=== PATIENT | male | born 1940 | race Caucasian/White ===

== ENCOUNTER 2017-10-09 10:58 | Observation (INO) | payer MEDICARE, MEDICAID ==
[~2017-10-09] VITALS: Ht 185.4 cm; Wt 103.5 kg
--- NOTE | 2017-10-09 11:33 | ED General ---
General Stated Complaint: FALL Source of Information: EMS History of Present Illness Time Seen by Provider: 10:58 Initial Comments PT ARRIVES VIA EMS FROM [facility] PT HAD UNWITNESSED FALL WITH UNKNOWN DOWN TIME, LAST KNOWN WELL TIME UNKNOWN PT WAS FOUND UNRESPONSIVE ON THE FLOOR NEXT TO HIS BED AT 1030 THIS AM, REMAINED UNRESPONSIVE UNTIL 1045 PT WITH ALTERED MENTAL STATUS PER SNF STAFF. PT HAS DEMENTIA PT C/O PAIN TO LEFT FLANK AREA TO EMS STAFF. PT CANNOT GIVE ANY INFORMATION ON ARRIVAL NOT REALLY ANSWERING QUESTIONS, BUT WILL NOD HEAD YES/NO OCCASIONALLY. PT IS NOT FOLLOWING COMMANDS WELL PT IS LETHARGIC ON ARRIVAL. Allergies and Home Medications Allergies Coded Allergies: amoxicillin (Verified Allergy, Unknown, 10/09/17) Home Medications Acetaminophen 500 Mg Tablet, 1,000 MG PO Q4H PRN for MILD PAIN/ FEVER OVER 100, (Reported) Atorvastatin Calcium 10 Mg Tablet, 10 MG PO HS, (Reported) Citalopram Hydrobromide 20 Mg Tablet, 20 MG PO DAILY, (Reported) Clonazepam 0.5 Mg Tablet, 0.5 MG PO TID, (Reported) Cyanocobalamin (Vitamin B-12) 1,000 Mcg Tab.subl, 1,000 MCG SL DAILY, (Reported) Gabapentin 800 Mg Tablet, 800 MG PO TID, (Reported) Glimepiride 1 Mg Tab, 1 MG PO DAILY, (Reported) Melatonin 3 Mg Tablet, 3 MG PO HS, (Reported) Melatonin 3 Mg Tablet, 9 MG PO HS PRN for INSOMNIA, (Reported) Memantine HCl 5 Mg Tablet, 5 MG PO DAILY, (Reported) Omeprazole 40 Mg Capsule.dr, 40 MG PO DAILY, (Reported) Promethazine HCl 25 Mg Tablet, 25 MG PO Q6H PRN for NAUSEA/VOMITING-2ND LINE, ( Reported) Sitagliptin Phosphate 100 Mg Tablet, 100 MG PO DAILY, (Reported) Sucralfate 1 Gm Tablet, 1 GM PO QID, (Reported) Tamsulosin HCl 0.4 Mg Cap, 0.4 MG PO HS, (Reported) Physical Exam Vital Signs Vital Sign - Last 12Hours 10/09/17 14:25 O2 Delivery Room Air Capillary Refill : General Appearance: No Apparent Distress, Other (LETHARGIC) HEENT: PERRL/EOMI, Other (NO EXTERNAL EVIDENCE OF TRAUM ) Respiratory: Normal Breath Sounds, No Accessory Muscle Use Cardiovascular: Regular Rate, Rhythm Gastrointestinal: Soft Extremity: No Pedal Edema Progress/Results/Core Measures Suspected Sepsis SIRS Temperature: Pulse: Respiratory Rate: Laboratory Tests 10/09/17 11:46: White Blood Count 7.7 10/10/17 04:40: White Blood Count 7.5 Blood Pressure / Mean: Laboratory Tests 10/09/17 11:46: Creatinine 0.82, INR Comment 1.0, Platelet Count 205, Total Bilirubin 0.4 10/10/17 04:40: Creatinine 0.84, Platelet Count 210, Total Bilirubin 0.4 Results/Orders Lab Results Laboratory Tests Test 10/09/17 11:46 10/09/17 12:27 10/09/17 20:33 10/10/17 04:40 Range/Units White Blood Count 7.7 7.5 4.3-11.0 10^3/uL Red Blood Count 4.38 4.23 L 4.35-5.85 10^6/uL Hemoglobin 14.0 13.4 13.3-17.7 G/DL Hematocrit 41 40 40-54 % Mean Corpuscular Volume 94 94 80-99 FL Mean Corpuscular Hemoglobin 32 32 25-34 PG Mean Corpuscular Hemoglobin Concent 34 34 32-36 G/DL Red Cell Distribution Width 14.3 14.3 10.0-14.5 % Platelet Count 205 210 130-400 10^3/uL Mean Platelet Volume 9.4 9.3 7.4-10.4 FL Neutrophils (%) (Auto) 62 61 42-75 % Lymphocytes (%) (Auto) 22 24 12-44 % Monocytes (%) (Auto) 10 10 0-12 % Eosinophils (%) (Auto) 5 5 0-10 % Basophils (%) (Auto) 1 1 0-10 % Neutrophils # (Auto) 4.8 4.6 1.8-7.8 X 10^3 Lymphocytes # (Auto) 1.7 1.8 1.0-4.0 X 10^3 Monocytes # (Auto) 0.8 0.8 0.0-1.0 X 10^3 Eosinophils # (Auto) 0.4 H 0.3 0.0-0.3 10^3/uL Basophils # (Auto) 0.1 0.1 0.0-0.1 10^3/uL Prothrombin Time 13.3 12.2-14.7 SEC INR Comment 1.0 0.8-1.4 Activated Partial Thromboplast Time 27 24-35 SEC Sodium Level 142 142 135-145 MMOL/L Potassium Level 4.3 3.8 3.6-5.0 MMOL/L Chloride Level 105 105 98-107 MMOL/L Carbon Dioxide Level 28 25 21-32 MMOL/L Anion Gap 9 12 5-14 MMOL/L Blood Urea Nitrogen 9 12 7-18 MG/DL Creatinine 0.82 0.84 0.60-1.30 MG/DL Estimat Glomerular Filtration Rate > 60 > 60 BUN/Creatinine Ratio 11 14 Glucose Level 79 102 70-105 MG/DL Calcium Level 9.5 9.2 8.5-10.1 MG/DL Magnesium Level 2.1 1.8-2.4 MG/DL Total Bilirubin 0.4 0.4 0.1-1.0 MG/DL Aspartate Amino Transf (AST/SGOT) 21 16 5-34 U/L Alanine Aminotransferase (ALT/SGPT) 23 21 0-55 U/L Alkaline Phosphatase 103 94 40-136 U/L Troponin I < 0.30 <0.30 NG/ML Total Protein 7.2 6.4 6.4-8.2 GM/DL Albumin 4.1 3.7 3.2-4.5 GM/DL Urine Color YELLOW Urine Clarity CLEAR Urine pH 8 5-9 Urine Specific [place] 1.015 L 1.016-1.022 Urine Protein NEGATIVE NEGATIVE Urine Glucose (UA) NEGATIVE NEGATIVE Urine Ketones NEGATIVE NEGATIVE Urine Nitrite NEGATIVE NEGATIVE Urine Bilirubin NEGATIVE NEGATIVE Urine Urobilinogen NORMAL NORMAL MG/DL Urine Leukocyte Esterase NEGATIVE NEGATIVE Urine RBC (Auto) NEGATIVE NEGATIVE Urine RBC NONE /HPF Urine WBC RARE /HPF Urine Squamous Epithelial Cells 0-2 /HPF Urine Renal Epithelial Cells NONE /HPF Urine Crystals NONE /LPF Urine Bacteria NEGATIVE /HPF Urine Casts NONE /LPF Urine Mucus NEGATIVE /LPF Urine Culture Indicated NO Glucometer 150 H 70-110 MG/DL My Orders Orders - JETT SORTO DO Saline Lock/Iv-Start (10/09/17 11:02) Monitor-Rhythm Ecg Trace Only (10/09/17 11:02) Ct Head/Cervical Spine Wo (10/09/17 11:02) Chest 1 View, Ap/Pa Only (10/09/17 11:02) Pelvis (1/17/18 11:02) Cbc With Automated Diff (10/09/17 11:02) Comprehensive Metabolic Panel (10/09/17 11:02) Magnesium (10/09/17 11:02) Protime With Inr (10/09/17 11:02) Partial Thromboplastin Time (10/09/17 11:02) Troponin I (10/09/17 11:02) Ua Culture If Indicated (10/09/17 11:02) Ekg Tracing (10/09/17 11:02) Ct Thoracic/Lumbar Spine Wo (10/09/17 11:10) Ct Chest/Abdomen/Pelvis Wo (10/09/17 11:10) Enoxaparin Injection (Lovenox Injection) (10/09/17 12:45) Vital Signs/I&O Vital Sign - Last 12Hours 10/10/17 10/10/17 10/10/17 10/10/17 12:00 12:06 13:00 15:38 Temp 99.2 99.0 Pulse 75 71 75 Resp 22 22 B/P (MAP) 125/81 (96) 138/84 (102) Pulse Ox 96 97 O2 Delivery Room Air Room Air Room Air 10/10/17 10/10/17 16:00 17:55 Pulse 75 Resp 22 B/P (MAP) 138/84 Pulse Ox 97 O2 Delivery Room Air Room Air Capillary Refill : Diagnostic Imaging Comments CT HEAD/CERVICAL SPINE--NO ACUTE PROCESS, CHRONIC CHANGES IN BRAIN AND CERVICAL SPINE, BENIGN APPEARING NODULE LEFT LOBE OF THYROID--PER RADIOLOGIST REPORT @ 1158 CXR--NO ACUTE PROCESS, PER RADIOLOGIST REPORT @ 1158 PELVIS XRAY--NO ACUTE PROCESS, PER RADIOLOGIST REPORT @ 1222 CT CHEST/ABDOMEN/PELVIS--NO ACUTE PROCESS, HIATAL HERNIA, OTHER CHRONIC APPEARING FINDINGS--PER RADIOLOGIST REPORT @ 1222 Reviewed: Reviewed by Me Departure Departure-Patient Inst. Referrals: DEANA ALFONSO DO (PCP/Family) Primary Care Physician JETT SORTO DO Oct 09, 2017 11:33
--- NOTE | 2017-10-09 11:40 | Diagnostic Imaging Report ---
Indication: Trauma. Patient was found on group home floor. Comparison: None Findings: Single frontal view of the chest is obtained. Heart size is upper limits normal. There is no central venous congestion. There is a pacer device in the left chest. Leads appear intact. There is a right coronary stent noted. There is no pneumothorax or pleural fluid seen. Lungs are clear. There are old healed rib fractures on the left. IMPRESSION: No evidence of an acute cardiopulmonary abnormality. Dictated by: Dictated on workstation # [id number]
--- NOTE | 2017-10-09 11:49 | Diagnostic Imaging Report ---
PROCEDURE: CT head and CT cervical spine without contrast. TECHNIQUE: Multiple contiguous axial images were obtained through the brain and cervical spine without the use of intravenous contrast. Sagittal and coronal reformations through the cervical spine were then performed. INDICATION: Unresponsive. COMPARISON: There are no prior studies available for comparison. CT OF THE HEAD: There is no mass, shift of the midline, or hemorrhage to suggest an acute intracranial abnormality. The ventricles are not abnormally dilated. There are areas of low density in the periventricular matter bilaterally. These findings are nonspecific but may be secondary to encephalomalacia from microvascular ischemia. Cortical atrophy is also seen. The degree of atrophy is consistent with the patient's age. The bone windows show no sign of a fracture or of a destructive lesion. The orbits are symmetrical and within normal limits. There is mucosal thickening of the left frontal and ethmoid sinuses. The sinuses are otherwise generally clear. IMPRESSION: 1. There is no evidence for an acute intracranial abnormality. 2. There is left frontal and left ethmoid sinusitis. CT CERVICAL SPINE: The reconstructed sagittal images show the vertebral body heights and alignment to be generally within normal limits. The intervertebral spaces are fairly well maintained. There is no evidence for a central high-grade stenosis, but there is narrowing of the neural foramen on the right at C5-6 due to bony overgrowth. There is no sign of retropharyngeal edema. The lung apices, where visualized, are clear. There is an 8 mm low-density nodule in the left lobe of the thyroid. This finding is most likely benign, but ultrasound would be recommended for further study. IMPRESSION: 1. There is no evidence for an acute bony abnormality. 2. The low-density nodule in the left lobe of the thyroid is of uncertain etiology although most likely benign. Recommendations as above. Dictated by: Dictated on workstation # [id number]
--- NOTE | 2017-10-09 12:04 | Diagnostic Imaging Report ---
PROCEDURE: CT chest, abdomen, and pelvis without contrast. TECHNIQUE: Multiple contiguous axial images were obtained through the chest, abdomen, and pelvis without the use of intravenous contrast. INDICATION: Unresponsive. COMPARISON: There are no previous CT examinations available for comparison. FINDINGS: The images through the thorax show that the heart is enlarged and that there are coronary artery calcifications evident. There is also a left-sided pacemaker in place. The aorta is not abnormally dilated. There is no obvious mediastinal or hilar adenopathy. There are few small nodes in the aortopulmonary window. These are nonspecific. The thyroid gland where visualized is unremarkable. There is dependent atelectasis in both lung bases. The lungs are otherwise generally clear. There is a 5.4 x 8.1 cm hiatal hernia. The stomach is otherwise unremarkable. The liver contains a small 2.5 cm lobulated area of low density in the right lobe. This is most likely a cyst. The gallbladder is surgically absent. The spleen, pancreas, adrenals, kidneys, aorta and inferior vena cava show no sign of an acute abnormality. The anterior abdominal wall is thinned, but there is no evidence for a ventral hernia. The urinary bladder and prostate gland are grossly unremarkable. There is no pelvic mass or free fluid collection evident. The appendix is not well visualized, but there are no indirect signs of acute appendicitis. The bone windows show no sign of a fracture or of a destructive lesion. IMPRESSION: 1. There is no acute abnormality of the chest, abdomen, or pelvis. 2. There is cardiomegaly and coronary artery disease. 3. There is a large hiatal hernia. Dictated by: Dictated on workstation # [id number]
[2017-10-09 12:10] LABS: BASOPHILS # (AUTO) 0.1 10^3/uL (0.0-0.1); BASOPHILS % (AUTO) 1 % (0-10); EOSINOPHILS # (AUTO) 0.4 10^3/uL (0.0-0.3); EOSINOPHILS % (AUTO) 5 % (0-10); HEMATOCRIT 41 % (40-54); LYMPHOCYTES # (AUTO) 1.7 X 10^3 (1.0-4.0); LYMPHOCYTES % (AUTO) 22 % (12-44); MEAN CORPUSCULAR HEMOGLOBIN 32 PG (25-34); MEAN CORPUSCULAR HGB CONC 34 G/DL (32-36); MEAN CORPUSCULAR VOLUME 94 FL (80-99); MEAN PLATELET VOLUME 9.4 FL (7.4-10.4); MONOCYTES # (AUTO) 0.8 X 10^3 (0.0-1.0); MONOCYTES % (AUTO) 10 % (0-12); NEUTROPHILS # (AUTO) 4.8 X 10^3 (1.8-7.8); NEUTROPHILS % (AUTO) 62 % (42-75); PLATELET COUNT 205 10^3/uL (130-400); RED BLOOD COUNT 4.38 10^6/uL (4.35-5.85); RED CELL DISTRIBUTION WIDTH 14.3 % (10.0-14.5); WHITE BLOOD COUNT 7.7 10^3/uL (4.3-11.0)
--- NOTE | 2017-10-09 12:17 | Diagnostic Imaging Report ---
INDICATION: Patient found down AP view of the pelvis Single view of pelvis shows no fracture or dislocation. IMPRESSION: Negative pelvis. Dictated by: Dictated on workstation # [id number]
[2017-10-09 12:20] LABS: PROTHROMBIN TIME PATIENT 13.3 SEC (12.2-14.7)
[2017-10-09 12:29] LABS: ALANINE AMINOTRANSFERASE 23 U/L (0-55); ALBUMIN 4.1 GM/DL (3.2-4.5); ALKALINE PHOSPHATASE 103 U/L (40-136); BILIRUBIN,TOTAL 0.4 MG/DL (0.1-1.0); BUN/CREATININE RATIO 11; CALCIUM 9.5 MG/DL (8.5-10.1); CARBON DIOXIDE 28 MMOL/L (21-32); CHLORIDE 105 MMOL/L (98-107); CREATININE SERUM 0.82 MG/DL (0.60-1.30); GFR ESTIMATED > 60; GLUCOSE 79 MG/DL (70-105); MAGNESIUM 2.1 MG/DL (1.8-2.4); POTASSIUM 4.3 MMOL/L (3.6-5.0); SODIUM 142 MMOL/L (135-145); TOTAL PROTEIN 7.2 GM/DL (6.4-8.2)
[2017-10-09 12:38] LABS: BILIRUBIN,URINE NEGATIVE (NEGATIVE); CLARITY,URINE CLEAR; COLOR,URINE YELLOW; GLUCOSE, URINE (UA) NEGATIVE (NEGATIVE); KETONES,URINE NEGATIVE (NEGATIVE); LEUKOCYTE ESTERASE ,URINE NEGATIVE (NEGATIVE); NITRITE,URINE NEGATIVE (NEGATIVE); PH,URINE 8 (5-9); PROTEIN,URINE NEGATIVE (NEGATIVE); UROBILINOGEN,URINE NORMAL (NORMAL)
[2017-10-09] MEDS ORDERED: GLMP1T PO (12:39)
[2017-10-09] MEDS ORDERED: MEMA5TAB PO (12:39)
[2017-10-09] MEDS ORDERED: TAMS0.4C98 PO (12:39)
[2017-10-09] MEDS ORDERED: CITA20TA12 PO (12:39)
[2017-10-09] MEDS ORDERED: ATOR10TA PO (12:39)
[2017-10-09] MEDS ORDERED: SITA100T12 PO (12:39)
[2017-10-09] MEDS ORDERED: CLON0.5T PO (12:39)
[2017-10-09] MEDS ORDERED: SUCR1TAB36 PO (12:39)
--- NOTE | 2017-10-09 12:40 | Diagnostic Imaging Report ---
INDICATION: Patient found down CT thoracic lumbar spine Vertebral body height appears normal. Alignment is normal. There is advanced degenerative disc change at L4-5. There are mild degenerative disc changes elsewhere. Posterior elements are intact. IMPRESSION: There are degenerative disc changes at L4-5. There are no acute abnormalities seen. Dictated by: Dictated on workstation # [id number]
[2017-10-09 12:53] LABS: BACTERIA,URINE NEGATIVE /HPF; SQUAMOUS EPITHELIAL CELL,UR 0-2 /HPF; WBC,URINE RARE /HPF
[2017-10-09] MEDS: ENOXAPARIN 40 MG/0.4 ML (LOVENOX) SYR SC ONE ×2 (13:52→14:04)
[2017-10-09 14:25] VITALS: BP 123/73
[2017-10-09] MEDS ORDERED: CYAN100015 SL (14:46)
[2017-10-09] MEDS ORDERED: GABA800T2 PO (14:46)
[2017-10-09] MEDS ORDERED: MELA3TAB PO (14:46)
[2017-10-09] MEDS ORDERED: PROM25TA14 PO (14:46)
[2017-10-09] MEDS ORDERED: OMEP40CA36 PO (14:46)
[2017-10-09] MEDS ORDERED: ACET-2267 PO (14:46)
[2017-10-09] MEDS ORDERED: CATHETER FLUSH 10 ML SYR IV PRN (15:00)
[2017-10-09 16:20] VITALS: BP 125/72
--- NOTE | 2017-10-09 19:06 | History & Physicial ---
History of Present Illness History of Present Illness Reason for visit/HPI patient is a resident of a [place] [facility]. Patient had a syncope attack by his bed at 1030 a.m. Patient had acute mental status change. Patient was unresponsive. Patient emergency room was unable to give any type of history [place] able to communicate. Patient has dementia. . Patient is responsive now. Patient states he had a blackout episode. Surgeries back in aortic aneurysm and a hernia and knee replacement and pacemaker due to slow heart rate in the 30s. Mother and father heart disease, brother cancer Date of Admission Oct 09, 2017 at 12:35 Time Seen by Provider: 19:00 I consulted on this patient on 10/09/17 19:01 Attending Physician Ap Alfonso DO Admitting Physician Ap Alfonso DO Consult Allergies and Home Medications Allergies Coded Allergies: amoxicillin (Verified Allergy, Unknown, 10/09/17) Home Medications Acetaminophen 500 Mg Tablet, 1,000 MG PO Q4H PRN for MILD PAIN/ FEVER OVER 100, (Reported) Atorvastatin Calcium 10 Mg Tablet, 10 MG PO HS, (Reported) Citalopram Hydrobromide 20 Mg Tablet, 20 MG PO DAILY, (Reported) Clonazepam 0.5 Mg Tablet, 0.5 MG PO TID, (Reported) Cyanocobalamin (Vitamin B-12) 1,000 Mcg Tab.subl, 1,000 MCG SL DAILY, (Reported) Gabapentin 800 Mg Tablet, 800 MG PO TID, (Reported) Glimepiride 1 Mg Tab, 1 MG PO DAILY, (Reported) Melatonin 3 Mg Tablet, 3 MG PO HS, (Reported) Melatonin 3 Mg Tablet, 9 MG PO HS PRN for INSOMNIA, (Reported) Memantine HCl 5 Mg Tablet, 5 MG PO DAILY, (Reported) Omeprazole 40 Mg Capsule.dr, 40 MG PO DAILY, (Reported) Promethazine HCl 25 Mg Tablet, 25 MG PO Q6H PRN for NAUSEA/VOMITING-2ND LINE, ( Reported) Sitagliptin Phosphate 100 Mg Tablet, 100 MG PO DAILY, (Reported) Sucralfate 1 Gm Tablet, 1 GM PO QID, (Reported) Tamsulosin HCl 0.4 Mg Cap, 0.4 MG PO HS, (Reported) Past Sufonit-Ybiics-Yyymda Hx Patient Social History Marrital Status: Employed/Student: unemployed Alcohol Use: Denies Use Recreational Drug Use: No Smoking Status: Current Everyday Smoker Type Used: Cigarettes Recent Foreign Travel: No Contact w/other who traveled: No Recent Infectious Disease Expo: No Surgeries Yes (hiatal hernia repair, AAA repair) Abdominal, Gallbladder, Pacemaker Respiratory Yes Cardiovascular Yes (chronic ischemic heart disease) Atrial Fibrillation, High Cholesterol Neurological Yes Dementia, Stroke, TIA Genitourinary No Gastrointestinal No Musculoskeletal Yes (generalized weakness) Endocrine History of Endocrine Disorders: Yes Endocrine Disorders: Diabetes, Non-Insulin dep HEENT History of HEENT Disorders: Yes Hearing Impairment: Hard of Hearing Cancer No Psychosocial History of Psychiatric Problem: Yes Behavioral Health Disorders: Anxiety, Depression Blood Transfusions History of Blood Disorders: No Adverse Reaction to a Blood Tr: No Constitutional: weakness EENTM: no symptoms reported Respiratory: no symptoms reported Cardiovascular: other (pacemaker) Gastrointestinal: no symptoms reported Genitourinary: no symptoms reported Physical Exam Vital Signs Vital Sign - Last 12Hours 10/09/17 14:25 O2 Delivery Room Air Capillary Refill : Less Than 3 Seconds General Appearance: No Apparent Distress, WD/WN Eyes: Bilateral Eye Normal Inspection HEENT: Normal ENT Inspection Neck: Full Range of Motion, Normal Inspection Respiratory: Chest Non Tender, No Accessory Muscle Use, No Respiratory Distress Cardiovascular: Regular Rate, Rhythm, No Murmur Gastrointestinal: Non Tender, Soft Assessment/Plan Assessment and Plan syncope. Altered mental status. Pacemaker. Dementia. Diabetes Problems: AP ALFONSO DO Oct 09, 2017 19:06
[2017-10-09] MEDS ORDERED: MELATONIN 3 MG TABLET PO PRN (19:45)
[2017-10-09] MEDS: SUCRALFATE 1 GM (CARAFATE) TAB PO SCH (20:35)
[2017-10-09] MEDS: TRIAMCINOLONE 0.1% CR (KENALOG) 15 GM TUBE TOP SCH (20:35)
[2017-10-09] MEDS: inSUlin (REGULAR) HUMAN 1 UNIT/0.01 ML (CHARGE PER UNIT) SC SCH (20:36)
[2017-10-09] MEDS: clonazePAM 0.5 MG (KlonoPIN) TAB PO SCH (20:36)
[2017-10-09] MEDS: GABAPENTIN 400 MG (NEURONTIN) CAP PO SCH (20:36)
[2017-10-09 20:37] VITALS: BP 127/68
[2017-10-09] MEDS ORDERED: MELATONIN 3 MG TABLET PO SCH (21:00)
[2017-10-09] MEDS ORDERED: ATORVASTATIN 10 MG (LIPITOR) TABLET PO SCH (21:00)
[2017-10-09] MEDS ORDERED: TAMSULOSIN 0.4 MG (FLOMAX) CAP PO SCH (21:00)
[2017-10-09] MEDS ORDERED: NON-FORMULARY MEDICATION 1 EA EA (Gabapentin 800 MG) PO SCH (21:00)
[2017-10-09] MEDS: CATHETER FLUSH 10 ML SYR IV SCH (21:59)
[2017-10-09] MEDS ORDERED: ENOXAPARIN 40 MG/0.4 ML (LOVENOX) SYR SC SCH (22:00)
[2017-10-09 22:30] VITALS: BP 118/63
[2017-10-10] VITALS: BP 115/70
[2017-10-10 04:00] VITALS: BP 133/77
[2017-10-10] MEDS: CATHETER FLUSH 10 ML SYR IV SCH ×2 (05:12→15:35)
[2017-10-10 05:17] LABS: BASOPHILS # (AUTO) 0.1 10^3/uL (0.0-0.1); BASOPHILS % (AUTO) 1 % (0-10); EOSINOPHILS # (AUTO) 0.3 10^3/uL (0.0-0.3); EOSINOPHILS % (AUTO) 5 % (0-10); HEMATOCRIT 40 % (40-54); HEMOGLOBIN 13.4 G/DL (13.3-17.7); LYMPHOCYTES # (AUTO) 1.8 X 10^3 (1.0-4.0); LYMPHOCYTES % (AUTO) 24 % (12-44); MEAN CORPUSCULAR HEMOGLOBIN 32 PG (25-34); MEAN CORPUSCULAR HGB CONC 34 G/DL (32-36); MEAN CORPUSCULAR VOLUME 94 FL (80-99); MEAN PLATELET VOLUME 9.3 FL (7.4-10.4); MONOCYTES # (AUTO) 0.8 X 10^3 (0.0-1.0); MONOCYTES % (AUTO) 10 % (0-12); NEUTROPHILS # (AUTO) 4.6 X 10^3 (1.8-7.8); NEUTROPHILS % (AUTO) 61 % (42-75); PLATELET COUNT 210 10^3/uL (130-400); RED BLOOD COUNT 4.23 10^6/uL (4.35-5.85); RED CELL DISTRIBUTION WIDTH 14.3 % (10.0-14.5); WHITE BLOOD COUNT 7.5 10^3/uL (4.3-11.0)
[2017-10-10 06:02] LABS: ALANINE AMINOTRANSFERASE 21 U/L (0-55); ALBUMIN 3.7 GM/DL (3.2-4.5); ALKALINE PHOSPHATASE 94 U/L (40-136); BILIRUBIN,TOTAL 0.4 MG/DL (0.1-1.0); BUN/CREATININE RATIO 14; CALCIUM 9.2 MG/DL (8.5-10.1); CARBON DIOXIDE 25 MMOL/L (21-32); CHLORIDE 105 MMOL/L (98-107); CREATININE SERUM 0.84 MG/DL (0.60-1.30); GFR ESTIMATED > 60; GLUCOSE 102 MG/DL (70-105); POTASSIUM 3.8 MMOL/L (3.6-5.0); SODIUM 142 MMOL/L (135-145); TOTAL PROTEIN 6.4 GM/DL (6.4-8.2)
[2017-10-10] MEDS: inSUlin (REGULAR) HUMAN 1 UNIT/0.01 ML (CHARGE PER UNIT) SC SCH ×2 (06:05→11:31)
[2017-10-10] MEDS ORDERED: LINAGLIPTIN (TRADJENTA) 5 MG TABLET PO SCH (07:00)
[2017-10-10] MEDS ORDERED: INFLUENZA TRIvalent 2017-2018 0.5 ML/45 MCG SYR IM ONE (07:00)
[2017-10-10] MEDS ORDERED: PANTOPRAZOLE 40 MG (PROTONIX) TAB PO SCH (07:00)
--- NOTE | 2017-10-10 07:39 | Progress Note (SOAP) ---
Subjective Time Seen by Provider: 07:35 Subjective/Events-last exam patient is awake today. Patient voices no complaints. Patient has thyroid nodule. CAT scan this morning. Objective Exam Vital Signs Date Time Temp Pulse Resp B/P (MAP) Pulse Ox O2 Delivery O2 Flow Rate FiO2 10/10/17 04:00 97.6 65 18 133/77 (95) 96 Room Air 10/10/17 04:00 Room Air 10/10/17 01:00 70 10/10/17 00:00 98.9 70 16 115/70 (85) 94 Room Air 10/10/17 00:00 Room Air 10/09/17 22:30 98.9 69 18 118/63 (81) 93 Room Air 10/09/17 21:00 96 Room Air 10/09/17 20:37 99.1 73 18 127/68 (87) 94 Room Air 10/09/17 20:37 Room Air 10/09/17 19:00 73 10/09/17 16:20 97.9 69 20 125/72 (89) 95 Room Air 10/09/17 16:20 Room Air 10/09/17 15:48 77 10/09/17 14:30 Room Air 10/09/17 14:25 96.9 69 20 123/73 (90) 96 Room Air 10/09/17 14:13 97.1 69 18 98 10/09/17 12:27 97.1 90 18 133/81 (98) 97 10/09/17 12:27 97.1 90 18 133/81 (98) 97 I & O 10/10/17 07:00 Intake Total 250 ml Output Total 300 ml Balance -50 ml Capillary Refill : Less Than 3 Seconds General Appearance: No Apparent Distress, WD/WN HEENT: Normal ENT Inspection Neck: Full Range of Motion, Normal Inspection Respiratory: Chest Non Tender, No Accessory Muscle Use, No Respiratory Distress Cardiovascular: Regular Rate, Rhythm, No Murmur Gastrointestinal: non tender, soft Results Lab Laboratory Tests 10/09/17 11:46 10/10/17 04:40 Laboratory Tests 10/09/17 11:46: White Blood Count 7.7, Red Blood Count 4.38, Hemoglobin 14.0, Hematocrit 41, Mean Corpuscular Volume 94, Mean Corpuscular Hemoglobin 32, Mean Corpuscular Hemoglobin Concent 34, Red Cell Distribution Width 14.3, Platelet Count 205, Mean Platelet Volume 9.4, Neutrophils (%) (Auto) 62, Lymphocytes (%) (Auto) 22, Monocytes (%) (Auto) 10, Eosinophils (%) (Auto) 5, Basophils (%) (Auto) 1, Neutrophils # (Auto) 4.8, Lymphocytes # (Auto) 1.7, Monocytes # (Auto) 0.8, Eosinophils # (Auto) 0.4H, Basophils # (Auto) 0.1, Prothrombin Time 13.3, INR Comment 1.0, Activated Partial Thromboplast Time 27, Sodium Level 142, Potassium Level 4.3, Chloride Level 105, Carbon Dioxide Level 28, Anion Gap 9, Blood Urea Nitrogen 9, Creatinine 0.82, Estimat Glomerular Filtration Rate > 60 , BUN/Creatinine Ratio 11, Glucose Level 79, Calcium Level 9.5, Magnesium Level 2.1, Total Bilirubin 0.4, Aspartate Amino Transf (AST/SGOT) 21, Alanine Aminotransferase (ALT/SGPT) 23, Alkaline Phosphatase 103, Troponin I < 0.30, Total Protein 7.2, Albumin 4.1 10/09/17 12:27: Urine Color YELLOW, Urine Clarity CLEAR, Urine pH 8, Urine Specific [place] 1.015L, Urine Protein NEGATIVE, Urine Glucose (UA) NEGATIVE, Urine Ketones NEGATIVE, Urine Nitrite NEGATIVE, Urine Bilirubin NEGATIVE, Urine Urobilinogen NORMAL, Urine Leukocyte Esterase NEGATIVE, Urine RBC (Auto) NEGATIVE, Urine RBC NONE, Urine WBC RARE, Urine Squamous Epithelial Cells 0-2, Urine Renal Epithelial Cells NONE, Urine Crystals NONE, Urine Bacteria NEGATIVE, Urine Casts NONE, Urine Mucus NEGATIVE, Urine Culture Indicated NO 10/09/17 20:33: Glucometer 150H 10/10/17 04:40: White Blood Count 7.5, Red Blood Count 4.23L, Hemoglobin 13.4, Hematocrit 40, Mean Corpuscular Volume 94, Mean Corpuscular Hemoglobin 32, Mean Corpuscular Hemoglobin Concent 34, Red Cell Distribution Width 14.3, Platelet Count 210, Mean Platelet Volume 9.3, Neutrophils (%) (Auto) 61, Lymphocytes (%) (Auto) 24, Monocytes (%) (Auto) 10, Eosinophils (%) (Auto) 5, Basophils (%) (Auto) 1, Neutrophils # (Auto) 4.6, Lymphocytes # (Auto) 1.8, Monocytes # (Auto) 0.8, Eosinophils # (Auto) 0.3, Basophils # (Auto) 0.1, Sodium Level 142, Potassium Level 3.8, Chloride Level 105, Carbon Dioxide Level 25, Anion Gap 12, Blood Urea Nitrogen 12, Creatinine 0.84, Estimat Glomerular Filtration Rate > 60, BUN/ Creatinine Ratio 14, Glucose Level 102, Calcium Level 9.2, Total Bilirubin 0.4, Aspartate Amino Transf (AST/SGOT) 16, Alanine Aminotransferase (ALT/SGPT) 21, Alkaline Phosphatase 94, Total Protein 6.4, Albumin 3.7 Assessment/Plan Assessment/Plan Assess & Plan/Chief Complaint incomplete. Dementia. Diabetes. Thyroid nodule. Altered mental status better Clinical Quality Measures DVT/VTE Risk/Contraindication: Risk Factor Score Per Nursin RFS Level Per Nursing on Admit: 4+=Very High DEANA ALFONSO DO Oct 10, 2017 07:39
[2017-10-10 08:39] VITALS: BP 135/73
[2017-10-10] MEDS: GABAPENTIN 400 MG (NEURONTIN) CAP PO SCH ×2 (08:41→15:35)
[2017-10-10] MEDS: SUCRALFATE 1 GM (CARAFATE) TAB PO SCH ×2 (08:41→15:34)
[2017-10-10] MEDS: clonazePAM 0.5 MG (KlonoPIN) TAB PO SCH ×2 (08:41→15:34)
[2017-10-10] MEDS: TRIAMCINOLONE 0.1% CR (KENALOG) 15 GM TUBE TOP SCH (08:43)
[2017-10-10] MEDS ORDERED: MEMANTINE 5 MG (NAMENDA) TABLET PO SCH (09:00)
[2017-10-10] MEDS ORDERED: NON-FORMULARY MEDICATION 1 EA EA (Sitagliptin Phosphate (Januvia) 100 MG) PO SCH (09:00)
[2017-10-10] MEDS ORDERED: NON-FORMULARY MEDICATION 1 EA EA (Omeprazole 40 MG) PO SCH (09:00)
--- NOTE | 2017-10-10 09:48 | Consultation-Cardiology ---
HPI-Cardiology Cardiology Consultation: Date of Consultation 10/10/17 Time Seen by Provider: 09:20 Date of Admission 10-09-17 Attending Physician Ap Avila DO Admitting Physician Ap Avila DO Consulting Physician Ruthy Beverly MD HPI: Chief Complaint: Syncope Mr. Cueva is a 77 year old male admitted to ICU 2 from the ED from the [facility] facility in which he resides. He reports he was in his wheelchair yesterday afternoon. He states he began to feel weak and lightheaded. He reports everything when black and he passed out. He is unclear as to how long he was out for. Per facility records and chart review they report approx 10 minutes. It was an unwitnessed syncopal episode. He reports a similar episode approx a year ago. He reports he had an episode of chest pain yesterday morning which felt like a heavy pressure on his chest. He reports he felt his heart rate started to go slow. He states this lasted for approx 2 minutes and then resolved. No other associated symptoms. No c/o dyspnea. He denies any lower extremity edema. No c/o palpitations. No c/o n/v/d. No c/o fever or chills. Review of Systems-Cardiology Review of Systems Constitutional: No chills, No fever Eyes: No vision change Ears/Nose/Throat: No epistaxis, No recent hearing loss Respiratory: As described under HPI Cardiovascular: As described under HPI Gastrointestinal: No constipation, No diarrhea, No nausea, No vomiting Genitourinary: No dysuria, No hematuria Musculoskeletal: no symptoms reported Skin: No rash, No ulcerations Psychiatric/Neurological: syncope Hematologic: No bleeding abnormalities VHN-Qqhocr-Wsiids Hx Patient Social History Marrital Status: Employed/Student: unemployed Alcohol Use: Denies Use Recreational Drug Use: No Smoking Status: Current Everyday Smoker Type Used: Cigarettes Recent Foreign Travel: No Recent Infectious Disease Expo: No Physical Abuse Screen: No Sexual Abuse: No Immunizations Up To Date Date of Influenza Vaccine: Sep 09, 2017 Past Medical History PMH As described under Assessment. Family Medical History Family History: Unknown family medical history Allergies and Home Medications Allergies Coded Allergies: amoxicillin (Verified Allergy, Unknown, 10/09/17) Home Medications Acetaminophen 500 Mg Tablet, 1,000 MG PO Q4H PRN for MILD PAIN/ FEVER OVER 100, (Reported) Atorvastatin Calcium 10 Mg Tablet, 10 MG PO HS, (Reported) Citalopram Hydrobromide 20 Mg Tablet, 20 MG PO DAILY, (Reported) Clonazepam 0.5 Mg Tablet, 0.5 MG PO TID, (Reported) Cyanocobalamin (Vitamin B-12) 1,000 Mcg Tab.subl, 1,000 MCG SL DAILY, (Reported) Gabapentin 800 Mg Tablet, 800 MG PO TID, (Reported) Glimepiride 1 Mg Tab, 1 MG PO DAILY, (Reported) Melatonin 3 Mg Tablet, 3 MG PO HS, (Reported) Melatonin 3 Mg Tablet, 9 MG PO HS PRN for INSOMNIA, (Reported) Memantine HCl 5 Mg Tablet, 5 MG PO DAILY, (Reported) Omeprazole 40 Mg Capsule.dr, 40 MG PO DAILY, (Reported) Promethazine HCl 25 Mg Tablet, 25 MG PO Q6H PRN for NAUSEA/VOMITING-2ND LINE, ( Reported) Sitagliptin Phosphate 100 Mg Tablet, 100 MG PO DAILY, (Reported) Sucralfate 1 Gm Tablet, 1 GM PO QID, (Reported) Tamsulosin HCl 0.4 Mg Cap, 0.4 MG PO HS, (Reported) Physical Exam-Cardiology Physical Exam Vital Signs/I&O Vital Sign - Last 12Hours 10/10/17 10/10/17 10/10/17 10/10/17 04:00 04:00 07:00 08:00 Temp 97.6 Pulse 65 70 Resp 18 B/P (MAP) 133/77 (95) Pulse Ox 96 O2 Delivery Room Air Room Air Room Air 10/10/17 10/10/17 10/10/17 08:39 09:00 12:06 Temp 99.2 99.2 Pulse 74 75 Resp 25 22 B/P (MAP) 135/73 (93) 125/81 (96) Pulse Ox 96 96 O2 Delivery Room Air Room Air Room Air Capillary Refill : Less Than 3 Seconds Constitutional: AAO x 3, well-developed, well-nourished HEENT: PERRL, hearing is well preserved, No xanthelasmas are seen Neck: carotid pulses are 2 + bilaterally Respiratory: No accessory muscle use, No respiratory distress, lungs clear to auscultation, rhonchi (scattered) Cardiovascular: regular rate-rhythm Gastrointestinal: No tender, soft, audible bowel sounds Rectal: deferred Extremities: no lower extremity edema bilateral Neurologic/Psychiatric: oriented x 3, grossly intact Skin: No rash, No ulcerations Data Review Labs Laboratory Tests 10/09/17 20:33: Glucometer 150H 10/10/17 04:40: White Blood Count 7.5, Red Blood Count 4.23L, Hemoglobin 13.4, Hematocrit 40, Mean Corpuscular Volume 94, Mean Corpuscular Hemoglobin 32, Mean Corpuscular Hemoglobin Concent 34, Red Cell Distribution Width 14.3, Platelet Count 210, Mean Platelet Volume 9.3, Neutrophils (%) (Auto) 61, Lymphocytes (%) (Auto) 24, Monocytes (%) (Auto) 10, Eosinophils (%) (Auto) 5, Basophils (%) (Auto) 1, Neutrophils # (Auto) 4.6, Lymphocytes # (Auto) 1.8, Monocytes # (Auto) 0.8, Eosinophils # (Auto) 0.3, Basophils # (Auto) 0.1, Sodium Level 142, Potassium Level 3.8, Chloride Level 105, Carbon Dioxide Level 25, Anion Gap 12, Blood Urea Nitrogen 12, Creatinine 0.84, Estimat Glomerular Filtration Rate > 60, BUN/ Creatinine Ratio 14, Glucose Level 102, Calcium Level 9.2, Total Bilirubin 0.4, Aspartate Amino Transf (AST/SGOT) 16, Alanine Aminotransferase (ALT/SGPT) 21, Alkaline Phosphatase 94, Total Protein 6.4, Albumin 3.7 Radiology NAME: IZABELLA CUEVA [facility] REC#: [id number] PT STATUS: REG ER : 02/20/1950 PHYSICIAN: JETT SORTO DO ADMIT DATE: 10/09/17/ER Draft Date of Exam:10/09/17 CT CHEST/ABDOMEN/PELVIS WO PROCEDURE: CT chest, abdomen, and pelvis without contrast. TECHNIQUE: Multiple contiguous axial images were obtained through the chest, abdomen, and pelvis without the use of intravenous contrast. INDICATION: Unresponsive. COMPARISON: There are no previous CT examinations available for comparison. FINDINGS: The images through the thorax show that the heart is enlarged and that there are coronary artery calcifications evident. There is also a left-sided pacemaker in place. The aorta is not abnormally dilated. There is no obvious mediastinal or hilar adenopathy. There are few small nodes in the aortopulmonary window. These are nonspecific. The thyroid gland where visualized is unremarkable. There is dependent atelectasis in both lung bases. The lungs are otherwise generally clear. There is a 5.4 x 8.1 cm hiatal hernia. The stomach is otherwise unremarkable. The liver contains a small 2.5 cm lobulated area of low density in the right lobe. This is most likely a cyst. The gallbladder is surgically absent. The spleen, pancreas, adrenals, kidneys, aorta and inferior vena cava show no sign of an acute abnormality. The anterior abdominal wall is thinned, but there is no evidence for a ventral hernia. The urinary bladder and prostate gland are grossly unremarkable. There is no pelvic mass or free fluid collection evident. The appendix is not well visualized, but there are no indirect signs of acute appendicitis. The bone windows show no sign of a fracture or of a destructive lesion. IMPRESSION: 1. There is no acute abnormality of the chest, abdomen, or pelvis. 2. There is cardiomegaly and coronary artery disease. 3. There is a large hiatal hernia. Dictated on workstation # [id number] Dict: 10/09/17 1150 Trans: 10/09/17 1204 [id number] Interpreted by: TOM CORDON MD Electronically signed by: NAME: IZABELLA CUEVA MED REC#: [id number] PT STATUS: ADM Fernando : 1940 PHYSICIAN: JETT SORTO DO ADMIT DATE: 10/09/17/ICU Signed Date of Exam: 10/09/17 CT THORACIC/LUMBAR SPINE WO INDICATION: Patient found down CT thoracic lumbar spine Vertebral body height appears normal. Alignment is normal. There is advanced degenerative disc change at L4-5. There are mild degenerative disc changes elsewhere. Posterior elements are intact. IMPRESSION: There are degenerative disc changes at L4-5. There are no acute abnormalities seen. Dictated by: Dictated on workstation # [id number] Dict: 10/09/17 1223 Trans: 10/09/17 1336 Interpreted by: STEFFEN PHELAN MD Electronically signed by: STEFFEN PHELAN MD 10/09/17 1330 NAME: IZABELLA CUEVA MED REC#: [id number] PT STATUS: ADM Fernando : 1940 PHYSICIAN: JETT SORTO DO ADMIT DATE: 10/09/17/ICU Signed Date of Exam: 10/09/17 CHEST 1 VIEW, AP/PA ONLY Indication: Trauma. Patient was found on fdc floor. Comparison: None Findings: Single frontal view of the chest is obtained. Heart size is upper limits normal. There is no central venous congestion. There is a pacer device in the left chest. Leads appear intact. There is a right coronary stent noted. There is no pneumothorax or pleural fluid seen. Lungs are clear. There are old healed rib fractures on the left. IMPRESSION: No evidence of an acute cardiopulmonary abnormality. 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 Jo February 2011. Pt reports device has not been checked in 3 years Reports h/o CAD with stent placement in the early at [facility] in [place], [place] - reports he was following with Dr. Gamble at [facility], but has not seen him in several years Reports h/o AAA repair with graft placement by Dr. Bojorquez at [facility] in [place], [place] in the s or s Paroxysmal a-fib which he reports was diagnosed 3 years ago. He states he refuses OAC of any kind other than ASA HTN HLP DM Type 2 GERD Hiatal hernia H/O traumatic brain injury from [place] Discussion and Recomendations Unwitnessed syncopal episode of undetermined etiology PPM with recent pulse generator change out in 2010; we will interrogate device ( pt reports has not been done in 3 years) Echocardiogram to evaluate structure and LVEF H/O CAD with stent placement in the . Episode of chest discomfort yesterday. No evidence of ACS. Discussed coronary work up to which he refuses. He desires conservative tx H/O PAF. He is not on OAC. We have discussed this with him in detail including risk of stroke. He verbalizes understanding and refuses OAC. He is agreeable to low dose ASA tx Monitor lab Continue home medications Further rec will be based on his hospital course We would like to thank medical services for this consult This consult is being scribed by Dagoberto Heard APRN on behalf of Dr. Beverly after discussion regarding plan of care Clinical Quality Measures DVT/VTE Risk/Contraindication: Risk Factor Score Per Nursin RFS Level Per Nursing on Admit: 4+=Very High Physician Assessment Physician Assessment No cp or palp or syncope at time of my exam Lungs: clear Cor: reg Ext: no c/c/e A&R * As documented in our note above that I updated (italics) and as noted below * I had a detailed conversation with him. He refuses any coronary w/u. Does agree to echo and pacemaker interrogation * Monitor labs VISH HEARD Oct 10, 2017 09:48 RUTHY BEVERLY MD FACP FAC CCDS Oct 10, 2017 13:12
[2017-10-10] MEDS ORDERED: ASPIRIN 325 MG (5 GR) TABLET PO NR (10:45)
--- NOTE | 2017-10-10 10:49 | Diagnostic Imaging Report ---
INDICATION: Thyroid nodule noted on CT. TECHNIQUE: Grayscale sonographic images of the thyroid gland. CORRELATION STUDY: None FINDINGS: RIGHT LOBE: Borderline enlarged at 5.1 x 1.9 x 1.6 cm. There is normal echotexture about the right lobe. LEFT LOBE: Borderline enlarged at 4.8 x 1.8 x 2.0 cm. At the superior pole are two small adjacent hypoechoic nodules incompletely characterized, may reflect small cysts measuring up to 3 mm. Otherwise, no concerning dominant mass. Isthmus appears unremarkable. IMPRESSION: 1. Borderline enlarged thyroid gland. 2. Two adjacent small hypoechoic nodules, nonspecific, may reflect small cysts, 3 mm in size. (Normal gland size: 4-5 x 2 x 2 cm) Dictated by: Dictated on workstation # [id number]
[2017-10-10 12:06] VITALS: BP 125/81
--- NOTE | 2017-10-10 12:44 | Diagnostic Imaging Report ---
PROCEDURE: CT head without contrast. TECHNIQUE: Multiple contiguous axial images were obtained through the brain without the use of intravenous contrast. INDICATION: Fall. COMPARISON: CT head without contrast 10/09/2017. FINDINGS: Advanced generalized cerebral and cerebellar parenchymal volume loss. Moderate to advanced leukoaraiosis. No intracranial hemorrhage, mass effect hydrocephalus or extra-axial fluid collections. Intracranial vascular calcifications. No CT evidence of a territorial infarct. Persistent opacification of the left frontal and anterior left ethmoid sinuses. The mastoids are clear, osseous structures are intact. IMPRESSION: Stable exam. No acute intracranial CT findings. Dictated by: Dictated on workstation # [id number]
[2017-10-10 15:38] VITALS: BP 138/84
[2017-10-10 17:55] VITALS: BP 138/84
[2017-10-11] MEDS ORDERED: ASPIRIN 325 MG (5 GR) TABLET PO SCH (09:00)
--- NOTE | 2017-10-14 07:26 | Clinic Account Progress/Dx ---
Clinic Account Progress/Dx DIAGNOSIS: Time Seen by Provider: 07:25 syncope episode unwitnessed. Chest pain. Altered mental status. Dementia. History of bradycardia with pacemaker. Coronary artery disease. Hypertension. Diabetes. Hiatal hernia DEANA ALFONSO DO Oct 14, 2017 07:26
== END 2017-10-10 15:18 ==
LOC: ER 10:59 → ICU 12:35 → EDBD 12:35 → UNDOADMOB 12:35 → ICU 14:32 → UNDODISOB 10-10 17:55
PROVIDERS: ADMIT Family Medicine; ATTEND Family Medicine
DX: R55 Syncope and collapse (principal); R07.9 Chest pain, unspecified; I25.10 Atherosclerotic heart disease of native coronary artery without angina pectoris; Z95.5 Presence of coronary angioplasty implant and graft; I48.0 Paroxysmal atrial fibrillation; I10 Essential (primary) hypertension; E78.5 Hyperlipidemia, unspecified; E11.9 Type 2 diabetes mellitus without complications; K44.9 Diaphragmatic hernia without obstruction or gangrene; F03.90 Unspecified dementia, unspecified severity, without behavioral disturbance, psychotic disturbance, mood disturbance, and anxiety; E04.1 Nontoxic single thyroid nodule; Z79.82 Long term (current) use of aspirin; Z79.899 Other long term (current) drug therapy; Z88.1 Allergy status to other antibiotic agents; Z87.820 Personal history of traumatic brain injury; Z96.659 Presence of unspecified artificial knee joint; Z95.0 Presence of cardiac pacemaker
CPT/HCPCS: 36415; 70450; 71045; 71250; 72125; 72128; 72131; 72170; 74176; 76536; 80053; 81000; 82962; 83735; 84484; 85025; 85610; 85730; 93005; 93041; 93306

== ENCOUNTER → 2017-10-28 | Outpatient (CLI) | payer MEDICARE, MEDICAID ==
[~2017-10-28] MED LIST: ACET-2267 PO; ATOR10TA PO; CITA20TA12 PO; CLON0.5T PO; CYAN100015 SL; GABA800T2 PO; GLMP1T PO; MELA3TAB PO; MEMA5TAB PO; OMEP40CA36 PO; PROM25TA14 PO; SITA100T12 PO; SUCR1TAB36 PO; TAMS0.4C98 PO
--- NOTE | 2017-10-28 18:34 | Diagnostic Imaging Report ---
INDICATION: Chest pain x1 week. EXAMINATION: PA and lateral chest. FINDINGS: There is a dual-chamber pacemaker. Heart size and pulmonary vascularity are normal. Lungs are clear. There are no effusions or pneumothoraces. IMPRESSION: No acute abnormalities in the chest. Dictated by: Dictated on workstation # [id number]
== END ==
LOC: RAD 14:41
PROVIDERS: ATTEND Family Medicine
DX: J18.9 Pneumonia, unspecified organism (principal)
CPT/HCPCS: 71046

== ENCOUNTER → 2018-03-11 | Outpatient (CLI) | payer MEDICARE, MEDICAID ==
[~2018-03-11] MED LIST changes: +IOHEXOL 350 MG/ML 100 ML (OMNIPAQUE 350) VIAL IV ONE; +NS 250 ML (IVPB) BAG IV ONE; +ONDA4TAB8 SL
--- NOTE | 2018-03-11 15:05 | Diagnostic Imaging Report ---
PROCEDURE: CT abdomen and pelvis with contrast. TECHNIQUE: Multiple contiguous axial images were obtained through the abdomen and pelvis after administration of intravenous contrast. INDICATION: Mid upper abdominal pain x2-3 weeks, bloating, losing weight. CORRELATION STUDY: 10/09/2017. FINDINGS: LOWER THORAX: Heart size is borderline. There is presence of pacemaker leads. Moderate-sized hiatal hernia is present. Calcified granuloma at the right lower lobe medially. LIVER: 2 cm low-density mass in the right lobe of the liver appears generally stable. Liver is otherwise unremarkable. GALLBLADDER: Absent with clips in the fossa. No significant bile duct dilatation. SPLEEN: Unremarkable. PANCREAS: Few calcifications could be reflective of perhaps calcific pancreatitis. Otherwise unremarkable. ADRENAL GLANDS: Unremarkable. KIDNEYS: Normal configuration. No calcification or obstruction. ABDOMINAL AORTA: Scattered areas of peripheral plaque and calcification. This includes major branches. No definitive stenosis. Slightly ectatic at 3.1 cm. There is an area of outpouched aneurysm at the aortic bifurcation and left common iliac artery origin. This area measures 2.7 cm transverse with a maximum transverse dimension of 2.7 cm. Some peripheral thrombus within the aneurysm. Mild calcification through the remainder of the common, internal and external iliac arteries. Inferior vena cava unremarkable. Portal venous system unremarkable. GASTROINTESTINAL TRACT: Several small midline abdominal wall hernia defects are present containing fat only. No bowel inclusion. The stomach is decompressed but somewhat thick walled. Small bowel with a few mildly prominent fluid-filled loops of bowel with slight variation in the caliber. No evidence for obstruction. Colon demonstrates [id number]-[id number] distal colonic fecal loading. No obstruction or inflammatory type change. Appendix not well defined. No abnormal ascites or free air. URINARY BLADDER: Unremarkable. REPRODUCTIVE: Prostate gland is mildly prominent, slightly lobulated and heterogeneous. OSSEOUS STRUCTURES: Prior decompressive laminectomy at the L4 level. Advanced degenerative change of the visualized lumbar spine. OTHER: None. IMPRESSION: 1. Negative for acute abnormality of the abdomen or pelvis. 2. Stomach does appear to be largely decompressed, but there may be some wall thickening which can be associated with gastritis. Small to moderate-sized hiatal hernia. No evidence for bowel obstruction. Ayof-vk-gdtmzrqg distal colonic fecal loading. 2. Aortoiliac vascular calcification. Small area of asymmetric aneurysmal dilatation of the aortic bifurcation extending to the left common iliac artery. Maximum dimension of the abdominal aorta 3 cm. Dictated by: Dictated on workstation # [id number]
== END ==
LOC: RAD 07:37
PROVIDERS: ATTEND Family Medicine
DX: K44.9 Diaphragmatic hernia without obstruction or gangrene (principal); I70.0 Atherosclerosis of aorta; I72.3 Aneurysm of iliac artery; R63.4 Abnormal weight loss
CPT/HCPCS: 74177

== ENCOUNTER 2018-04-15 12:37 | Emergency (ER) | payer MEDICARE, MEDICAID ==
[~2018-04-15] VITALS: Ht 182.9 cm; Wt 90.8 kg
[~2018-04-15 12:37] MED LIST changes: -IOHEXOL 350 MG/ML 100 ML (OMNIPAQUE 350) VIAL IV ONE; -NS 250 ML (IVPB) BAG IV ONE
--- NOTE | 2018-04-15 13:17 | ED Trauma-Multisystem ---
General Chief Complaint: Trauma-Non Activation Stated Complaint: FALL,BACK PAIN Source of Information: Patient, Caregiver Exam Limitations: No Limitations History of Present Illness Date Seen by Provider: Apr 15, 2018 Time Seen by Provider: 13:11 Initial Comments Patient is an 78-year-old male who is brought into the emergency room with complaints of a fall off of the commode today. He was brought in to the emergency room by [facility] with lumbar back pain and hitting his head. There is no ecchymosis, swelling, or abrasions noted anywhere. The long term reports that he has a lot of behavioral issues and they believe that this is attributing to his complaints. Denies head and neck pain. They report that there was no LOC with the fall and it was witnessed. Occurred: Just Prior to Arrival Severity: Mild Pain/Injury Location: Back Method of Injury: Fall Loss of Consciousness: No Loss of Consciousness Associated Symptoms (Fall): No Muscle Spasms, No Neck Pain, No Shortness of Air Allergies and Home Medications Allergies Coded Allergies: amoxicillin (Verified Allergy, Unknown, 10/09/17) Home Medications Acetaminophen 500 Mg Tablet, 1,000 MG PO Q4H PRN for MILD PAIN/ FEVER OVER 100, (Reported) Atorvastatin Calcium 10 Mg Tablet, 10 MG PO HS, (Reported) Citalopram Hydrobromide 20 Mg Tablet, 20 MG PO DAILY, (Reported) Clonazepam 0.5 Mg Tablet, 0.5 MG PO TID, (Reported) Cyanocobalamin (Vitamin B-12) 1,000 Mcg Tab.subl, 1,000 MCG SL DAILY, (Reported) Gabapentin 800 Mg Tablet, 800 MG PO TID, (Reported) Glimepiride 1 Mg Tab, 1 MG PO DAILY, (Reported) Melatonin 3 Mg Tablet, 3 MG PO HS, (Reported) Melatonin 3 Mg Tablet, 9 MG PO HS PRN for INSOMNIA, (Reported) Memantine HCl 5 Mg Tablet, 5 MG PO DAILY, (Reported) Omeprazole 40 Mg Capsule.dr, 40 MG PO DAILY, (Reported) Ondansetron 4 Mg Tab.rapdis, 4 MG SL Q4H PRN for NAUSEA/VOMITING-1ST LINE Prescribed by: SWAPNIL WILSON on 01/13/18 1423 Promethazine HCl 25 Mg Tablet, 25 MG PO Q6H PRN for NAUSEA/VOMITING-2ND LINE, ( Reported) Sitagliptin Phosphate 100 Mg Tablet, 100 MG PO DAILY, (Reported) Sucralfate 1 Gm Tablet, 1 GM PO QID, (Reported) Tamsulosin HCl 0.4 Mg Cap, 0.4 MG PO HS, (Reported) Patient Home Medication List Home Medication List Reviewed: Yes Review of Systems Constitutional: see HPI; No chills, No diaphoresis, No dizziness, No fever Respiratory: see HPI; No cough, No dyspnea on exertion, No hemoptysis, No orthopnea Cardiovascular: See HPI; Denies Chest Pain, Denies Edema Musculoskeletal: see HPI, back pain (lumbar back pain); No gout, No joint pain Skin: see HPI; No change in color, No change in hair/nails All Other Systems Reviewed Negative Unless Noted: Yes Past Lchmgtl-Oyhdrp-Qocobp Hx Past Med/Social Hx: Reviewed Nursing Past Med/Soc Hx Patient Social History Type Used: Cigarettes Recent Hopitalizations: No Immunizations Up To Date Date of Influenza Vaccine: Sep 09, 2017 Seasonal Allergies Seasonal Allergies: No Past Medical History Surgeries: Yes (UNKNOWN EXCEPT FOR EVIDENCE OF PACEMAKER) Pacemaker Respiratory: Yes COPD Currently Using CPAP: No Currently Using BIPAP: No Cardiac: Yes Coronary Artery Disease, High Cholesterol, Hypertension Neurological: Yes Dementia, Stroke, TIA Genitourinary: Yes Benign Prostatic Hyperpl Gastrointestinal: Yes Gastrointestinal Bleed, Hiatal Hernia Musculoskeletal: Yes (CHRONIC PAIN; GENERALIZED WEAKNESS; UNSTEADY GAIT) Chronic Back Pain Endocrine: Yes Diabetes, Non-Insulin dep HEENT: Yes Loss of Vision: Right Hearing Impairment: Deaf Cancer: No Psychosocial: Yes (SUICIDAL IDEATIONS) Anxiety, Depression Integumentary: Yes (bilateral ears) Recent Skin Changes Blood Disorders: No Adverse Reaction/Blood Tranf: No Family Medical History Reviewed Nursing Family Hx Unknown family medical history Physical Exam Vital Signs Vital Signs - First Documented 04/15/18 12:37 Temp 96.2 Pulse 78 Resp 15 B/P (MAP) 137/78 (97) Pulse Ox 93 O2 Delivery Room Air Height, Weight, BMI Height: 6'0" Weight: 200lbs. 2.0oz. [id number]; 30.3 BMI Method:Estimated General Appearance: No Apparent Distress, WD/WN Head: No Evidence of Injury; No Active Bleeding, No Hurtado's Sign, No Contusions, No Ecchymosis, No Raccoon Eyes Eyes: Bilateral Eye Normal Inspection, Bilateral Eye PERRL, Bilateral Eye EOMI Neck: Full Range of Motion, Normal Inspection, Non Tender, Supple Cardiovascular: Regular Rate, Rhythm, No Edema, No Gallop, No JVD, No Murmur, Normal Peripheral Pulses Respiratory: Chest Non Tender, Lungs Clear, Normal Breath Sounds, No Accessory Muscle Use, No Respiratory Distress Back: Normal Inspection, No CVA Tenderness, Vertebral Tenderness (lumbar vertebral tenderness) Neurologic/Psychiatric: Alert, Oriented x3, Normal Mood/Affect Skin: Normal Color, Warm/Dry Bucky Coma Score Best Eye Response (Bucky): (4) Open Spontaneously Best Verbal Response (Bucky): (5) Oriented Best Motor Response (Bucky): (6) Obeys Commands Bucky Total: 15 Progress/Results/Core Measures Results/Orders Lab Results Laboratory Tests Test 04/15/18 12:45 Range/Units Glucometer 91 70-110 MG/DL My Orders Orders - PHILLIP MARTINEZ Ct Head/Cervical Spine Wo (04/15/18 12:49) Ct Lumbar Spine Wo (04/15/18 12:51) Vital Signs/I&O 04/15/18 04/15/18 12:37 17:27 Temp 96.2 98.4 Pulse 78 71 Resp 15 12 B/P (MAP) 137/78 (97) 98/71 Pulse Ox 93 97 O2 Delivery Room Air Room Air Progress Progress Note : Time: 13:14 Progress Note Patient removed his own c-collar at this time. He refuses to put it back on, he refuses to lay in the supine position, he states "no more collar". He is curled up in the position lying in bed sleeping. I informed him that we're waiting for him to go to CT scan for imaging. 1500: Patient was informed of normal imaging studies. The long term was called for transportation back. Departure Impression Primary Impression: Fall Additional Impression: Chronic back pain Disposition: 01 HOME, SELF-CARE Condition: Stable/Unchanged Departure-Patient Inst. Decision time for Depature: 14:37 Referrals: DEANA ALFONSO DO (PCP/Family) Primary Care Physician Patient Instructions: Low Back Pain (DC) Add. Discharge Instructions: Take your home medications as previously prescribed. Follow-up with your primary care provider within 1 week for a recheck. Return back to the emergency room for any concerns as needed. All discharge instructions reviewed with patient and/or family. Voiced understanding. PHILLIP MARTINEZ Apr 15, 2018 13:16
--- NOTE | 2018-04-15 14:17 | Diagnostic Imaging Report ---
Indication: Fall off toilet, head and neck injury CT brain findings: Noncontrast brain CT performed and compared with 10/10/2017. There are mild diffuse atrophic changes. There is no acute intracranial hemorrhage or subdural or epidural collection. There are mild low-density changes in the periventricular white matter compatible with chronic ischemic changes. There is no acute appearing intracranial finding. Calvarial windows show no fractures. There is opacification of the left frontal sinus. This was also the case on 10/10/2017. CT cervical spine findings: Axial slices were obtained with sagittal and coronal reconstructions without contrast. There is no evidence of cervical spine fracture. There is no subluxation or malalignment. There is some disc space narrowing and osteophyte formation at C5-6 and C6-7. The facets show diffuse mild degenerative change. IMPRESSION: CT brain shows chronic changes as above. No acute intracranial abnormality or calvarial fracture. There is chronic opacification of the left frontal sinus. CT cervical spine shows degenerative changes as above with no acute fracture or subluxation. Dictated by: Dictated on workstation # [id number]
--- NOTE | 2018-04-15 14:23 | Diagnostic Imaging Report ---
PROCEDURE: CT lumbar spine without contrast. TECHNIQUE: Multiple contiguous axial images were obtained through the lumbar spine without the use of intravenous contrast. Sagittal and coronal reformations were then performed. INDICATION: Fall from toilet, back pain, previous lumbar surgery. Study correlated with abdominal pelvic CT performed 03/11/2018, including sagittal and coronal reconstructions. Grade 1 retrolisthesis L4 and L5 with L4 laminectomy and advanced localized spondylosis and facet arthrosis identical in appearance to the previous study. Remaining levels are aligned normally. Partially visualized sacrum revealed no acute or chronic fracture. The SI joints show no diastases. No paravertebral hemorrhage. No acute endplate irregularity. The visualized lower posterior ribs nonacute. There has been no change when compared to previous CT. Impression: Stable spondylosis, facet arthrosis and degenerative retrolisthesis grade 1 L4 and L5. Postsurgical changes stable without fluid collection. No lumbar fracture or acute abnormality. Not mentioned above stable atherosclerotic infrarenal aortic ectasia 2.9 cm without rupture. Dictated by: Dictated on workstation # [id number]
[2018-04-15 17:27] VITALS: BP 98/71
== END 2018-04-15 17:27 | disposition home or self-care (01) ==
LOC: EDUNIT# 12:37 → ER 12:38
DX: M54.5 Low back pain (principal); G89.29 Other chronic pain; J44.9 Chronic obstructive pulmonary disease, unspecified; I25.10 Atherosclerotic heart disease of native coronary artery without angina pectoris; E78.00 Pure hypercholesterolemia, unspecified; I10 Essential (primary) hypertension; F03.90 Unspecified dementia, unspecified severity, without behavioral disturbance, psychotic disturbance, mood disturbance, and anxiety; E11.9 Type 2 diabetes mellitus without complications; F41.9 Anxiety disorder, unspecified; F32.9 Major depressive disorder, single episode, unspecified; Z86.73 Personal history of transient ischemic attack (TIA), and cerebral infarction without residual deficits; Z88.1 Allergy status to other antibiotic agents; Z79.84 Long term (current) use of oral hypoglycemic drugs; Z95.0 Presence of cardiac pacemaker; W18.11XA Fall from or off toilet without subsequent striking against object, initial encounter
CPT/HCPCS: 70450; 72125; 72131; 82962

== ENCOUNTER 2018-05-29 10:56 | Emergency (ER) | payer MEDICARE, MEDICAID ==
[~2018-05-29] VITALS: Ht 185.4 cm; Wt 98.4 kg
[2018-05-29] MEDS ORDERED: ASPIRIN 81 MG CHEW (CHILDREN'S ASA) PO STA (11:10)
[2018-05-29 11:34] LABS: BASOPHILS # (AUTO) 0.1 10^3/uL (0.0-0.1); BASOPHILS % (AUTO) 1 % (0-10); EOSINOPHILS # (AUTO) 0.3 10^3/uL (0.0-0.3); EOSINOPHILS % (AUTO) 3 % (0-10); HEMATOCRIT 41 % (40-54); HEMOGLOBIN 13.8 G/DL (13.3-17.7); LYMPHOCYTES # (AUTO) 2.4 X 10^3 (1.0-4.0); LYMPHOCYTES % (AUTO) 26 % (12-44); MEAN CORPUSCULAR HEMOGLOBIN 32 PG (25-34); MEAN CORPUSCULAR HGB CONC 34 G/DL (32-36); MEAN CORPUSCULAR VOLUME 95 FL (80-99); MEAN PLATELET VOLUME 9.2 FL (7.4-10.4); MONOCYTES # (AUTO) 1.1 X 10^3 (0.0-1.0); MONOCYTES % (AUTO) 11 % (0-12); NEUTROPHILS # (AUTO) 5.7 X 10^3 (1.8-7.8); NEUTROPHILS % (AUTO) 60 % (42-75); PLATELET COUNT 197 10^3/uL (130-400); RED BLOOD COUNT 4.31 10^6/uL (4.35-5.85); RED CELL DISTRIBUTION WIDTH 14.1 % (10.0-14.5); WHITE BLOOD COUNT 9.5 10^3/uL (4.3-11.0)
[2018-05-29 11:45] LABS: PROTHROMBIN TIME PATIENT 12.7 SEC (12.2-14.7)
[2018-05-29 11:51] LABS: ALANINE AMINOTRANSFERASE 30 U/L (0-55); ALBUMIN 4.3 GM/DL (3.2-4.5); ALKALINE PHOSPHATASE 89 U/L (40-136); BILIRUBIN,TOTAL 0.4 MG/DL (0.1-1.0); BUN/CREATININE RATIO 12; CALCIUM 9.8 MG/DL (8.5-10.1); CARBON DIOXIDE 25 MMOL/L (21-32); CHLORIDE 104 MMOL/L (98-107); CREATININE SERUM 0.82 MG/DL (0.60-1.30); GFR ESTIMATED > 60; GLUCOSE 64 MG/DL (70-105); MAGNESIUM 2.1 MG/DL (1.8-2.4); POTASSIUM 4.1 MMOL/L (3.6-5.0); SODIUM 137 MMOL/L (135-145); TOTAL PROTEIN 7.5 GM/DL (6.4-8.2)
--- NOTE | 2018-05-29 11:53 | ED Chest Pain ---
General Chief Complaint: Chest Pain Stated Complaint: CP Nursing Triage Note: PT ARRIV[place]C [place], PT CO OF CHEST PAIN STARTED LAST PM. PT STATES HAS PACEMAKER Nursing Sepsis Screen: No Definite Risk Source: patient Exam Limitations: no limitations History of Present Illness Date Seen by Provider: May 29, 2018 Time Seen by Provider: 11:08 Initial Comments Here with report of chest pain that started last night at about 10 p.m. States that is left-sided and aching. States he had when he fell asleep. Not sure that he had an overnight but then had it again this morning when he woke up. Currently the pain is gone. He is worried about his pacemaker because it hurts right naris pacemaker. Denies nausea or vomiting. States that he is not sleeping well and it was reported from the long-term and they just changed his meds. He has been in [facility] recently for behavioral disturbances. 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 NTG SL JAVA SECURITY ENGINEER: No Associated Symptoms: No abdominal pain, No back pain, No diaphoresis; fatigue; No nausea/vomiting, No shortness of breath, No weakness Allergies and Home Medications Allergies Coded Allergies: amoxicillin (Verified Allergy, Unknown, 10/09/17) Home Medications Acetaminophen 500 Mg Tablet, 1,000 MG PO Q4H PRN for MILD PAIN/ FEVER OVER 100, (Reported) Atorvastatin Calcium 10 Mg Tablet, 10 MG PO HS, (Reported) Citalopram Hydrobromide 20 Mg Tablet, 20 MG PO DAILY, (Reported) Clonazepam 0.5 Mg Tablet, 0.5 MG PO TID, (Reported) Cyanocobalamin (Vitamin B-12) 1,000 Mcg Tab.subl, 1,000 MCG SL DAILY, (Reported) Gabapentin 800 Mg Tablet, 800 MG PO TID, (Reported) Glimepiride 1 Mg Tab, 1 MG PO DAILY, (Reported) Melatonin 3 Mg Tablet, 3 MG PO HS, (Reported) Melatonin 3 Mg Tablet, 9 MG PO HS PRN for INSOMNIA, (Reported) Memantine HCl 5 Mg Tablet, 5 MG PO DAILY, (Reported) Omeprazole 40 Mg Capsule.dr, 40 MG PO DAILY, (Reported) Ondansetron 4 Mg Tab.rapdis, 4 MG SL Q4H PRN for NAUSEA/VOMITING-1ST LINE Prescribed by: SWAPNIL WILSON on 01/13/18 1423 Promethazine HCl 25 Mg Tablet, 25 MG PO Q6H PRN for NAUSEA/VOMITING-2ND LINE, ( Reported) Sitagliptin Phosphate 100 Mg Tablet, 100 MG PO DAILY, (Reported) Sucralfate 1 Gm Tablet, 1 GM PO QID, (Reported) Tamsulosin HCl 0.4 Mg Cap, 0.4 MG PO HS, (Reported) Patient Home Medication List Home Medication List Reviewed: Yes Review of Systems Review of Systems Constitutional: see HPI; No chills, No fever EENTM: No Symptoms Reported Respiratory: Denies Shortness of Air, Denies Wheezing Cardiovascular: Chest Pain; Denies Edema; Irregular Heart Rate Gastrointestinal: Denies Abdominal Pain, Denies Nausea, Denies Vomiting Genitourinary: No Symptoms Reported All Other Systems Reviewed Negative Unless Noted: Yes Past Aotszzy-Jghcri-Hscgij Hx Past Med/Social Hx: Reviewed Nursing Past Med/Soc Hx Patient Social History Alcohol Use: Denies Use Recreational Drug Use: No Type Used: Cigarettes 2nd Hand Smoke Exposure: Yes Recent Foreign Travel: No Contact w/Someone Who Travel: No Recent Infectious Disease Expo: No Recent Hopitalizations: No Immunizations Up To Date Date of Influenza Vaccine: Sep 09, 2017 Seasonal Allergies Seasonal Allergies: No Past Medical History Surgeries: Yes (UNKNOWN EXCEPT FOR EVIDENCE OF PACEMAKER) Pacemaker Respiratory: Yes COPD Currently Using CPAP: No Currently Using BIPAP: No Cardiac: Yes Coronary Artery Disease, High Cholesterol, Hypertension Neurological: Yes Dementia, Stroke, TIA Genitourinary: Yes Benign Prostatic Hyperpl Gastrointestinal: Yes Gastrointestinal Bleed, Hiatal Hernia Musculoskeletal: Yes (CHRONIC PAIN; GENERALIZED WEAKNESS; UNSTEADY GAIT) Chronic Back Pain Endocrine: Yes Diabetes, Non-Insulin dep HEENT: Yes Loss of Vision: Right Hearing Impairment: Deaf Cancer: No Psychosocial: Yes (SUICIDAL IDEATIONS) Anxiety, Depression Integumentary: Yes (bilateral ears) Recent Skin Changes Blood Disorders: No Adverse Reaction/Blood Tranf: No Family Medical History Reviewed Nursing Family Hx Unknown family medical history Physical Exam Vital Signs Vital Signs - First Documented 05/29/18 11:05 Temp 97.5 Pulse 73 Resp 18 B/P (MAP) 138/75 (96) Pulse Ox 96 Capillary Refill : Less Than 3 Seconds Height, Weight, BMI Height: 6'1.00" Weight: 217lbs. 2.0oz. 98.933655tc; 30.3 BMI Method:Stated General Appearance: No Apparent Distress, WD/WN HEENT: PERRL/EOMI, Pharynx Normal Neck: Non Tender, Supple Respiratory: Lungs Clear, Normal Breath Sounds Cardiovascular: Regular Rate, Rhythm, No Murmur Extremity: Normal Range of Motion, Non Tender Neurologic/Psychiatric: Alert, Oriented x3 Skin: Normal Color, Warm/Dry Progress/Results/Core Measures Results/Orders Lab Results Laboratory Tests Test 05/29/18 11:20 Range/Units White Blood Count 9.5 4.3-11.0 10^3/uL Red Blood Count 4.31 L 4.35-5.85 10^6/uL Hemoglobin 13.8 13.3-17.7 G/DL Hematocrit 41 40-54 % Mean Corpuscular Volume 95 80-99 FL Mean Corpuscular Hemoglobin 32 25-34 PG Mean Corpuscular Hemoglobin Concent 34 32-36 G/DL Red Cell Distribution Width 14.1 10.0-14.5 % Platelet Count 197 130-400 10^3/uL Mean Platelet Volume 9.2 7.4-10.4 FL Neutrophils (%) (Auto) 60 42-75 % Lymphocytes (%) (Auto) 26 12-44 % Monocytes (%) (Auto) 11 0-12 % Eosinophils (%) (Auto) 3 0-10 % Basophils (%) (Auto) 1 0-10 % Neutrophils # (Auto) 5.7 1.8-7.8 X 10^3 Lymphocytes # (Auto) 2.4 1.0-4.0 X 10^3 Monocytes # (Auto) 1.1 H 0.0-1.0 X 10^3 Eosinophils # (Auto) 0.3 0.0-0.3 10^3/uL Basophils # (Auto) 0.1 0.0-0.1 10^3/uL Prothrombin Time 12.7 12.2-14.7 SEC INR Comment 1.0 0.8-1.4 Activated Partial Thromboplast Time 24 24-35 SEC Sodium Level 137 135-145 MMOL/L Potassium Level 4.1 3.6-5.0 MMOL/L Chloride Level 104 98-107 MMOL/L Carbon Dioxide Level 25 21-32 MMOL/L Anion Gap 8 5-14 MMOL/L Blood Urea Nitrogen 10 7-18 MG/DL Creatinine 0.82 0.60-1.30 MG/DL Estimat Glomerular Filtration Rate > 60 BUN/Creatinine Ratio 12 Glucose Level 64 L 70-105 MG/DL Calcium Level 9.8 8.5-10.1 MG/DL Corrected Calcium 9.6 8.5-10.1 MG/DL Magnesium Level 2.1 1.8-2.4 MG/DL Total Bilirubin 0.4 0.1-1.0 MG/DL Aspartate Amino Transf (AST/SGOT) 24 5-34 U/L Alanine Aminotransferase (ALT/SGPT) 30 0-55 U/L Alkaline Phosphatase 89 40-136 U/L Myoglobin 41.7 10.0-92.0 NG/ML Troponin I < 0.30 <0.30 NG/ML Total Protein 7.5 6.4-8.2 GM/DL Albumin 4.3 3.2-4.5 GM/DL My Orders Orders - STEFFEN DAVIDSON MD Aspirin Chewable Tablet (Baby Aspirin Ch (05/29/18 11:10) Vital Signs/I&O 05/29/18 11:05 Temp 97.5 Pulse 73 Resp 18 B/P (MAP) 138/75 (96) Pulse Ox 96 Blood Pressure Mean: 96 Progress Progress Note : Progress Note Seen and evaluated. IV, labs, EKG and chest x-ray ordered. ASA 324 mg by mouth given. Monitor patient. 1237: No acute findings. Remains pain free. Discharge back to long-term with return precautions. Patient and staff verbalize understanding instructions and agreement with plan. Initial ECG Impression Date: May 29, 2018 Initial ECG Impression Time: 11:08 Initial ECG Rate: 71 Initial ECG Rhythm: Normal Sinus Initial ECG Comparisson: Changed Comment Intermittently paced complexes. Change from previous which was dual paced and more persistent but heart rate was slower. No evidence of ST elevation NC. Leftward axis. Interpreted by me. Diagnostic Imaging Diagonstic Imaging: Xray Plain Films/CT/US/NM/MRI: chest Comments VIA [facility], [facility]. 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 Patient complains of chest pain started last night. EXAM: Portable chest x-ray upright view. COMPARISONS: Chest x-ray dated 10/28/2017. FINDINGS: Lungs/pleura: Stable increased lung markings in both lung bases (right side more than the left), likely representing atelectasis or scarring. There is no interval lung infiltrate. There is no pneumothorax. There is no pleural effusion. Mediastinum: Small hiatal hernia is seen overlying the lower mediastinum. Pulmonary vasculature: Unremarkable. Heart: Heart size within normal limits. Cardiac pacemaker again seen overlying left chest with two leads projecting over the heart. Bones/extrathoracic soft tissue: There are degenerative spurs involving the thoracic spine. Postop changes with bone anchors seen overlying the proximal right humerus. IMPRESSION: 1: There is no radiographic evidence of acute cardiopulmonary process. 2: Stable mild bibasilar atelectasis or scarring. 3: Small hiatal hernia is seen. Dictated on workstation # [id number] Dict: 05/29/18 1205 Trans: 05/29/18 1209 [facility] [id number] Interpreted by: RADHA BROWN MD Electronically signed by: Departure Impression Primary Impression: Chest pain Qualified Codes: R07.9 - Chest pain, unspecified Disposition: 01 HOME, SELF-CARE Condition: Stable Departure-Patient Inst. Decision time for Depature: 12:38 Referrals: DEANA ALFONSO DO (PCP/Family) Primary Care Physician Patient Instructions: Chest Pain (DC) Add. Discharge Instructions: All discharge instructions reviewed with patient and/or family. Voiced understanding. Follow-up with your DrHoward in a few days for recheck. Return for worse pain, fever , vomiting, weakness, breathing problems or other concerns as needed. Continue home medications as previously prescribed. STEFFEN DAVIDSON MD May 29, 2018 11:52
[2018-05-29 11:58] LABS: MYOGLOBIN SERUM 41.7 NG/ML (10.0-92.0)
--- NOTE | 2018-05-29 12:10 | Diagnostic Imaging Report ---
CLINICAL INDICATION: Patient arrived in wheelchair. Patient complains of chest pain started last night. EXAM: Portable chest x-ray upright view. COMPARISONS: Chest x-ray dated 10/28/2017. FINDINGS: Lungs/pleura: Stable increased lung markings in both lung bases (right side more than the left), likely representing atelectasis or scarring. There is no interval lung infiltrate. There is no pneumothorax. There is no pleural effusion. Mediastinum: Small hiatal hernia is seen overlying the lower mediastinum. Pulmonary vasculature: Unremarkable. Heart: Heart size within normal limits. Cardiac pacemaker again seen overlying left chest with two leads projecting over the heart. Bones/extrathoracic soft tissue: There are degenerative spurs involving the thoracic spine. Postop changes with bone anchors seen overlying the proximal right humerus. IMPRESSION: 1: There is no radiographic evidence of acute cardiopulmonary process. 2: Stable mild bibasilar atelectasis or scarring. 3: Small hiatal hernia is seen. Dictated by: Dictated on workstation # [id number]
[2018-05-29 12:51] VITALS: BP 125/72
== END 2018-05-29 12:51 | disposition home or self-care (01) ==
LOC: EDUNIT# 10:56 → ER 10:57
DX: R07.89 Other chest pain (principal); J44.9 Chronic obstructive pulmonary disease, unspecified; I25.10 Atherosclerotic heart disease of native coronary artery without angina pectoris; E78.00 Pure hypercholesterolemia, unspecified; I10 Essential (primary) hypertension; E11.9 Type 2 diabetes mellitus without complications; F41.9 Anxiety disorder, unspecified; F31.9 Bipolar disorder, unspecified; Z87.19 Personal history of other diseases of the digestive system; Z88.0 Allergy status to penicillin; Z95.0 Presence of cardiac pacemaker; Z79.84 Long term (current) use of oral hypoglycemic drugs; Z77.22 Contact with and (suspected) exposure to environmental tobacco smoke (acute) (chronic)
CPT/HCPCS: 36415; 71045; 80053; 83735; 83874; 84484; 85025; 85610; 85730; 93005; 93041

== ENCOUNTER → 2019-03-19 | Outpatient (CLI) | payer MEDICARE, MEDICAID ==
[~2019-03-19] MED LIST changes: +CATHETER FLUSH 10 ML SYR IV PRN; +GABA800T10 PO; -GABA800T2 PO; +HOLD METFORMIN - RECEIVED CONTRAST 20 ML VIAL IV SCH; +IOHEXOL 350 MG/ML 100 ML (OMNIPAQUE 350) VIAL IV ONE
[2019-03-19 12:16] LABS: BUN/CREATININE RATIO 11; CREATININE SERUM 0.87 MG/DL (0.60-1.30); GFR ESTIMATED > 60
--- NOTE | 2019-03-19 13:53 | Diagnostic Imaging Report ---
PROCEDURE: CT abdomen and pelvis with contrast. TECHNIQUE: Multiple contiguous axial images were obtained through the abdomen and pelvis after administration of intravenous contrast. Auto Exposure Controls were utilized during the CT exam to meet ALARA standards for radiation dose reduction. INDICATION: Abdominal pain. Patient has history of aortic aneurysm. COMPARISON: Correlation is made with prior CT from 03/11/2018. FINDINGS: There are small bilateral pleural effusions, slightly larger on the right compared to the left. These are new since prior CT. Patient has a large hiatal hernia present. There is some dependent atelectasis in both lower lobes. A low-density lesion in right lobe of the liver appears to be stable. No additional liver lesions are identified. The gallbladder is surgically absent. No biliary ductal dilatation is seen. The pancreas and spleen are unremarkable. No adrenal mass is identified. Kidneys are unremarkable. Focal area of dilatation of the distal abdominal aorta near the bifurcation is similar to prior exam. No central, retroperitoneal, or mesenteric lymphadenopathy is seen. Small and large bowel loops are normal in caliber. There is no obstruction. There is no ascites. Bladder and prostate are unremarkable. Bony structures are nonacute. IMPRESSION: 1. Development of small bilateral pleural effusions, right greater. 2. Large hiatal hernia. 3. Stable low-density right lobe of liver lesion. 4. Stable mild focal dilatation of the distal abdominal aorta. 5. No acute features detected. Dictated by: Dictated on workstation # [id number]
== END ==
LOC: RAD 11:36
PROVIDERS: ATTEND Family Medicine
DX: I77.811 Abdominal aortic ectasia (principal); K44.9 Diaphragmatic hernia without obstruction or gangrene; K76.9 Liver disease, unspecified; J90 Pleural effusion, not elsewhere classified; Z90.49 Acquired absence of other specified parts of digestive tract
CPT/HCPCS: 36415; 74177; 82565; 84520

== ENCOUNTER 2019-03-22 14:59 | Inpatient (IN) | payer MEDICARE, MEDICAID ==
[~2019-03-22] VITALS: Ht 185.4 cm; Wt 102.7 kg
[2019-03-22] VITALS (7 sets, daily range): BP systolic 123–180; BP diastolic 68–102
[~2019-03-22 14:59] MED LIST changes: -CATHETER FLUSH 10 ML SYR IV PRN; -HOLD METFORMIN - RECEIVED CONTRAST 20 ML VIAL IV SCH; -IOHEXOL 350 MG/ML 100 ML (OMNIPAQUE 350) VIAL IV ONE
--- NOTE | 2019-03-22 15:15 | NUR ---
pt here by self. pt alert gcs 14 -15 neg 1 for some confusion. pt c/o abd pain and n/v/d. pt initiall said no abd pain now then changed to " my stomach is really sore". pt relates he has not ate or drank x 24 hrs. pt denies nausea now and relates vomited x 2-3 today. also relates diarrhea x 1 today. pt denies chest pain but c/o dyspnea. resp shallow nonlbored to shallow slightly labored. abd soft and distended tender to palpation allquads except llq. neg pulsating massess noted. lungs slight insp and exp wheezes or rhonchi bilaterally ? with forced resp. none audible. tele applied shows sr 70. done alexandru pt 1522.
[2019-03-22] MEDS ORDERED: NS IV 1000 ML 1,000 ML IV ONE (15:31)
[2019-03-22] MEDS ORDERED: fentaNYL INJECTION 100 MCG/2 ML AMP IVP STA (15:31)
[2019-03-22] MEDS ORDERED: ONDANSETRON 4 MG/2 ML (SDV) Z0FRAN IVP ONE (15:45)
--- NOTE | 2019-03-22 15:51 | ED Abdominal Pain ---
General Chief Complaint: Abdominal/GI Problems Stated Complaint: VOMITING/STOMACH PAIN Nursing Triage Note: abd pain and n/v/d Sepsis Screen: No Definite Risk Source of Information: Patient, Caregiver ([facility] staff) Exam Limitations: Other (vascular dementia) History of Present Illness Date Seen by Provider: Mar 22, 2019 Time Seen by Provider: 15:45 Initial Comments 79-year-old male patient presents to the emergency department with complaints of epigastric abdominal pain, nausea, vomiting, and diarrhea. detention staff is not present with the patient. [facility] in [facility] waiting [facility] and left the facility. [facility]. [facility] staff reports patient has had intermittent epigastric pain for approx 3-[address] abd/pelvis obtained on the . Yesterday patient reportedly didn't feel well and felt more short of breath usual. Dr. Alfonso had ordered O2, nebulizer treatments with improvement in symptoms. Staff reports this a.m. patient "felt sick" and was given Zofran, Mylanta, and times. Staff reports patient did have a normal bowel movement earlier today. They state patient has had not had anything to eat since yesterday at noon. He did have 1 cup of coffee this AM, but immediately vomited. Patient denies chest pain or SOA at this time, but states the pain is worse with taking a deep breath. Severity/Quality: Aching, Sharp Location: Epigastric Radiation: No Radiation Activities at Onset: None Modifying Factors: Worsens With Breathing, Worsens With Eating, Worsens With Palpation Allergies and Home Medications Allergies Coded Allergies: amoxicillin (Verified Allergy, Unknown, 10/09/17) Home Medications Acetaminophen 500 Mg Tablet, 1,000 MG PO Q4H PRN for MILD PAIN/ FEVER OVER 100, (Reported) Atorvastatin Calcium 10 Mg Tablet, 10 MG PO HS, (Reported) Citalopram Hydrobromide 20 Mg Tablet, 20 MG PO DAILY, (Reported) Clonazepam 0.5 Mg Tablet, 0.5 MG PO TID, (Reported) Cyanocobalamin (Vitamin B-12) 1,000 Mcg Tab.subl, 1,000 MCG SL DAILY, (Reported) Gabapentin 800 Mg Tablet, 800 MG PO TID, (Reported) Glimepiride 1 Mg Tab, 1 MG PO DAILY, (Reported) Melatonin 3 Mg Tablet, 3 MG PO HS, (Reported) Melatonin 3 Mg Tablet, 9 MG PO HS PRN for INSOMNIA, (Reported) Memantine HCl 5 Mg Tablet, 5 MG PO DAILY, (Reported) Omeprazole 40 Mg Capsule.dr, 40 MG PO DAILY, (Reported) Ondansetron 4 Mg Tab.rapdis, 4 MG SL Q4H PRN for NAUSEA/VOMITING-1ST LINE Prescribed by: SWAPNIL WILSON on 01/13/18 1423 Promethazine HCl 25 Mg Tablet, 25 MG PO Q6H PRN for NAUSEA/VOMITING-2ND LINE, (Reported) Sitagliptin Phosphate 100 Mg Tablet, 100 MG PO DAILY, (Reported) Sucralfate 1 Gm Tablet, 1 GM PO QID, (Reported) Tamsulosin HCl 0.4 Mg Cap, 0.4 MG PO HS, (Reported) Patient Home Medication List Home Medication List Reviewed: Yes Review of Systems Review of Systems Constitutional: No chills, No diaphoresis, No dizziness, No fever, No weakness EENTM: No Symptoms Reported Respiratory: See HPI, Cough (chronic cough), Shortness of Air (chronic SOA, but worse yesterday); Denies Stridor, Denies Wheezing Cardiovascular: Denies Chest Pain; Edema (chronic pedal edema); Denies Lightheadedness, Denies Palpitations, Denies Syncope Gastrointestinal: See HPI; Denies Abdomen Distended; Abdominal Pain; Denies Blood Streaked Stools, Denies Constipated, Denies Diarrhea; Nausea, Poor Appetite, Poor Fluid Intake; Denies Rectal Bleeding; Vomiting Genitourinary: Denies Burning, Denies Frequency, Denies Flank Pain, Denies Hematuria Musculoskeletal: No back pain Skin: no symptoms reported Psychiatric/Neurological: No Symptoms Reported, Pre-Existing Deficit (confusion secondary to vascular dementia.) All Other Systems Reviewed Negative Unless Noted: Yes (Negative excepted noted.) Past Yinguld-Zsdxpc-Bfhmjf Hx Past Med/Social Hx: Reviewed Nursing Past Med/Soc Hx Patient Social History Alcohol Use: Denies Use Recreational Drug Use: No Smoking Status: Never a Smoker Type Used: Cigarettes 2nd Hand Smoke Exposure: Yes Recent Foreign Travel: No Contact w/Someone Who Travel: No Recent Infectious Disease Expo: No Recent Hopitalizations: No Physical Abuse: No Sexual Abuse: No Immunizations Up To Date Date of Influenza Vaccine: Sep 09, 2017 Seasonal Allergies Seasonal Allergies: No Past Medical History Surgeries: Yes (UNKNOWN EXCEPT FOR EVIDENCE OF PACEMAKER) Pacemaker Respiratory: Yes COPD Currently Using CPAP: No Currently Using BIPAP: No Cardiac: Yes Coronary Artery Disease, High Cholesterol, Hypertension Neurological: Yes Dementia, Stroke, TIA Genitourinary: Yes Benign Prostatic Hyperpl Gastrointestinal: Yes Gastrointestinal Bleed, Hiatal Hernia (large hiatal hernia) Musculoskeletal: Yes (CHRONIC PAIN; GENERALIZED WEAKNESS; UNSTEADY GAIT) Chronic Back Pain Endocrine: Yes Diabetes, Non-Insulin dep HEENT: Yes Loss of Vision: Right Hearing Impairment: Deaf Cancer: No Psychosocial: Yes (SUICIDAL IDEATIONS) Anxiety, Depression Integumentary: Yes (bilateral ears) Recent Skin Changes Blood Disorders: No Adverse Reaction/Blood Tranf: No Family Medical History Reviewed Nursing Family Hx Unknown family medical history No Pertinent Family Hx Physical Exam Vital Signs Vital Signs - First Documented 03/22/19 15:15 Temp 98.7 Pulse 76 Resp 24 B/P (MAP) 142/105 (117) Pulse Ox 97 O2 Delivery Room Air Capillary Refill : Less Than 3 Seconds Height/Weight/BMI Height: 6'1.00" Weight: 240lbs. 2.0oz. 108.851918vu; 30.3 BMI Method:Stated General Appearance: WD/WN, no apparent distress HEENT: PERRL/EOMI, pharynx normal Neck: supple, normal inspection Respiratory: no respiratory distress, no accessory muscle use, decreased breath sounds, crackles Cardiovascular: regular rate, rhythm, no gallop, no JVD, systolic murmur, other (2+ pedal edema bilaterally) Gastrointestinal: normal bowel sounds, soft, no organomegaly; No distended; guarding (mild epigastric guarding); No rebound; tenderness (epigastric tenderness) Extremities: no calf tenderness, normal capillary refill, pedal edema (2+ pedal edema bilat) Back: normal inspection, no CVA tenderness Neurologic/Psychiatric: alert, normal mood/affect, oriented x 3 Skin: normal color, warm/dry Progress/Results/Core Measures Results/Orders Lab Results Laboratory Tests Test 03/22/19 15:41 03/22/19 15:47 03/22/19 16:08 Range/Units White Blood Count 7.1 4.3-11.0 10^3/uL Red Blood Count 4.15 L 4.35-5.85 10^6/uL Hemoglobin 12.8 L 13.3-17.7 G/DL Hematocrit 38 L 40-54 % Mean Corpuscular Volume 92 80-99 FL Mean Corpuscular Hemoglobin 31 25-34 PG Mean Corpuscular Hemoglobin Concent 33 32-36 G/DL Red Cell Distribution Width 13.9 10.0-14.5 % Platelet Count 210 130-400 10^3/uL Mean Platelet Volume 9.0 7.4-10.4 FL Neutrophils (%) (Auto) 70 42-75 % Lymphocytes (%) (Auto) 20 12-44 % Monocytes (%) (Auto) 8 0-12 % Eosinophils (%) (Auto) 2 0-10 % Basophils (%) (Auto) 1 0-10 % Neutrophils # (Auto) 5.0 1.8-7.8 X 10^3 Lymphocytes # (Auto) 1.4 1.0-4.0 X 10^3 Monocytes # (Auto) 0.6 0.0-1.0 X 10^3 Eosinophils # (Auto) 0.2 0.0-0.3 10^3/uL Basophils # (Auto) 0.0 0.0-0.1 10^3/uL Sodium Level 139 135-145 MMOL/L Potassium Level 3.6 3.6-5.0 MMOL/L Chloride Level 102 98-107 MMOL/L Carbon Dioxide Level 26 21-32 MMOL/L Anion Gap 11 5-14 MMOL/L Blood Urea Nitrogen 7 7-18 MG/DL Creatinine 0.81 0.60-1.30 MG/DL Estimat Glomerular Filtration Rate > 60 BUN/Creatinine Ratio 9 Glucose Level 140 H 70-105 MG/DL Calcium Level 9.6 8.5-10.1 MG/DL Corrected Calcium 9.4 8.5-10.1 MG/DL Total Bilirubin 0.7 0.1-1.0 MG/DL Aspartate Amino Transf (AST/SGOT) 16 5-34 U/L Alanine Aminotransferase (ALT/SGPT) 20 0-55 U/L Alkaline Phosphatase 97 40-136 U/L Troponin I 0.048 H <0.028 NG/ML Total Protein 6.8 6.4-8.2 GM/DL Albumin 4.2 3.2-4.5 GM/DL Lipase 14 8-78 U/L Prothrombin Time 13.2 12.2-14.7 SEC INR Comment 1.0 0.8-1.4 Activated Partial Thromboplast Time 25 24-35 SEC Magnesium Level 1.5 L 1.8-2.4 MG/DL B-Type Natriuretic Peptide 1023.3 H <100.0 PG/ML Urine Color YELLOW Urine Clarity CLEAR Urine pH 7 5-9 Urine Specific [place] 1.010 L 1.016-1.022 Urine Protein NEGATIVE NEGATIVE Urine Glucose (UA) NEGATIVE NEGATIVE Urine Ketones 2+ H NEGATIVE Urine Nitrite NEGATIVE NEGATIVE Urine Bilirubin NEGATIVE NEGATIVE Urine Urobilinogen NORMAL NORMAL MG/DL Urine Leukocyte Esterase NEGATIVE NEGATIVE Urine RBC (Auto) NEGATIVE NEGATIVE Urine RBC NONE /HPF Urine WBC RARE /HPF Urine Squamous Epithelial Cells NONE /HPF Urine Crystals NONE /LPF Urine Bacteria NEGATIVE /HPF Urine Casts NONE /LPF Urine Mucus NEGATIVE /LPF Urine Culture Indicated NO My Orders Orders - DANIEL PULLIAM Ed Iv/Invasive Line Start (03/22/19 15:31) Cbc With Automated Diff (03/22/19 15:31) Comprehensive Metabolic Panel (03/22/19 15:31) Lipase (03/22/19 15:31) Ua Culture If Indicated (03/22/19 15:31) Ondansetron Injection (Zofran Injectio (03/22/19 15:45) Fentanyl Injection (Sublimaze Injection (03/22/19 15:31) Ns Iv 1000 Ml (Sodium Chloride 0.9%) (03/22/19 15:31) Ct Chest/Abdomen/Pelvis W (03/22/19 15:47) Iohexol Injection (Omnipaque 350 Mg/Ml 1 (03/22/19 16:00) Received Contrast (Hold Metformin- Contr (03/22/19 16:00) Ns (Ivpb) (Sodium Chloride 0.9% Ivpb Bag (03/22/19 16:00) Ekg Tracing (03/22/19 16:14) O2 (03/22/19 16:14) Monitor-Rhythm Ecg Trace Only (03/22/19 16:14) Troponin I (03/22/19 16:14) BNP (03/22/19 17:10) Magnesium (03/22/19 17:10) Protime With Inr (03/22/19 17:10) Partial Thromboplastin Time (6/30/19 17:10) Medications Given in ED Current Medications Medications Dose Ordered Sig/Jose Maria Route Start Time Stop Time Status Last Admin Dose Admin Iohexol 100 ml ONCE ONCE IV 03/22/19 16:00 03/22/19 16:01 DC 03/22/19 16:33 100 ML Ondansetron HCl 4 mg ONCE ONCE IVP 03/22/19 15:45 03/22/19 15:46 DC 03/22/19 15:48 4 MG Sodium Chloride 100 ml ONCE ONCE IV 03/22/19 16:00 03/22/19 16:01 DC 03/22/19 16:33 80 ML Sodium Chloride 1,000 ml @ 0 mls/hr Q0M ONCE IV 03/22/19 15:31 03/22/19 15:33 DC 03/22/19 15:52 1,548 MLS/HR Vital Signs/I&O 03/22/19 15:15 Temp 98.7 Pulse 76 Resp 24 B/P (MAP) 142/105 (117) Pulse Ox 97 O2 Delivery Room Air Blood Pressure Mean: 117 Diagnostic Imaging Diagonstic Imaging: CT Plain Films/CT/US/NM/MRI: chest, abdomen, pelvis Reviewed: Reviewed by Me (radiology report reviewed by me) Departure Communication (Admissions) Time/Spoke to Admitting Phy: 17:45 Dr. Little graciously accepts patient to her medical service for Dr. Alfonso. Time/Spoke to Consulting Phy: 17:55 Dr. Pak notified of consult. Impression Primary Impression: Elevated troponin Additional Impressions: Pulmonary arterial hypertension Hypomagnesemia Bilateral pleural effusion Volume depletion Nausea and vomiting Hiatal hernia COPD (chronic obstructive pulmonary disease) Diabetes mellitus, type II Disposition: 09 ADMITTED INPATIENT Condition: Stable Admissions Decision to Admit Reason: Admit from ER (General) Decision to Admit/Date: Mar 22, 2019 Time/Decision to Admit Time: 17:45 Departure-Patient Inst. Referrals: DEANA ALFONSO DO (PCP/Family) Primary Care Physician DANIEL PULLIAM Mar 22, 2019 15:51
[2019-03-22 15:53] LABS: BASOPHILS % (AUTO) 1 % (0-10); EOSINOPHILS # (AUTO) 0.2 10^3/uL (0.0-0.3); EOSINOPHILS % (AUTO) 2 % (0-10); HEMATOCRIT 38 % (40-54); HEMOGLOBIN 12.8 G/DL (13.3-17.7); LYMPHOCYTES # (AUTO) 1.4 X 10^3 (1.0-4.0); LYMPHOCYTES % (AUTO) 20 % (12-44); MEAN CORPUSCULAR HEMOGLOBIN 31 PG (25-34); MEAN CORPUSCULAR HGB CONC 33 G/DL (32-36); MEAN CORPUSCULAR VOLUME 92 FL (80-99); MONOCYTES # (AUTO) 0.6 X 10^3 (0.0-1.0); MONOCYTES % (AUTO) 8 % (0-12); NEUTROPHILS % (AUTO) 70 % (42-75); PLATELET COUNT 210 10^3/uL (130-400); RED CELL DISTRIBUTION WIDTH 13.9 % (10.0-14.5); WHITE BLOOD COUNT 7.1 10^3/uL (4.3-11.0)
--- NOTE | 2019-03-22 15:54 | NUR ---
meds per another nurse juan manuel.
[2019-03-22] MEDS ORDERED: HOLD METFORMIN - RECEIVED CONTRAST 20 ML VIAL IV SCH (16:00)
[2019-03-22] MEDS ORDERED: NS 100 ML (IVPB) BAG IV ONE (16:00)
[2019-03-22] MEDS ORDERED: IOHEXOL 350 MG/ML 100 ML (OMNIPAQUE 350) VIAL IV ONE (16:00)
--- NOTE | 2019-03-22 16:07 | NUR ---
someone placed 02 on pt and pt trying to ua,
--- NOTE | 2019-03-22 16:12 | NUR ---
pt remains here by self. pt alert gcs 14 neg for occasional confusion though pt knows his name. pt denies abd pain., denies nausea and no v/d noted in er visit thus far. 200left in liter bolus. lungs ? pleural rub vs crackles. tele shows sr 79. ua tolab byme. resp remains shallow nonlabored to slightly labored. bp machine is 160/113 ausc hr 72 reg ausc resp 20 recheck temp 97.6 p ox 2/n/c is 96.
[2019-03-22 16:14] LABS: ALANINE AMINOTRANSFERASE 20 U/L (0-55); ALBUMIN 4.2 GM/DL (3.2-4.5); ALKALINE PHOSPHATASE 97 U/L (40-136); BILIRUBIN,TOTAL 0.7 MG/DL (0.1-1.0); BUN/CREATININE RATIO 9; CALCIUM 9.6 MG/DL (8.5-10.1); CARBON DIOXIDE 26 MMOL/L (21-32); CHLORIDE 102 MMOL/L (98-107); CREATININE SERUM 0.81 MG/DL (0.60-1.30); GFR ESTIMATED > 60; GLUCOSE 140 MG/DL (70-105); LIPASE 14 U/L (8-78); POTASSIUM 3.6 MMOL/L (3.6-5.0); SODIUM 139 MMOL/L (135-145); TOTAL PROTEIN 6.8 GM/DL (6.4-8.2)
[2019-03-22 16:17] LABS: BILIRUBIN,URINE NEGATIVE (NEGATIVE); CLARITY,URINE CLEAR; COLOR,URINE YELLOW; GLUCOSE, URINE (UA) NEGATIVE (NEGATIVE); KETONES,URINE 2+ (NEGATIVE); LEUKOCYTE ESTERASE ,URINE NEGATIVE (NEGATIVE); NITRITE,URINE NEGATIVE (NEGATIVE); PH,URINE 7 (5-9); PROTEIN,URINE NEGATIVE (NEGATIVE); UROBILINOGEN,URINE NORMAL (NORMAL)
[2019-03-22 16:23] LABS: BACTERIA,URINE NEGATIVE /HPF; WBC,URINE RARE /HPF
--- NOTE | 2019-03-22 16:53 | NUR ---
pt appeard to have infante when i put pt back in bed.
--- NOTE | 2019-03-22 16:53 | NUR ---
pt back from ct. pt sitting at edge of bed trying to ua.pt confused. spilled urinal in bed then another time on his underware. tried to get pt upt to commode he said he wanted to sit and pee. i gave up on that. pt almost fell. pt back in bed rales up x 2. someone doing ekg now. literbolus completed.
--- NOTE | 2019-03-22 16:58 | Diagnostic Imaging Report ---
PROCEDURE: CT chest, abdomen, and pelvis with contrast. TECHNIQUE: Multiple contiguous axial images were obtained through the chest, abdomen, and pelvis after the administration of intravenous contrast. Auto Exposure Controls were utilized during the CT exam to meet ALARA standards for radiation dose reduction. INDICATION: Abdominal pain. Aortic aneurysm. COMPARISON: CT abdomen and pelvis with IV contrast from 03/19/2019. Chest radiographs from 10/28/2017. FINDINGS: Chest: Moderate right and small left pleural effusion. Diffuse centrilobular septal thickening. Compressive atelectasis. No endobronchial lesions. No pneumothorax. Cardiomegaly. No pericardial effusion. Normal-caliber thoracic aorta. Prominent central pulmonary arteries. No mediastinal, hilar, or axillary lymphadenopathy. Calcified bilateral hilar lymph nodes. Cardiac pacer. No acute osseous findings. Abdomen and pelvis: Stable simple cyst in the right hepatic lobe. Cholecystectomy. Small fat-containing midline abdominal hernia without suspicious inflammatory changes. The pancreas, spleen, adrenals, kidneys, collecting systems, and bladder are negative. Advanced atherosclerotic calcifications including a normal-caliber abdominal aorta. No free intraperitoneal air or fluid. No lymphadenopathy. No evidence of bowel obstruction. No evidence of appendicitis. Large esophageal hiatal hernia. L4 laminectomy. No acute osseous findings. IMPRESSION: 1. Moderate right and small left pleural effusion. Diffuse centrilobular septal thickening suggests a degree of fluid overload. 2. Prominent-caliber central pulmonary arteries would be compatible with pulmonary arterial hypertension. 3. No acute CT findings in the abdomen or pelvis. Chronic and incidental findings, as above. Dictated by: Dictated on workstation # [id number]
--- NOTE | 2019-03-22 17:14 | NUR ---
pt remains alert gcs 14 neg 1 confusion. pt appears to be getting more confused. pt raising his voice. pt denies abd pain. no n/v/d noted in er visit thus far. pt still c/o dyspnea . pt appears more infante. resp shallow slightly labored. pt keeps asking for urinal w/o going ua. emilianave gave urinal several times as well as other people. now someone doing commode for ua again with couple people helping. bp machine is 172/85 ausc hr 88 reg ausc resp 24. recheck temp 97.9 p ox 2/n/c is 95. tele shows sr 90 pvc. pt has 4 plus edema bilateral lower legs noted.
[2019-03-22 17:23] LABS: PROTHROMBIN TIME PATIENT 13.2 SEC (12.2-14.7)
--- NOTE | 2019-03-22 17:24 | NUR ---
pt urinated 400 ml.
--- NOTE | 2019-03-22 17:52 | NUR ---
i just called report to admit nurse wyatt. i will take pt to admit room as soon as i get admit orders processed thru the system.
--- NOTE | 2019-03-22 18:05 | NUR ---
i am taking pt to admit room now. just saw ekg wich shows paced rytym. no pacer spikes noted on the tele.
[2019-03-22] MEDS ORDERED: LIDOCAINE UROJET 2% GEL 10 ML PKG ONE (18:45)
[2019-03-22] MEDS ORDERED: NS IV 1000 ML 1,000 ML IV SCH (19:00)
[2019-03-22] MEDS: FUROSEMIDE 40 MG/4 ML INJ (LASIX) IV SCH (19:27)
[2019-03-22] MEDS: MAGNESIUM 1 GM/D5W 100 ML IVPB IV SCH ×2 (19:30→20:33)
[2019-03-22] MEDS ORDERED: RT-ALBUTEROL/IPRATROPIUM 3 ML (DUONEB) VIAL INH PRN (20:00)
[2019-03-22] MEDS: FAMOTIDINE 20MG/2ML IV (PEPCID) IV SCH (20:35)
[2019-03-22] MEDS: RT-ALBUTEROL/IPRATROPIUM 3 ML (DUONEB) VIAL INH SCH (22:05)
[2019-03-23] VITALS (10 sets, daily range): BP systolic 128–187; BP diastolic 66–103
[2019-03-23] MEDS: RT-ALBUTEROL/IPRATROPIUM 3 ML (DUONEB) VIAL INH SCH ×6 (02:35→22:48)
[2019-03-23 03:26] LABS: BASOPHILS # (AUTO) 0.1 10^3/uL (0.0-0.1); BASOPHILS % (AUTO) 1 % (0-10); EOSINOPHILS # (AUTO) 0.3 10^3/uL (0.0-0.3); EOSINOPHILS % (AUTO) 4 % (0-10); HEMATOCRIT 37 % (40-54); HEMOGLOBIN 12.1 G/DL (13.3-17.7); LYMPHOCYTES # (AUTO) 1.3 X 10^3 (1.0-4.0); LYMPHOCYTES % (AUTO) 20 % (12-44); MEAN CORPUSCULAR HEMOGLOBIN 31 PG (25-34); MEAN CORPUSCULAR HGB CONC 33 G/DL (32-36); MEAN CORPUSCULAR VOLUME 93 FL (80-99); MEAN PLATELET VOLUME 9.1 FL (7.4-10.4); MONOCYTES # (AUTO) 0.7 X 10^3 (0.0-1.0); MONOCYTES % (AUTO) 12 % (0-12); NEUTROPHILS # (AUTO) 3.9 X 10^3 (1.8-7.8); NEUTROPHILS % (AUTO) 63 % (42-75); PLATELET COUNT 188 10^3/uL (130-400); WHITE BLOOD COUNT 6.2 10^3/uL (4.3-11.0)
[2019-03-23 03:50] LABS: ALANINE AMINOTRANSFERASE 19 U/L (0-55); ALBUMIN 3.8 GM/DL (3.2-4.5); ALKALINE PHOSPHATASE 87 U/L (40-136); BILIRUBIN,TOTAL 0.8 MG/DL (0.1-1.0); BUN/CREATININE RATIO 8; CALCIUM 9.1 MG/DL (8.5-10.1); CARBON DIOXIDE 27 MMOL/L (21-32); CHLORIDE 102 MMOL/L (98-107); CREATININE SERUM 0.84 MG/DL (0.60-1.30); GFR ESTIMATED > 60; GLUCOSE 113 MG/DL (70-105); MAGNESIUM 2.1 MG/DL (1.8-2.4); POTASSIUM 3.3 MMOL/L (3.6-5.0); SODIUM 140 MMOL/L (135-145); TOTAL PROTEIN 6.5 GM/DL (6.4-8.2)
[2019-03-23] MEDS: ACETAMINOPHEN 325 MG TABLET PO PRN (04:36)
--- NOTE | 2019-03-23 06:01 | Diagnostic Imaging Report ---
Indication: Shortness of breath Portable chest 3:31 AM Heart size and pulmonary vascularity are both increased. There is a dual-chamber pacemaker. Lungs are clear. There are no effusions or pneumothoraces. Impression: Congestive heart failure Dictated by: Dictated on workstation # [id number]
--- NOTE | 2019-03-23 06:24 | Pulmonary Consultation ---
History of Present Illness History of Present Illness Date of Consultation 03/23/19 06:19 Time Seen by Provider: 06:19 Date of Admission History of Present Illness 79yo presented to ED via EMS from [facility] secondary to worsening epigastric pain, nausea, vomiting, and diarrhea over the last 3 days. He was found to have an elevated troponin, BNP, and bilateral pleural effusion. PT received lasix upon admission and was placed on Vapotherm. He denies any c/o CP, palpitations, syncope or near syncope. I am consulted for pulmonary/ICU management. Allergies and Home Medications Allergies Coded Allergies: amoxicillin (Verified Allergy, Unknown, 10/09/17) Home Medications Acetaminophen 500 Mg Tablet, 1,000 MG PO Q4H PRN for MILD PAIN/ FEVER OVER 100, (Reported) Atorvastatin Calcium 10 Mg Tablet, 10 MG PO HS, (Reported) Citalopram Hydrobromide 20 Mg Tablet, 20 MG PO DAILY, (Reported) Clonazepam 0.5 Mg Tablet, 0.5 MG PO TID, (Reported) Cyanocobalamin (Vitamin B-12) 1,000 Mcg Tab.subl, 1,000 MCG SL DAILY, (Reported) Gabapentin 800 Mg Tablet, 800 MG PO TID, (Reported) Glimepiride 1 Mg Tab, 1 MG PO DAILY, (Reported) Melatonin 3 Mg Tablet, 3 MG PO HS, (Reported) Melatonin 3 Mg Tablet, 9 MG PO HS PRN for INSOMNIA, (Reported) Memantine HCl 5 Mg Tablet, 5 MG PO DAILY, (Reported) Omeprazole 40 Mg Capsule.dr, 40 MG PO DAILY, (Reported) Ondansetron 4 Mg Tab.rapdis, 4 MG SL Q4H PRN for NAUSEA/VOMITING-1ST LINE Prescribed by: SWAPNIL WILSON on 01/13/18 1423 Promethazine HCl 25 Mg Tablet, 25 MG PO Q6H PRN for NAUSEA/VOMITING-2ND LINE, (Reported) Sitagliptin Phosphate 100 Mg Tablet, 100 MG PO DAILY, (Reported) Sucralfate 1 Gm Tablet, 1 GM PO QID, (Reported) Tamsulosin HCl 0.4 Mg Cap, 0.4 MG PO HS, (Reported) Past Hhflkfj-Rqwdgj-Cnybxo Hx Past Med/Social Hx: Reviewed Nursing Past Med/Soc Hx Patient Social History Alcohol Use: Denies Use Recreational Drug Use: No Smoking Status: Never a Smoker Type Used: Cigarettes 2nd Hand Smoke Exposure: Yes Recent Foreign Travel: No Contact w/Someone Who Travel: No Recent Infectious Disease Expo: No Recent Hopitalizations: No Physical Abuse: No Sexual Abuse: No Immunizations Up To Date Date of Influenza Vaccine: Sep 09, 2017 Seasonal Allergies Seasonal Allergies: No Past Medical History Surgeries: Yes (UNKNOWN EXCEPT FOR EVIDENCE OF PACEMAKER) Pacemaker Respiratory: Yes COPD Currently Using CPAP: No Currently Using BIPAP: No Cardiac: Yes Coronary Artery Disease, High Cholesterol, Hypertension Neurological: Yes Dementia, Stroke, TIA Genitourinary: Yes Benign Prostatic Hyperpl Gastrointestinal: Yes Gastrointestinal Bleed, Hiatal Hernia (large hiatal hernia) Musculoskeletal: Yes (CHRONIC PAIN; GENERALIZED WEAKNESS; UNSTEADY GAIT) Chronic Back Pain Endocrine: Yes Diabetes, Non-Insulin dep HEENT: Yes Loss of Vision: Right Hearing Impairment: Deaf Cancer: No Psychosocial: Yes (SUICIDAL IDEATIONS) Anxiety, Depression Integumentary: Yes (bilateral ears) Recent Skin Changes Blood Disorders: No Adverse Reaction/Blood Tranf: No Family Medical History Reviewed Nursing Family Hx Unknown family medical history No Pertinent Family Hx Review of Systems Time Seen by Provider: 10:16 Sepsis Event Evaluation Height, Weight, BMI Height: 6'1.00" Weight: 226lbs. 1.0oz. 102.398677es; 30.3 BMI Method:Stated Exam Exam Vital Signs Date Time Temp Pulse Resp B/P (MAP) Pulse Ox O2 Delivery O2 Flow Rate FiO2 03/23/19 06:05 89 11 96 Nasal Cannula 4.00 03/23/19 04:37 100 Vapotherm 30.00 10.00 03/23/19 04:00 72 11 135/79 (97) 90 Vapotherm 40.00 20.00 03/23/19 03:50 98.0 99 Vapotherm 40.00 20.00 03/23/19 03:45 99 Vapotherm 20.00 40 03/23/19 02:35 95 Vapotherm 20.00 40 03/23/19 01:40 99 Vapotherm 40.00 20.00 03/23/19 01:00 70 03/23/19 00:00 71 27 137/75 (95) 93 Vapotherm 50.00 30.00 03/22/19 23:36 88 Vapotherm 50.00 30.00 03/22/19 23:15 98.1 92 Vapotherm 40.00 20.00 03/22/19 23:10 100 Vapotherm 20.00 40 03/22/19 23:09 100 Vapotherm 40.00 20.00 03/22/19 22:05 97 Vapotherm 30.00 50 03/22/19 21:26 98 Vapotherm 50.00 30.00 03/22/19 21:12 93 Vapotherm 40.00 70 03/22/19 21:12 70 19 90 Vapotherm 70.00 40.00 03/22/19 21:00 93 Vapotherm 30.00 50 03/22/19 20:59 71 19 87 Nasal Cannula 4.00 03/22/19 20:22 93 Nasal Cannula 3.00 03/22/19 20:00 98.0 69 12 123/68 (86) 90 Nasal Cannula 3.00 03/22/19 20:00 Nasal Cannula 3.00 03/22/19 20:00 70 96 03/22/19 19:45 72 17 163/83 (109) 95 Nasal Cannula 2.00 03/22/19 19:30 84 11 172/102 (125) 92 Nasal Cannula 2.00 03/22/19 19:15 76 24 139/101 (114) 94 Nasal Cannula 2.00 03/22/19 19:12 80 03/22/19 19:00 70 31 159/83 (108) 95 Nasal Cannula 2.00 03/22/19 18:45 79 140/91 (107) 95 Nasal Cannula 2.00 03/22/19 18:34 70 03/22/19 18:30 92 180/101 (127) 94 Nasal Cannula 2.00 03/22/19 18:17 94 Nasal Cannula 2.00 03/22/19 17:56 Nasal Cannula 2.00 03/22/19 17:54 97.9 88 24 172/85 (114) 95 Nasal Cannula 2.00 03/22/19 15:15 98.7 76 24 142/105 (117) 97 Room Air I & O 03/23/19 07:00 Intake Total 1780 ml Output Total 3805 ml Balance -2025 ml Height & Weight Height: 6'1.00" Weight: 226lbs. 1.0oz. 102.088108xz; 30.3 BMI Method:Stated General Appearance: No Apparent Distress, WD/WN HEENT: PERRL/EOMI, Normal ENT Inspection Neck: Full Range of Motion, Supple Respiratory: Chest Non Tender, No Accessory Muscle Use, No Respiratory Distress, Decreased Breath Sounds Cardiovascular: Regular Rate, Rhythm, No Edema, No Gallop Capillary Refill: Less Than 3 Seconds Gastrointestinal: normal bowel sounds, soft, no organomegaly; No distended; guarding (mild epigastric guarding); No rebound; tenderness (epigastric tenderne ss) Neurologic/Psychiatric: Alert, Oriented x3 Skin: Normal Color, Warm/Dry Lymphatic: No Adenopathy Results Lab Laboratory Tests 03/22/19 15:41 03/23/19 03:10 Assessment/Plan Assessment/Plan Acute respiratory distress with hypoxia -Titrate oxygen as tolerated pulmonary edema with bilateral R> left pleural effusion -- probably secondary to CHF -Echo pending -Cardiology consulted -Lasix NSTEMI -Cardiology following Gastroenteritis - No abd pain -Improved continue to monitor To 4th floor when ok with cardiology SUSHILA STAFFORD DO Mar 23, 2019 06:24
[2019-03-23] MEDS: FUROSEMIDE 40 MG/4 ML INJ (LASIX) IV SCH (06:33)
[2019-03-23] MEDS ORDERED: KCL 20 MEQ TAB (K-DUR) PO NR (07:27)
[2019-03-23] MEDS: ONDANSETRON 4 MG/2 ML (SDV) Z0FRAN IV PRN ×2 (07:30→12:22)
[2019-03-23] MEDS: FAMOTIDINE 20MG/2ML IV (PEPCID) IV SCH ×2 (08:09→21:02)
--- NOTE | 2019-03-23 08:41 | Consultation-Cardiology ---
HPI-Cardiology Cardiology Consultation: Date of Consultation 03/23/19 Time Seen by a Provider: 08:20 Date of Admission 03-22-19 Attending Physician Verónica Little DO Admitting Physician Deana Alfonso DO Consulting Physician Ruthy Beverly MD HPI: Chief Complaint: Dyspnea Mr. Cueva is an 79 year old male admitted to ICU 12 from the ED. He resides at [facility]. He states he has had n/v for the last 3 days. He states he was constipated, but now has diarrhea. He denies any c/o CP, palpitations, syncope or near syncope. He reports he has SOB "sometimes" but r eports this is not new. He reports bilat LE swelling which is constant. He reports he sees Dr. Gamble in [place] for his heart and just saw him 4 months ago. He states if he needs anything done with his heart he wants to go to [place]. He currently denies any n/v. He is continuously asking for a cup of coffee. Review of Systems-Cardiology Review of Systems Constitutional: No chills, No fever, No malaise Eyes: No vision change Ears/Nose/Throat: No epistaxis, No recent hearing loss Respiratory: As described under HPI Cardiovascular: As described under HPI Gastrointestinal: As described under HPI Genitourinary: dysuria Musculoskeletal: joint pain Skin: No rash on exposed areas, No ulcerations on exposed areas Psychiatric/Neurological: anxiety; No seizure, No focal weakness, No syncope Hematologic: No bleeding abnormalities All Other Systems Reviewed Negative Unless Noted: Yes (Negative excepted noted.) [id number]-Wjphdl Hx Patient Social History Alcohol Use: Denies Use Recreational Drug Use: No Smoking Status: Never a Smoker Type Used: Cigarettes 2nd Hand Smoke Exposure: Yes Recent Foreign Travel: No Recent Infectious Disease Expo: No Immunizations Up To Date Date of Influenza Vaccine: Sep 09, 2017 Past Medical History PMH As described under Assessment. Family Medical History Family History: Unknown family medical history Allergies and Home Medications Allergies Coded Allergies: amoxicillin (Verified Allergy, Unknown, 10/09/17) Home Medications Acetaminophen 500 Mg Tablet, 1,000 MG PO Q4H PRN for PAIN-MILD OR TEMPATURE, (Reported) Albuterol Sulfate 2.5 Mg/3 Ml Vial.neb, 2.5 MG NEB Q6H PRN for SHORTNESS OF BREATH, (Reported) Albuterol Sulfate 2.5 Mg/3 Ml Vial.neb, 2.5 MG NEB QID, (Reported) Atorvastatin Calcium 10 Mg Tablet, 10 MG PO HS, (Reported) Bimatoprost 2.5 Ml Drops, 1 DROP OU HS, (Reported) Cyanocobalamin (Vitamin B-12) 1,000 Mcg Tab.subl, 1,000 MCG SL DAILY, (Reported) Diclofenac Sodium 100 Gm Gel..gram., 4 GM TD Q8H PRN for RIGHT KNEE PAIN, (Reported) Fluticasone Propionate 16 Gm [place].susp, 2 SPRAYS NS DAILY PRN for CONGESTION, (Reported) Gabapentin 600 Mg Tablet, 600 MG PO TID, (Reported) Melatonin 3 Mg Tablet, 3 MG PO HS, (Reported) Metformin HCl 500 Mg Tablet, 500 MG PO BID, (Reported) Mirtazapine 7.5 Mg Tablet, 7.5 MG PO HS, (Reported) Omeprazole 40 Mg Capsule.dr, 40 MG PO BID, (Reported) Ondansetron 4 Mg Tab.rapdis, 4 MG PO Q4H PRN for NAUSEA/VOMITING-1ST LINE, (Reported) Propylene Glycol/Peg 400 15 Ml Drops, 1 DROP OU BID, (Reported) Sitagliptin Phosphate 100 Mg Tablet, 100 MG PO DAILY, (Reported) Sotalol HCl 80 Mg Tablet, 80 MG PO BID, (Reported) HOLD FOR DBP<100 OR PULSE <60 Sucralfate 1 Gm Tablet, 1 GM PO QID, (Reported) Tamsulosin HCl 0.4 Mg Cap, 0.4 MG PO HS, (Reported) Physical Exam-Cardiology Physical Exam Vital Signs/I&O 03/23/19 03/23/19 03/24/19 03/24/19 23:19 23:34 01:00 03:01 Temp 97.1 Pulse 71 70 Resp 20 B/P (MAP) 128/66 (86) Pulse Ox 91 O2 Delivery Nasal Cannula Nasal Cannula Nasal Cannula O2 Flow Rate 2.00 2.00 2.00 03/24/19 03/24/19 03/24/19 03/24/19 03:58 04:01 07:00 07:17 Temp 97.1 Pulse 74 77 Resp 18 B/P (MAP) 108/58 (75) Pulse Ox 97 90 O2 Delivery Nasal Cannula Nasal Cannula Nasal Cannula O2 Flow Rate 2.00 2.00 2.00 03/24/19 03/24/19 07:31 10:37 Temp 97.1 Pulse 81 Resp 18 B/P (MAP) 118/67 (84) Pulse Ox 92 93 O2 Delivery Nasal Cannula Nasal Cannula O2 Flow Rate 2.00 2.00 03/24/19 00:00 Intake Total 360 ml Output Total 950 ml Balance -590 ml Capillary Refill : Less Than 3 Seconds Constitutional: AAO x 3, well-developed, well-nourished HEENT: PERRL, hearing is well preserved; No xanthelasmas are seen Neck: No carotid bruit; carotid pulses are 2 + bilaterally Respiratory: No accessory muscle use; chest expansion is symmetric, chest is bilaterally symmetric, lungs clear to auscultation Cardiovascular: regular rate-rhythm; No JVD; S1 and S2, systolic murmur Gastrointestinal: No tender; soft, round, audible bowel sounds (hyperactive) Rectal: deferred Genital/Rectal: other (indwelling urinary catheter to DD with clear, yellow urine) Extremities: no lower extremity edema bilateral Neurologic/Psychiatric: grossly intact Skin: No rash on exposed areas, No ulcerations on exposed areas Data Review Labs Laboratory Tests 03/23/19 12:26: Glucometer 136H 03/23/19 16:03: Glucometer 168H 03/23/19 18:24: Urine Color REDH, Urine Clarity BLOODYH, Urine pH 8, Urine Specific [place] 1.010L, Urine Protein 3+H, Urine Glucose (UA) NEGATIVE, Urine Ketones 2+H, Urine Nitrite NEGATIVE, Urine Bilirubin NEGATIVE, Urine Urobilinogen NORMAL, Urine Leukocyte Esterase 2+H, Urine RBC (Auto) 5+H, Urine RBC TNTCH, Urine WBC 5-10H, Urine Crystals NONE, Urine Bacteria FEWH, Urine Casts NONE, Urine Mucus NEGATIVE, Urine Culture Indicated YES 03/23/19 20:58: Glucometer 132H 03/24/19 05:24: Glucometer 118H 03/24/19 05:35: White Blood Count 6.5, Red Blood Count 4.21L, Hemoglobin 13.0L, Hematocrit 39L, Mean Corpuscular Volume 92, Mean Corpuscular Hemoglobin 31, Mean Corpuscular Hemoglobin Concent 34, Red Cell Distribution Width 13.9, Platelet Count 218, Mean Platelet Volume 9.0, Sodium Level 139, Potassium Level 3.4L, Chloride Level 100, Carbon Dioxide Level 28, Anion Gap 11, Blood Urea Nitrogen 9, Creatinine 1.02, Estimat Glomerular Filtration Rate > 60, BUN/Creatinine Ratio 9, Glucose Level 125H, Calcium Level 9.6, Corrected Calcium 9.5, Magnesium Level 1.9, Total Bilirubin 0.7, Aspartate Amino Transf (AST/SGOT) 20, Alanine Aminotransferase (ALT/SGPT) 20, Alkaline Phosphatase 88, B-Type Natriuretic Peptide 1104.5H, Total Protein 7.0, Albumin 4.1, Triglycerides Level 109, Cholesterol Level 154, LDL Cholesterol Direct 115, VLDL Cholesterol 22, HDL Cholesterol 30L, Thyroid Stimulating Hormone (TSH) 2.03 03/24/19 10:42: Glucometer 179H Radiology NAME: IZABELLA CUEVA [facility] REC#: [id number] PT STATUS: REG ER : 1940 PHYSICIAN: DANIEL PULLIAM ADMIT DATE: 03/22/19/ER Draft Date of Exam:03/22/19 CT CHEST/ABDOMEN/PELVIS W PROCEDURE: CT chest, abdomen, and pelvis with contrast. TECHNIQUE: Multiple contiguous axial images were obtained through the chest, abdomen, and pelvis after the administration of intravenous contrast. Auto Exposure Controls were utilized during the CT exam to meet ALARA standards for radiation dose reduction. INDICATION: Abdominal pain. Aortic aneurysm. COMPARISON: CT abdomen and pelvis with IV contrast from 03/19/2019. Chest radiographs from 10/28/2017. FINDINGS: Chest: Moderate right and small left pleural effusion. Diffuse centrilobular septal thickening. Compressive atelectasis. No endobronchial lesions. No pneumothorax. Cardiomegaly. No pericardial effusion. Normal-caliber thoracic aorta. Prominent central pulmonary arteries. No mediastinal, hilar, or axillary lymphadenopathy. Calcified bilateral hilar lymph nodes. Cardiac pacer. No acute osseous findings. Abdomen and pelvis: Stable simple cyst in the right hepatic lobe. Cholecystectomy. Small fat-containing midline abdominal hernia without suspicious inflammatory changes. The pancreas, spleen, adrenals, kidneys, collecting systems, and bladder are negative. Advanced atherosclerotic calcifications including a normal-caliber abdominal aorta. No free intraperitoneal air or fluid. No lymphadenopathy. No evidence of bowel obstruction. No evidence of appendicitis. Large esophageal hiatal hernia. L4 laminectomy. No acute osseous findings. IMPRESSION: 1. Moderate right and small left pleural effusion. Diffuse centrilobular septal thickening suggests a degree of fluid overload. 2. Prominent-caliber central pulmonary arteries suggests a degree of pulmonary arterial hypertension. 3. No acute CT findings in the abdomen or pelvis. Chronic and incidental findings, as above. Dictated on workstation # [id number] Dict: 03/22/19 1642 Trans: 03/22/19 1658 [id number] Interpreted by: CADEN ELDER MD Electronically signed by: NAME: IZABELLA CUEVA [facility] REC#: [id number] PT STATUS: ADM IN : 1940 PHYSICIAN: DEANA ALFONSO DO ADMIT DATE: 03/22/19/ICU Signed Date of Exam: 03/23/19 CHEST 1 VIEW, AP/PA ONLY Indication: Shortness of breath Portable chest 3:31 AM Heart size and pulmonary vascularity are both increased. There is a dual-chamber pacemaker. Lungs are clear. There are no effusions or pneumothoraces. Impression: Congestive heart failure Dictated by: Dictated on workstation # [id number] Dict: 03/23/19557 Trans: 03/23/19558 Interpreted by: STEFFEN PHELAN MD Electronically signed by: STEFFEN PHELAN MD 03/23/19558 ECG Impression ECG Comment AV Pacing A/P-Cardiology Assessment/Admission Diagnosis CHF Nausea/vomiting/diarrhea - management per medical services H/O PPM implanted by Dr. Jo of cardiology services in [place], [place] d/t symptomatic bradycardia per pt report with a pulse generator change out by Dr. Jo February 2011 - reports it is followed by Dr. 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 Gamble at [facility] Reports h/o AAA repair with graft placement by Dr. Bojorquez at [facility] in [place], [place] in the s or Paroxysmal a-fib which he reports was diagnosed 4 years ago. He states he refuses OAC of any kind other than ASA HTN HLP DM Type 2 GERD Hiatal hernia H/O traumatic brain injury from [place] Discussion and Recomendations Mild troponin elevation CHF - advised echocardiogram for which he is agreeable He states he follows with Dr. Gamble at [facility] and refuses any invasive cardiac work up to be done here and desires transfer to [place] if need be Continue current medication regimen Monitor lab closely Replace electrolytes Further recs will be based on his hospital course We would like to thank medical services for this consult Clinical Quality Measures DVT/VTE Risk/Contraindication: Risk Factor Score Per Nursin RFS Level Per Nursing on Admit: 4+=Very High VISH GEIGER Mar 23, 2019 08:40
--- NOTE | 2019-03-23 10:02 | Consultation-Cardiology ---
HPI-Cardiology Cardiology Consultation: Date of Consultation 03/23/19 Time Seen by a Provider: 09:40 Date of Admission Attending Physician Verónica Little DO Admitting Physician Ap Avila DO Consulting Physician JEFFREY BARRAZA MD, MA, FACP, FACC, FSCAI, CCDS HPI: Chief Complaint: CC: Shortness of breath HPI: Mr. Grace is an 79 year old male admitted to ICU 12 from the ED. He resides at [facility]. He states he has had n/v for the last 3 days. He states he was constipated, but now has diarrhea. He denies any c/o CP, palpitations, syncope or near syncope. He reports he has SOB "sometimes" but reports this is not new. He reports bilat LE swelling which is constant. He reports he sees Dr. Gamble in [place] for his heart and just saw him 4 months ago. He states if he needs anything done with his heart he wants to go to [place]. He currently denies any n/v. He is continuously asking for a cup of coffee. Review of Systems-Cardiology Review of Systems Constitutional: No chills, No fever, No malaise Eyes: No vision change Ears/Nose/Throat: No epistaxis, No recent hearing loss Respiratory: As described under HPI Cardiovascular: As described under HPI Gastrointestinal: As described under HPI Genitourinary: dysuria Musculoskeletal: joint pain Skin: No rash on exposed areas, No ulcerations on exposed areas Psychiatric/Neurological: anxiety; No seizure, No focal weakness, No syncope Hematologic: No bleeding abnormalities All Other Systems Reviewed Negative Unless Noted: Yes (Negative excepted noted.) [id number]-Xcohbc Hx Patient Social History Alcohol Use: Denies Use Recreational Drug Use: No Smoking Status: Never a Smoker Type Used: Cigarettes 2nd Hand Smoke Exposure: Yes Recent Foreign Travel: No Recent Infectious Disease Expo: No Immunizations Up To Date Date of Influenza Vaccine: Sep 09, 2017 Past Medical History PMH As described under Assessment. Family Medical History Family Medical History: Does not report fam h/o early CAD or SCD Family History: Unknown family medical history Allergies and Home Medications Allergies Coded Allergies: amoxicillin (Verified Allergy, Unknown, 10/09/17) Home Medications Acetaminophen 500 Mg Tablet, 1,000 MG PO Q4H PRN for MILD PAIN/ FEVER OVER 100, (Reported) Atorvastatin Calcium 10 Mg Tablet, 10 MG PO HS, (Reported) Citalopram Hydrobromide 20 Mg Tablet, 20 MG PO DAILY, (Reported) Clonazepam 0.5 Mg Tablet, 0.5 MG PO TID, (Reported) Cyanocobalamin (Vitamin B-12) 1,000 Mcg Tab.subl, 1,000 MCG SL DAILY, (Reported) Gabapentin 800 Mg Tablet, 800 MG PO TID, (Reported) Glimepiride 1 Mg Tab, 1 MG PO DAILY, (Reported) Melatonin 3 Mg Tablet, 3 MG PO HS, (Reported) Melatonin 3 Mg Tablet, 9 MG PO HS PRN for INSOMNIA, (Reported) Memantine HCl 5 Mg Tablet, 5 MG PO DAILY, (Reported) Omeprazole 40 Mg Capsule.dr, 40 MG PO DAILY, (Reported) Ondansetron 4 Mg Tab.rapdis, 4 MG SL Q4H PRN for NAUSEA/VOMITING-1ST LINE Prescribed by: SWAPNIL WILSON on 01/13/18 1423 Promethazine HCl 25 Mg Tablet, 25 MG PO Q6H PRN for NAUSEA/VOMITING-2ND LINE, (Reported) Sitagliptin Phosphate 100 Mg Tablet, 100 MG PO DAILY, (Reported) Sucralfate 1 Gm Tablet, 1 GM PO QID, (Reported) Tamsulosin HCl 0.4 Mg Cap, 0.4 MG PO HS, (Reported) Patient Home Medication List Home Medication List Reviewed: Yes Physical Exam-Cardiology Physical Exam Vital Signs/I&O 03/22/19 03/22/19 03/22/19 03/22/19 22:05 23:09 23:10 23:15 Temp 98.1 B/P (MAP) Pulse Ox 97 100 100 92 O2 Delivery Vapotherm Vapotherm Vapotherm Vapotherm O2 Flow Rate 30.00 40.00 20.00 40.00 20.00 20.00 FiO2 50 40 03/22/19 03/23/19 03/23/19 03/23/19 23:36 00:00 01:00 01:40 Pulse 71 70 Resp 27 B/P (MAP) 137/75 (95) Pulse Ox 88 93 99 O2 Delivery Vapotherm Vapotherm Vapotherm O2 Flow Rate 50.00 50.00 40.00 30.00 30.00 20.00 7/103/23/19 03/23/19 03/23/19 02:35 03:45 03:50 04:00 Temp 98.0 Pulse 72 Resp 11 B/P (MAP) 135/79 (97) Pulse Ox 95 99 99 90 O2 Delivery Vapotherm Vapotherm Vapotherm Vapotherm O2 Flow Rate 20.00 20.00 40.00 40.00 20.00 20.00 FiO2 40 40 03/23/19 03/23/19 03/23/19 03/23/19 04:37 06:05 06:40 07:00 Pulse 89 96 81 Resp 11 17 B/P (MAP) Pulse Ox 100 96 91 O2 Delivery Vapotherm Nasal Cannula Nasal Cannula O2 Flow Rate 30.00 4.00 2.00 10.00 03/23/19 03/23/19 03/23/19 03/23/19 07:09 07:32 07:35 07:37 Temp 97.7 Pulse 75 Resp 30 B/P (MAP) 134/103 (113) Pulse Ox 100 95 95 95 O2 Delivery Nasal Cannula Nasal Cannula Nasal Cannula Nasal Cannula O2 Flow Rate 4.00 2.00 2.00 2.00 03/23/19 00:00 Intake Total 1680 ml Output Total 2500 ml Balance -820 ml Capillary Refill : Less Than 3 Seconds Constitutional: AAO x 3, well-developed, well-nourished HEENT: PERRL, hearing is well preserved; No xanthelasmas are seen Neck: No carotid bruit; carotid pulses are 2 + bilaterally Respiratory: No accessory muscle use; chest expansion is symmetric, chest is bilaterally symmetric, lungs clear to auscultation Cardiovascular: regular rate-rhythm; No JVD; S1 and S2, systolic murmur Gastrointestinal: No tender; soft, round, audible bowel sounds (hyperactive) Rectal: deferred Genital/Rectal: other (indwelling urinary catheter to DD with clear, yellow urine) Extremities: no lower extremity edema bilateral Neurologic/Psychiatric: grossly intact Skin: No rash on exposed areas, No ulcerations on exposed areas Data Review Labs Laboratory Tests 03/22/19 15:41: White Blood Count 7.1, Red Blood Count 4.15L, Hemoglobin 12.8L, Hematocrit 38L, Mean Corpuscular Volume 92, Mean Corpuscular Hemoglobin 31, Mean Corpuscular Hemoglobin Concent 33, Red Cell Distribution Width 13.9, Platelet Count 210, Mean Platelet Volume 9.0, Neutrophils (%) (Auto) 70, Lymphocytes (%) (Auto) 20, Monocytes (%) (Auto) 8, Eosinophils (%) (Auto) 2, Basophils (%) (Auto) 1, Neutrophils # (Auto) 5.0, Lymphocytes # (Auto) 1.4, Monocytes # (Auto) 0.6, Eosinophils # (Auto) 0.2, Basophils # (Auto) 0.0, Sodium Level 139, Potassium Level 3.6, Chloride Level 102, Carbon Dioxide Level 26, Anion Gap 11, Blood Urea Nitrogen 7, Creatinine 0.81, Estimat Glomerular Filtration Rate > 60, BUN/Creatinine Ratio 9, Glucose Level 140H, Calcium Level 9.6, Corrected Calcium 9.4, Total Bilirubin 0.7, Aspartate Amino Transf (AST/SGOT) 16, Alanine Aminotransferase (ALT/SGPT) 20, Alkaline Phosphatase 97, Troponin I 0.048H, Total Protein 6.8, Albumin 4.2, Lipase 14 03/22/19 15:47: Prothrombin Time 13.2, INR Comment 1.0, Activated Partial Thromboplast Time 25, Magnesium Level 1.5L, B-Type Natriuretic Peptide 1023.3H 03/22/19 16:08: Urine Color YELLOW, Urine Clarity CLEAR, Urine pH 7, Urine Specific [place] 1.010L, Urine Protein NEGATIVE, Urine Glucose (UA) NEGATIVE, Urine Ketones 2+H, Urine Nitrite NEGATIVE, Urine Bilirubin NEGATIVE, Urine Urobilinogen NORMAL, Urine Leukocyte Esterase NEGATIVE, Urine RBC (Auto) NEGATIVE, Urine RBC NONE, Urine WBC RARE, Urine Squamous Epithelial Cells NONE, Urine Crystals NONE, Urine Bacteria NEGATIVE, Urine Casts NONE, Urine Mucus NEGATIVE, Urine Culture Indicated NO 03/22/19 20:39: Glucometer 225H 03/22/19 23:43: Troponin I 0.078H 03/23/19 03:10: White Blood Count 6.2, Red Blood Count 3.97L, Hemoglobin 12.1L, Hematocrit 37L, Mean Corpuscular Volume 93, Mean Corpuscular Hemoglobin 31, Mean Corpuscular Hemoglobin Concent 33, Red Cell Distribution Width 14.0, Platelet Count 188, Mean Platelet Volume 9.1, Neutrophils (%) (Auto) 63, Lymphocytes (%) (Auto) 20, Monocytes (%) (Auto) 12, Eosinophils (%) (Auto) 4, Basophils (%) (Auto) 1, Neutrophils # (Auto) 3.9, Lymphocytes # (Auto) 1.3, Monocytes # (Auto) 0.7, Eosinophils # (Auto) 0.3, Basophils # (Auto) 0.1, Sodium Level 140, Potassium Level 3.3L, Chloride Level 102, Carbon Dioxide Level 27, Anion Gap 11, Blood Urea Nitrogen 7, Creatinine 0.84, Estimat Glomerular Filtration Rate > 60, BUN/Creatinine Ratio 8, Glucose Level 113H, Calcium Level 9.1, Corrected Calcium 9.3, Phosphorus Level 3.3, Magnesium Level 2.1, Total Bilirubin 0.8, Aspartate Amino Transf (AST/SGOT) 16, Alanine Aminotransferase (ALT/SGPT) 19, Alkaline Phosphatase 87, Total Protein 6.5, Albumin 3.8 Laboratory Tests 03/22/19 15:41 03/23/19 03:10 A/P-Cardiology Assessment/Admission Diagnosis CHF, etiology undetermined Minimal troponin elevation, likely type 2 NM due to CHF Nausea/vomiting/diarrhea - management per medical services H/O PPM implanted by Dr. Jo of cardiology services in [place], [place] d/t symptomatic bradycardia per pt report with a pulse generator change out by Dr. Jo February 2011 - reports it is followed by Dr. 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 Bojorquez at [facility] in [place], [place] in the s or Paroxysmal a-fib which he reports was diagnosed 4 years ago. He states he refuses OAC of any kind other than ASA HTN HLP DM Type 2 GERD Hiatal hernia H/O traumatic brain injury from [place] Discussion and Recomendations Follow labs Echo Diuretics Replenish lytes He states he follows with Dr. Gamble at [facility] and refuses any invasive cardiac work up to be done here and desires transfer to [place] if need be Further recs will be based on his hospital course We would like to thank Medical Services for this consult Clinical Quality Measures DVT/VTE Risk/Contraindication: Risk Factor Score Per Nursin RFS Level Per Nursing on Admit: 4+=Very High JEFFREY BARRAZA MD FACP FAC CCDS Mar 23, 2019 10:02
--- NOTE | 2019-03-23 14:30 | NUR ---
PT ARRIVED TO ROOM. THIS RN TO RESUME CARE. THIS RN AGREES WITH PREVIOUS NURSES ASSESSMENT.
[2019-03-23] MEDS ORDERED: FLUT16SP22 NS (14:48)
[2019-03-23] MEDS ORDERED: SOTA80TA62 PO (14:48)
[2019-03-23] MEDS ORDERED: SITA100T12 PO (14:48)
[2019-03-23] MEDS ORDERED: PROP15DR OU (14:48)
[2019-03-23] MEDS ORDERED: ALBU2.5V4 NEB ×2 (14:48)
[2019-03-23] MEDS ORDERED: GBPN600T PO (14:48)
[2019-03-23] MEDS ORDERED: MIRT7.5T8 PO (14:48)
[2019-03-23] MEDS ORDERED: DICL100G18 TD (14:48)
[2019-03-23] MEDS ORDERED: METF-397 PO (14:48)
[2019-03-23] MEDS ORDERED: ONDA4TAB11 PO (14:48)
[2019-03-23] MEDS ORDERED: BIMA2.5D4 OU (14:48)
--- NOTE | 2019-03-23 14:52 | NUR ---
UPDATED MED REC WITH ORDER SUMMARY REPORT FROM [facility]
--- NOTE | 2019-03-23 18:40 | History & Physicial ---
History of Present Illness History of Present Illness Reason for visit/HPI [facility]. Patient had epigastric pain, vomiting, diarrhea, and nauseousness. Patient brought out to the emergency room. Chest x-ray shows bilateral pleural effusion. Large hiatal hernia. Congestive heart failure. BNP elevated. Patient states he hurts down below Date of Admission Mar 22, 2019 at 17:40 Time Seen by a Provider: 18:36 I consulted on this patient on 03/23/19 18:30 Attending Physician Verónica Little DO Admitting Physician Ap Avila DO Consult Allergies and Home Medications Allergies Coded Allergies: amoxicillin (Verified Allergy, Unknown, 10/09/17) Home Medications Acetaminophen 500 Mg Tablet, 1,000 MG PO Q4H PRN for PAIN-MILD OR TEMPATURE, (Reported) Albuterol Sulfate 2.5 Mg/3 Ml Vial.neb, 2.5 MG NEB Q6H PRN for SHORTNESS OF BREATH, (Reported) Albuterol Sulfate 2.5 Mg/3 Ml Vial.neb, 2.5 MG NEB QID, (Reported) Atorvastatin Calcium 10 Mg Tablet, 10 MG PO HS, (Reported) Bimatoprost 2.5 Ml Drops, 1 DROP OU HS, (Reported) Cyanocobalamin (Vitamin B-12) 1,000 Mcg Tab.subl, 1,000 MCG SL DAILY, (Reported) Diclofenac Sodium 100 Gm Gel..gram., 4 GM TD Q8H PRN for RIGHT KNEE PAIN, (Reported) Fluticasone Propionate 16 Gm [place].susp, 2 SPRAYS NS DAILY PRN for CONGESTION, (Reported) Gabapentin 600 Mg Tablet, 600 MG PO TID, (Reported) Melatonin 3 Mg Tablet, 3 MG PO HS, (Reported) Metformin HCl 500 Mg Tablet, 500 MG PO BID, (Reported) Mirtazapine 7.5 Mg Tablet, 7.5 MG PO HS, (Reported) Omeprazole 40 Mg Capsule.dr, 40 MG PO BID, (Reported) Ondansetron 4 Mg Tab.rapdis, 4 MG PO Q4H PRN for NAUSEA/VOMITING-1ST LINE, (Reported) Propylene Glycol/Peg 400 15 Ml Drops, 1 DROP OU BID, (Reported) Sitagliptin Phosphate 100 Mg Tablet, 100 MG PO DAILY, (Reported) Sotalol HCl 80 Mg Tablet, 80 MG PO BID, (Reported) HOLD FOR DBP<100 OR PULSE <60 Sucralfate 1 Gm Tablet, 1 GM PO QID, (Reported) Tamsulosin HCl 0.4 Mg Cap, 0.4 MG PO HS, (Reported) Patient Home Medication List Home Medication List Reviewed: Yes Past Hlxwmwk-Zrhqit-Uugwvz Hx Patient Social History Alcohol Use: Denies Use Recreational Drug Use: No Smoking Status: Never a Smoker Type Used: Cigarettes 2nd Hand Smoke Exposure: Yes Recent Foreign Travel: No Contact w/other who traveled: No Recent Hopitalizations: No Recent Infectious Disease Expo: No Immunizations Up To Date Date of Influenza Vaccine: Sep 09, 2017 Seasonal Allergies Seasonal Allergies: No Surgeries Yes (UNKNOWN EXCEPT FOR EVIDENCE OF PACEMAKER) Pacemaker Respiratory Yes Currently Using CPAP: No Currently Using BIPAP: No Cardiovascular Yes Coronary Artery Disease, High Cholesterol, Hypertension Neurological Yes Dementia, Stroke, TIA Genitourinary Yes Benign Prostatic Hyperpl Gastrointestinal Yes Gastrointestinal Bleed, Hiatal Hernia (large hiatal hernia) Musculoskeletal Yes (CHRONIC PAIN; GENERALIZED WEAKNESS; UNSTEADY GAIT) Chronic Back Pain Endocrine History of Endocrine Disorders: Yes Endocrine Disorders: Diabetes, Non-Insulin dep HEENT History of HEENT Disorders: Yes Loss of Vision: Right Hearing Impairment: Deaf Cancer No Psychosocial History of Psychiatric Problem: Yes (SUICIDAL IDEATIONS) Behavioral Health Disorders: Anxiety, Depression Integumentary History of Skin or Integumenta: Yes (bilateral ears) Skin/Integumentary Disorders: Recent Skin Changes Blood Transfusions History of Blood Disorders: No Adverse Reaction to a Blood Tr: No Family Medical History Significant Family History: No Pertinent Family Hx Family Hx: Unknown family medical history Review of Systems Constitutional: weakness EENTM: no symptoms reported Respiratory: short of breath Cardiovascular: chest pain Gastrointestinal: nausea, vomiting Genitourinary: hematuria Physical Exam Vital Signs Vital Signs - First Documented 03/22/19 03/22/19 03/22/19 15:15 17:54 21:00 Temp 98.7 Pulse 76 Resp 24 B/P (MAP) 142/105 (117) Pulse Ox 97 O2 Delivery Room Air O2 Flow Rate 2.00 FiO2 50 Capillary Refill : Less Than 3 Seconds Height, Weight, BMI Height: 6'1.00" Weight: 226lbs. 1.0oz. 102.846136yn; 30.3 BMI Method:Stated General Appearance: No Apparent Distress, WD/WN Eyes: Bilateral Eye Normal Inspection HEENT: Normal ENT Inspection Neck: Full Range of Motion, Normal Inspection Respiratory: No Accessory Muscle Use, No Respiratory Distress, Decreased Breath Sounds Cardiovascular: Regular Rate, Rhythm, No Murmur Gastrointestinal: Non Tender, Soft Assessment/Plan Assessment and Plan Elevated troponin. Hypertension. Nausea and vomiting. Congestive heart failure. Hypokalemia. Large hiatal hernia. Diabetes. Epigastric pain. Hematuria. Admission Diagnosis Admission Status: Inpatient Order (span 2 midnights) Reason for Inpatient Admission: Nausea and vomiting. Large hiatal hernia. CHF. Abdominal pain. Hematuria Clinical Quality Measures DVT/VTE Risk/Contraindication: Risk Factor Score Per Nursin RFS Level Per Nursing on Admit: 4+=Very High AP AVILA DO Mar 23, 2019 18:40
[2019-03-23] MEDS ORDERED: FLUTICASONE NASAL SPRAY (FLONASE) 16 GM BTL NS PRN (18:45)
[2019-03-23] MEDS ORDERED: ONDANSETRON 4 MG (ZOFRAN) ORAL DISSOLVE TAB PO PRN (18:45)
[2019-03-23] MEDS ORDERED: RT-ALBUTEROL SULF 2.5 MG/3 ML PRE-MIX VIAL IH PRN (18:45)
[2019-03-23 18:51] LABS: BILIRUBIN,URINE NEGATIVE (NEGATIVE); COLOR,URINE RED; GLUCOSE, URINE (UA) NEGATIVE (NEGATIVE); KETONES,URINE 2+ (NEGATIVE); LEUKOCYTE ESTERASE ,URINE 2+ (NEGATIVE); NITRITE,URINE NEGATIVE (NEGATIVE); PH,URINE 8 (5-9); PROTEIN,URINE 3+ (NEGATIVE); UROBILINOGEN,URINE NORMAL (NORMAL)
[2019-03-23 19:10] LABS: BACTERIA,URINE FEW /HPF; CLARITY,URINE BLOODY; RBC,URINE TNTC /HPF
[2019-03-23] MEDS ORDERED: SYSTANE EYE DROPS 15 ML (NON-FORMULARY) OP SCH (21:00)
[2019-03-23] MEDS: GABAPENTIN 600 MG (NEURONTIN) TAB PO SCH (21:01)
[2019-03-23] MEDS: ARTIFICAL TEARS 0.4 ML UNIT DOSE (REFRESH PLUS) OU SCH (21:02)
[2019-03-23] MEDS: TAMSULOSIN 0.4 MG (FLOMAX) CAP PO SCH (21:02)
[2019-03-23] MEDS: ATORVASTATIN 10 MG (LIPITOR) TABLET PO SCH (21:02)
[2019-03-24] MEDS: RT-ALBUTEROL/IPRATROPIUM 3 ML (DUONEB) VIAL INH SCH ×6 (02:59→22:33)
[2019-03-24 03:58] VITALS: BP 108/58
[2019-03-24 06:03] LABS: RED CELL DISTRIBUTION WIDTH 13.9 % (10.0-14.5); WHITE BLOOD COUNT 6.5 10^3/uL (4.3-11.0)
[2019-03-24] MEDS: FUROSEMIDE 40 MG/4 ML INJ (LASIX) IV SCH (06:07)
[2019-03-24 06:32] LABS: BILIRUBIN,TOTAL 0.7 MG/DL (0.1-1.0); BUN/CREATININE RATIO 9; CALCIUM 9.6 MG/DL (8.5-10.1); CARBON DIOXIDE 28 MMOL/L (21-32); CHLORIDE 100 MMOL/L (98-107); CREATININE SERUM 1.02 MG/DL (0.60-1.30); GFR ESTIMATED > 60; GLUCOSE 125 MG/DL (70-105); MAGNESIUM 1.9 MG/DL (1.8-2.4); POTASSIUM 3.4 MMOL/L (3.6-5.0); SODIUM 139 MMOL/L (135-145)
[2019-03-24 06:33] LABS: ALANINE AMINOTRANSFERASE 20 U/L (0-55); ALBUMIN 4.1 GM/DL (3.2-4.5); ALKALINE PHOSPHATASE 88 U/L (40-136); CHOLESTEROL 154 MG/DL (< 200); HDL CHOLESTEROL 30 MG/DL (40-60); TRIGLYCERIDES 109 MG/DL (<150); VLDL CHOLESTEROL 22 MG/DL (5-40)
[2019-03-24] MEDS ORDERED: KCL 20 MEQ TAB (K-DUR) PO NR ×2 (07:30→11:15)
[2019-03-24 07:31] VITALS: BP 118/67
--- NOTE | 2019-03-24 07:35 | Progress Note (SOAP) ---
Subjective Time Seen by a Provider: 07:30 Subjective/Events-last exam Feeling better today. Patient doesn't have abdominal pain. Patient has UTI. Patient was 15 pounds since admission. Patient states she's breathing better. Patient in the right direction. BNP approximately the same Objective Exam Vital Signs Date Time Temp Pulse Resp B/P (MAP) Pulse Ox O2 Delivery O2 Flow Rate FiO2 03/24/19 07:17 90 Nasal Cannula 2.00 03/24/19 07:00 77 03/24/19 04:01 Nasal Cannula 2.00 03/24/19 03:58 97.1 74 18 108/58 (75) 97 Nasal Cannula 2.00 03/24/19 03:01 Nasal Cannula 2.00 03/24/19 01:00 70 03/23/19 23:34 Nasal Cannula 2.00 03/23/19 23:19 97.1 71 20 128/66 (86) 91 Nasal Cannula 2.00 03/23/19 22:51 Nasal Cannula 2.00 03/23/19 21:00 Nasal Cannula 2.00 03/23/19 20:00 97.6 70 22 178/92 (120) 96 Nasal Cannula 2.00 03/23/19 20:00 Nasal Cannula 2.00 03/23/19 19:21 92 Nasal Cannula 2.00 03/23/19 19:00 85 03/23/19 16:00 98.2 98 19 187/73 (111) 95 Nasal Cannula 2.00 03/23/19 16:00 95 Nasal Cannula 2.00 03/23/19 15:19 94 Nasal Cannula 3.00 03/23/19 14:15 98.6 85 18 153/86 (108) 94 Nasal Cannula 3.00 03/23/19 12:00 98.1 70 24 132/73 (92) 90 Nasal Cannula 2.00 03/23/19 12:00 95 Nasal Cannula 2.00 03/23/19 09:00 95 Nasal Cannula 2.00 03/23/19 09:00 76 23 165/80 (108) 97 Nasal Cannula 2.00 03/23/19 08:00 76 23 134/103 (113) 97 Nasal Cannula 2.00 03/23/19 07:37 95 Nasal Cannula 2.00 03/23/19 07:35 95 Nasal Cannula 2.00 03/23/19 07:32 97.7 75 30 134/103 (990) 95 Nasal Cannula 2.00 I & O 03/24/19 07:00 Intake Total 600 ml Output Total 1125 ml Balance -525 ml Capillary Refill : Less Than 3 Seconds General Appearance: No Apparent Distress, WD/WN HEENT: Normal ENT Inspection Neck: Full Range of Motion, Normal Inspection Respiratory: No Accessory Muscle Use, No Respiratory Distress, Decreased Breath Sounds Cardiovascular: Regular Rate, Rhythm, No Murmur Gastrointestinal: non tender, soft Results Lab Laboratory Tests 03/24/19 05:35 Laboratory Tests 03/23/19 12:26: Glucometer 136H 03/23/19 16:03: Glucometer 168H 03/23/19 18:24: Urine Color REDH, Urine Clarity BLOODYH, Urine pH 8, Urine Specific [place] 1.010L, Urine Protein 3+H, Urine Glucose (UA) NEGATIVE, Urine Ketones 2+H, Urine Nitrite NEGATIVE, Urine Bilirubin NEGATIVE, Urine Urobilinogen NORMAL, Urine Leukocyte Esterase 2+H, Urine RBC (Auto) 5+H, Urine RBC TNTCH, Urine WBC 5-10H, Urine Crystals NONE, Urine Bacteria FEWH, Urine Casts NONE, Urine Mucus NEGATIVE, Urine Culture Indicated YES 03/23/19 20:58: Glucometer 132H 03/24/19 05:24: Glucometer 118H 03/24/19 05:35: White Blood Count 6.5, Red Blood Count 4.21L, Hemoglobin 13.0L, Hematocrit 39L, Mean Corpuscular Volume 92, Mean Corpuscular Hemoglobin 31, Mean Corpuscular Hemoglobin Concent 34, Red Cell Distribution Width 13.9, Platelet Count 218, Mean Platelet Volume 9.0, Sodium Level 139, Potassium Level 3.4L, Chloride Level 100, Carbon Dioxide Level 28, Anion Gap 11, Blood Urea Nitrogen 9, Creatinine 1.02, Estimat Glomerular Filtration Rate > 60, BUN/Creatinine Ratio 9, Glucose Level 125H, Calcium Level 9.6, Corrected Calcium 9.5, Magnesium Level 1.9, Total Bilirubin 0.7, Aspartate Amino Transf (AST/SGOT) 20, Alanine Aminotransferase (ALT/SGPT) 20, Alkaline Phosphatase 88, B-Type Natriuretic Peptide 1104.5H, Total Protein 7.0, Albumin 4.1, Triglycerides Level 109, Cholesterol Level 154, LDL Cholesterol Direct 115, VLDL Cholesterol 22, HDL Cholesterol 30L, Thyroid Stimulating Hormone (TSH) 2.03 Assessment/Plan Assessment/Plan Assess & Plan/Chief Complaint Elevated troponin CA to. Congestive heart failure. UTI. Hematuria. Chest x-ray not done yet this morning. BNP 1100 from 1000. UA shows infection. Pleural effusion Clinical Quality Measures Admission Status Admission Dx Elevated troponin. Hypertension. Nausea and vomiting. Congestive heart failure. Hypokalemia. Large hiatal hernia. Diabetes. Epigastric pain. Hematuria. DVT/VTE Risk/Contraindication: Risk Factor Score Per Nursin RFS Level Per Nursing on Admit: 4+=Very High Contraindications-Pharm: Other *list below* DEANA ALFONSO DO Mar 24, 2019 07:34
--- NOTE | 2019-03-24 07:49 | NUR ---
dr szymanski on the floor to see pt-new orders received.
[2019-03-24] MEDS: TRIM/SULFAMETH 160/800 (SEPTRA DS) TAB PO SCH ×2 (08:40→20:42)
--- NOTE | 2019-03-24 09:12 | Diagnostic Imaging Report ---
Indication: Elevated troponin. Comparison made with prior examination of 03/23/2019. Findings: There is cardiomegaly. Some venous congestion. There are patchy bibasilar infiltrates. No pleural effusion or pneumothorax. Pacemaker overlies left hemithorax. Impression: Patchy bibasal infiltrates, right greater than left. Cardiomegaly and some central pulmonary venous congestion. Dictated by: Dictated on workstation # [id number]
[2019-03-24] MEDS: GABAPENTIN 600 MG (NEURONTIN) TAB PO SCH ×3 (09:49→20:42)
[2019-03-24] MEDS: FAMOTIDINE 20MG/2ML IV (PEPCID) IV SCH ×2 (09:49→21:00)
[2019-03-24] MEDS: ARTIFICAL TEARS 0.4 ML UNIT DOSE (REFRESH PLUS) OU SCH ×2 (09:49→20:42)
--- NOTE | 2019-03-24 10:59 | Progress Note-Cardiology ---
Cardiology SOAP Progress Note Subjective: Sitting up in bed. Denies any c/o CP, palpitations. Feels his breathing is better today. Objective: I&O/Vital Signs 03/24/19 03/24/19 03/24/19 03/24/19 07:00 07:17 07:31 08:00 Temp 97.1 Pulse 77 81 Resp 18 B/P (MAP) 118/67 (84) Pulse Ox 90 92 O2 Delivery Nasal Cannula Nasal Cannula Nasal Cannula O2 Flow Rate 2.00 2.00 2.00 03/24/19 03/24/19 03/24/19 03/24/19 09:00 10:37 11:21 12:00 Temp 97.6 Pulse 77 Resp 18 B/P (MAP) 100/63 (75) Pulse Ox 93 95 O2 Delivery Nasal Cannula Nasal Cannula Nasal Cannula Nasal Cannula O2 Flow Rate 2.00 2.00 2.00 2.00 03/24/19 03/24/19 03/24/19 13:00 14:57 15:56 Temp 97.8 Pulse 80 78 Resp 20 B/P (MAP) 120/62 (81) Pulse Ox 94 93 O2 Delivery Nasal Cannula Nasal Cannula O2 Flow Rate 2.00 2.00 03/24/19 00:00 Intake Total 360 ml Output Total 950 ml Balance -590 ml Weight (Pounds): 223 Weight (Ounces): 8.0 Weight (Calculated Kilograms): 101.739995 Constitutional: AAO x 3, well-developed, well-nourished Respiratory: No accessory muscle use; chest expansion is symmetric, chest is bilaterally symmetric, lungs clear to auscultation Cardiovascular: regular rate-rhythm; No JVD; S1 and S2, systolic murmur Gastrointestional: No tender; soft, round, audible bowel sounds (hyperactive) Extremities: no lower extremity edema bilateral Neurologic/Psychiatric: grossly intact Skin: No rash on exposed areas, No ulcerations on exposed areas Results/Procedures: Labs Laboratory Tests 03/23/19 18:24: Urine Color REDH, Urine Clarity BLOODYH, Urine pH 8, Urine Specific [place] 1.010L, Urine Protein 3+H, Urine Glucose (UA) NEGATIVE, Urine Ketones 2+H, Urine Nitrite NEGATIVE, Urine Bilirubin NEGATIVE, Urine Urobilinogen NORMAL, Urine Leukocyte Esterase 2+H, Urine RBC (Auto) 5+H, Urine RBC TNTCH, Urine WBC 5-10H, Urine Crystals NONE, Urine Bacteria FEWH, Urine Casts NONE, Urine Mucus NEGATIVE, Urine Culture Indicated YES 03/23/19 20:58: Glucometer 132H 03/24/19 05:24: Glucometer 118H 03/24/19 05:35: White Blood Count 6.5, Red Blood Count 4.21L, Hemoglobin 13.0L, Hematocrit 39L, Mean Corpuscular Volume 92, Mean Corpuscular Hemoglobin 31, Mean Corpuscular Hemoglobin Concent 34, Red Cell Distribution Width 13.9, Platelet Count 218, Mean Platelet Volume 9.0, Sodium Level 139, Potassium Level 3.4L, Chloride Level 100, Carbon Dioxide Level 28, Anion Gap 11, Blood Urea Nitrogen 9, Creatinine 1.02, Estimat Glomerular Filtration Rate > 60, BUN/Creatinine Ratio 9, Glucose Level 125H, Calcium Level 9.6, Corrected Calcium 9.5, Magnesium Level 1.9, Total Bilirubin 0.7, Aspartate Amino Transf (AST/SGOT) 20, Alanine Aminotransferase (ALT/SGPT) 20, Alkaline Phosphatase 88, B-Type Natriuretic Peptide 1104.5H, Total Protein 7.0, Albumin 4.1, Triglycerides Level 109, Cholesterol Level 154, LDL Cholesterol Direct 115, VLDL Cholesterol 22, HDL Cholesterol 30L, Thyroid Stimulating Hormone (TSH) 2.03 03/24/19 10:42: Glucometer 179H 03/24/19 15:55: Glucometer 136H Microbiology 03/24/19 C. difficile GDH Antigen & Toxins - Final, Complete 03/23/19 Urine Culture - Final, Complete NO GROWTH A/P: Assessment: Ac systolic and diastolic CHF Minimal troponin elevation, likely type 2 CO due to CHF Echocardiogram of 03-23-19 showed LVEF 45-50%. Grade 1 diastolic dysfunction. LA severely dilated. Mild MR. AoV sclerosis with mild regurg. 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 oJ February 2011 - reports it is followed by Dr. Gamble Reports h/o CAD with stent placement in the early at [facility] in [place], [place] - reports his primary psychiatric np is Dr. Gamble at [facility] Reports h/o AAA repair with graft placement by Dr. Bojorquez at [facility] in [place], [place] in the s or Paroxysmal a-fib which he reports was diagnosed 4 years ago. He states he refuses OAC of any kind other than ASA HTN HLP DM Type 2 GERD Hiatal hernia H/O traumatic brain injury from [place] Plan: Continue current regimen Replace electrolytes Change Lasix to oral starting tomorrow Monitor lab He states he follows with Dr. Gamble at [facility] and refuses any invasive cardiac work up to be done here and desires transfer to [place] if need be Physician Assessment Physician Assessment No cp or palp or syncope or shortness of breath at rest Gen malaise and weakness, but better Lungs: good bilat air entry, diminished at the bases Cor: irreg Ext: no c/c/e A&R * As documented in our note above that I updated (italics) and as noted below * I answered his CV-related questions * Continue current regimen * Monitor labs VISH GEIG[employer] Mar 24, 2019 10:59 JEFFREY BARRAZA MD FACP FAC [facility] Mar 24, 2019 17:39
[2019-03-24 11:21] VITALS: BP 100/63
[2019-03-24] MEDS ORDERED: AZITHROMYCIN INJECTION 500 MG in NS (IVPB) 250 ML IV SCH (11:30)
--- NOTE | 2019-03-24 13:13 | Pulmonary Progress Note ---
Subjective Time Seen by a Provider: 07:35 Subjective/Events-last exam Pt appears improved. Sepsis Event Evaluation Height, Weight, BMI Height: 6'1.00" Weight: 223lbs. 8.0oz. 101.099261yj; 30.3 BMI Method:Stated Exam Exam Vital Signs Date Time Temp Pulse Resp B/P (MAP) Pulse Ox O2 Delivery O2 Flow Rate FiO2 03/24/19 11:21 97.6 77 18 100/63 (75) 95 Nasal Cannula 2.00 03/24/19 10:37 93 Nasal Cannula 2.00 03/24/19 07:31 97.1 81 18 118/67 (84) 92 Nasal Cannula 2.00 03/24/19 07:17 90 Nasal Cannula 2.00 03/24/19 07:00 77 03/24/19 04:01 Nasal Cannula 2.00 03/24/19 03:58 97.1 74 18 108/58 (75) 97 Nasal Cannula 2.00 03/24/19 03:01 Nasal Cannula 2.00 03/24/19 01:00 70 03/23/19 23:34 Nasal Cannula 2.00 03/23/19 23:19 97.1 71 20 128/66 (86) 91 Nasal Cannula 2.00 03/23/19 22:51 Nasal Cannula 2.00 03/23/19 21:00 Nasal Cannula 2.00 03/23/19 20:00 97.6 70 22 178/92 (120) 96 Nasal Cannula 2.00 03/23/19 20:00 Nasal Cannula 2.00 03/23/19 19:21 92 Nasal Cannula 2.00 03/23/19 19:00 85 03/23/19 16:00 98.2 98 19 187/73 (111) 95 Nasal Cannula 2.00 03/23/19 16:00 95 Nasal Cannula 2.00 03/23/19 15:19 94 Nasal Cannula 3.00 03/23/19 14:15 98.6 85 18 153/86 (108) 94 Nasal Cannula 3.00 I & O 03/24/19 07:00 Intake Total 600 ml Output Total 1125 ml Balance -525 ml Height & Weight Height: 6'1.00" Weight: 223lbs. 8.0oz. 101.123493rg; 30.3 BMI Method:Stated General Appearance: No Apparent Distress, WD/WN HEENT: Normal ENT Inspection Neck: Full Range of Motion, Normal Inspection Respiratory: No Accessory Muscle Use, No Respiratory Distress, Decreased Breath Sounds Cardiovascular: Regular Rate, Rhythm, No Murmur Capillary Refill: Less Than 3 Seconds Gastrointestinal: non tender, soft Neurologic/Psychiatric: Alert, Oriented x3 Skin: Normal Color, Warm/Dry Lymphatic: No Adenopathy Results Lab Laboratory Tests 03/22/19 15:41 03/23/19 03:10 03/24/19 05:35 Assessment/Plan Assessment/Plan Acute respiratory distress with hypoxia -Titrate oxygen as tolerated pulmonary edema with bilateral R> left pleural effusion -- probably secondary to CHF -Echo - LVEF 45-50%. Grade 1 diastolic dysfunction. -Cardiology consulted -Lasbenito NSTEMI -Cardiology following Gastroenteritis - No abd pain -Improved continue to monitor SUSHILA STAFFORD DO Mar 24, 2019 13:13
[2019-03-24 15:56] VITALS: BP 120/62
[2019-03-24 19:46] VITALS: BP 132/66
[2019-03-24] MEDS: TAMSULOSIN 0.4 MG (FLOMAX) CAP PO SCH (20:42)
[2019-03-24] MEDS: ATORVASTATIN 10 MG (LIPITOR) TABLET PO SCH (20:43)
[2019-03-24] MEDS: ACETAMINOPHEN 325 MG TABLET PO PRN (20:43)
[2019-03-25] VITALS: BP 117/56
[2019-03-25 04:35] VITALS: BP 121/70
[2019-03-25] MEDS: TRIM/SULFAMETH 160/800 (SEPTRA DS) TAB PO SCH (05:49)
[2019-03-25 05:55] LABS: HEMOGLOBIN 13.2 G/DL (13.3-17.7); MEAN PLATELET VOLUME 9.8 FL (7.4-10.4); RED CELL DISTRIBUTION WIDTH 14.1 % (10.0-14.5)
[2019-03-25 06:12] LABS: BUN/CREATININE RATIO 12; CALCIUM 9.6 MG/DL (8.5-10.1); CARBON DIOXIDE 25 MMOL/L (21-32); CHLORIDE 100 MMOL/L (98-107); CREATININE SERUM 1.04 MG/DL (0.60-1.30); GFR ESTIMATED > 60; GLUCOSE 126 MG/DL (70-105); POTASSIUM 3.6 MMOL/L (3.6-5.0); SODIUM 139 MMOL/L (135-145)
--- NOTE | 2019-03-25 07:37 | Pulmonary Progress Note ---
Subjective Time Seen by a Provider: 07:37 Sepsis Event Evaluation Height, Weight, BMI Height: 6'1.00" Weight: 226lbs. 7.0oz. 102.718236ee; 30.3 BMI Method:Stated Exam Exam Vital Signs Date Time Temp Pulse Resp B/P (MAP) Pulse Ox O2 Delivery O2 Flow Rate FiO2 03/25/19 05:17 96 Nasal Cannula 4.00 03/25/19 04:35 97.6 72 21 121/70 (87) 96 Nasal Cannula 4.00 03/25/19 04:00 91 Nasal Cannula 4.00 03/25/19 01:00 70 03/25/19 00:00 97.1 73 18 117/56 (76) 91 Nasal Cannula 4.00 03/25/19 00:00 91 Nasal Cannula 4.00 03/24/19 22:36 91 Nasal Cannula 2.00 03/24/19 22:36 90 91 03/24/19 20:00 91 Nasal Cannula 2.00 03/24/19 20:00 91 Nasal Cannula 2.00 03/24/19 19:46 97.8 73 20 132/66 (88) 91 Nasal Cannula 2.00 03/24/19 19:15 94 Nasal Cannula 2.00 03/24/19 19:00 80 03/24/19 16:00 Nasal Cannula 2.00 03/24/19 15:56 97.8 78 20 120/62 (81) 93 Nasal Cannula 2.00 03/24/19 14:57 94 Nasal Cannula 2.00 03/24/19 13:00 80 03/24/19 12:00 Nasal Cannula 2.00 03/24/19 11:21 97.6 77 18 100/63 (75) 95 Nasal Cannula 2.00 03/24/19 10:37 93 Nasal Cannula 2.00 03/24/19 09:00 Nasal Cannula 2.00 03/24/19 08:00 Nasal Cannula 2.00 I & O 03/25/19 06:59 Intake Total 2472 ml Output Total 2150 ml Balance 322 ml Height & Weight Height: 6'1.00" Weight: 226lbs. 7.0oz. 102.613201wm; 30.3 BMI Method:Stated General Appearance: No Apparent Distress, WD/WN HEENT: Normal ENT Inspection Neck: Full Range of Motion, Normal Inspection Respiratory: No Accessory Muscle Use, No Respiratory Distress, Decreased Breath Sounds Cardiovascular: Regular Rate, Rhythm, No Murmur Capillary Refill: Less Than 3 Seconds Gastrointestinal: non tender, soft Neurologic/Psychiatric: Alert, Oriented x3 Skin: Normal Color, Warm/Dry Lymphatic: No Adenopathy Results Lab Laboratory Tests 03/24/19 05:35 03/25/19 05:15 Assessment/Plan Assessment/Plan Acute respiratory distress with hypoxia -Titrate oxygen as tolerated -repeat CXR today is pending pulmonary edema with bilateral R> left pleural effusion -- probably secondary to CHF -Echo - LVEF 45-50%. Grade 1 diastolic dysfunction. -Cardiology consulted - Continue Lasix NSTEMI -Cardiology following Gastroenteritis - No abd pain -Improved continue to monitor Pt is ok from pulmonary standpoint to discharge with Lasix. No Abx needed from pulmonary standpoint. SUSHILA STAFFORD DO Mar 25, 2019 07:37
[2019-03-25] MEDS: RT-ALBUTEROL/IPRATROPIUM 3 ML (DUONEB) VIAL INH SCH ×3 (07:40→15:29)
[2019-03-25] MEDS ORDERED: KCL 10 MEQ TAB (MICRO K) PO NR (07:45)
--- NOTE | 2019-03-25 07:48 | Progress Note (SOAP) ---
Subjective Time Seen by a Provider: 07:46 Subjective/Events-last exam Patient feeling better. Patient doing better. Patient wants to go home today. Chest x-ray and BNP ordered. CHF better. Elevated troponin. Objective Exam Vital Signs Date Time Temp Pulse Resp B/P (MAP) Pulse Ox O2 Delivery O2 Flow Rate FiO2 03/25/19 07:42 97 Nasal Cannula 4.00 03/25/19 07:00 71 03/25/19 05:17 96 Nasal Cannula 4.00 03/25/19 04:35 97.6 72 21 121/70 (87) 96 Nasal Cannula 4.00 03/25/19 04:00 91 Nasal Cannula 4.00 03/25/19 01:00 70 03/25/19 00:00 97.1 73 18 117/56 (76) 91 Nasal Cannula 4.00 03/25/19 00:00 91 Nasal Cannula 4.00 03/24/19 22:36 91 Nasal Cannula 2.00 03/24/19 22:36 90 91 03/24/19 20:00 91 Nasal Cannula 2.00 03/24/19 20:00 91 Nasal Cannula 2.00 03/24/19 19:46 97.8 73 20 132/66 (88) 91 Nasal Cannula 2.00 03/24/19 19:15 94 Nasal Cannula 2.00 03/24/19 19:00 80 03/24/19 16:00 Nasal Cannula 2.00 03/24/19 15:56 97.8 78 20 120/62 (81) 93 Nasal Cannula 2.00 03/24/19 14:57 94 Nasal Cannula 2.00 03/24/19 13:00 80 03/24/19 12:00 Nasal Cannula 2.00 03/24/19 11:21 97.6 77 18 100/63 (75) 95 Nasal Cannula 2.00 03/24/19 10:37 93 Nasal Cannula 2.00 03/24/19 09:00 Nasal Cannula 2.00 03/24/19 08:00 Nasal Cannula 2.00 I & O 03/25/19 07:00 Intake Total 2472 ml Output Total 2150 ml Balance 322 ml Capillary Refill : Less Than 3 Seconds General Appearance: No Apparent Distress, WD/WN HEENT: Normal ENT Inspection Neck: Full Range of Motion, Normal Inspection Respiratory: No Accessory Muscle Use, No Respiratory Distress, Decreased Breath Sounds Cardiovascular: Regular Rate, Rhythm, No Murmur Gastrointestinal: non tender, soft Results Lab Laboratory Tests 03/25/19 05:15 Laboratory Tests 03/24/19 10:42: Glucometer 179H 03/24/19 15:55: Glucometer 136H 03/24/19 20:57: Glucometer 153H 03/25/19 05:15: White Blood Count 6.0, Red Blood Count 4.36, Hemoglobin 13.2L, Hematocrit 40, Mean Corpuscular Volume 93, Mean Corpuscular Hemoglobin 30, Mean Corpuscular Hemoglobin Concent 33, Red Cell Distribution Width 14.1, Platelet Count 212, Mean Platelet Volume 9.8, Sodium Level 139, Potassium Level 3.6, Chloride Level 100, Carbon Dioxide Level 25, Anion Gap 14, Blood Urea Nitrogen 12, Creatinine 1.04, Estimat Glomerular Filtration Rate > 60, BUN/Creatinine Ratio 12, Glucose Level 126H, Calcium Level 9.6 03/25/19 05:26: Glucometer 146H Microbiology 03/24/19 C. difficile GD Antigen & Toxins - Final, Complete 03/23/19 Urine Culture - Final, Complete NO GROWTH Assessment/Plan Assessment/Plan Assess & Plan/Chief Complaint Elevated troponin LA to. Congestive heart failure. UTI. Hematuria. Chest x-ray not done yet this morning. BNP 1100 from 1000. UA shows infection. Pleural effusion. . 03/25/19. Elevated troponin LA to her Congestive heart failure. UTI no growth culture. Hematuria resolved. Patient feeling better would like to be discharged today Clinical Quality Measures Admission Status Admission Dx Elevated troponin. Hypertension. Nausea and vomiting. Congestive heart failure. Hypokalemia. Large hiatal hernia. Diabetes. Epigastric pain. Hematuria. DVT/VTE Risk/Contraindication: Risk Factor Score Per Nursin RFS Level Per Nursing on Admit: 4+=Very High Contraindications-Pharm: Other *list below* DEANA ALFONSO DO Mar 25, 2019 07:48
[2019-03-25] MEDS: ARTIFICAL TEARS 0.4 ML UNIT DOSE (REFRESH PLUS) OU SCH (07:56)
[2019-03-25] MEDS: FAMOTIDINE 20MG/2ML IV (PEPCID) IV SCH (07:56)
[2019-03-25] MEDS: GABAPENTIN 600 MG (NEURONTIN) TAB PO SCH ×2 (07:56→15:29)
[2019-03-25 08:00] VITALS: BP 148/82
[2019-03-25] MEDS ORDERED: FUROSEMIDE 40 MG (LASIX) TAB PO SCH (09:00)
[2019-03-25] MEDS ORDERED: AZITHROMYCIN 250 MG TAB (ZITHROMAX) PO SCH (09:00)
--- NOTE | 2019-03-25 09:28 | Progress Note-Cardiology ---
Cardiology SOAP Progress Note Subjective: No cp or palp or syncope Shortness of breath much improved Wishes to go home States will f/u with his loom overhauler, Dr Gamble Objective: I&O/Vital Signs 03/24/19 03/24/19 03/25/19 03/25/19 22:36 22:36 00:00 00:00 Temp 97.1 Pulse 90 73 Resp 18 B/P (MAP) 117/56 (76) Pulse Ox 91 91 91 91 O2 Delivery Nasal Cannula Nasal Cannula Nasal Cannula O2 Flow Rate 2.00 4.00 4.00 03/25/19 03/25/19 03/25/19 03/25/19 01:00 04:00 04:35 05:17 Temp 97.6 Pulse 70 72 Resp 21 B/P (MAP) 121/70 (87) Pulse Ox 91 96 96 O2 Delivery Nasal Cannula Nasal Cannula Nasal Cannula O2 Flow Rate 4.00 4.00 4.00 03/25/19 03/25/19 03/25/19 07:00 07:42 09:00 Pulse 71 Pulse Ox 97 O2 Delivery Nasal Cannula Nasal Cannula O2 Flow Rate 4.00 2.00 03/25/19 00:00 Intake Total 2082 ml Output Total 1850 ml Balance 232 ml Weight (Pounds): 226 Weight (Ounces): 7.0 Weight (Calculated Kilograms): 102.460175 Constitutional: AAO x 3, well-developed, well-nourished Respiratory: No accessory muscle use; chest expansion is symmetric, chest is bilaterally symmetric, lungs clear to auscultation Cardiovascular: regular rate-rhythm; No JVD; S1 and S2, systolic murmur Gastrointestional: No tender; soft, round, audible bowel sounds (hyperactive) Extremities: no lower extremity edema bilateral Neurologic/Psychiatric: grossly intact Skin: No rash on exposed areas, No ulcerations on exposed areas Results/Procedures: Labs Laboratory Tests 03/24/19 10:42: Glucometer 179H 03/24/19 15:55: Glucometer 136H 03/24/19 20:57: Glucometer 153H 03/25/19 05:15: White Blood Count 6.0, Red Blood Count 4.36, Hemoglobin 13.2L, Hematocrit 40, Mean Corpuscular Volume 93, Mean Corpuscular Hemoglobin 30, Mean Corpuscular Hemoglobin Concent 33, Red Cell Distribution Width 14.1, Platelet Count 212, Mean Platelet Volume 9.8, Sodium Level 139, Potassium Level 3.6, Chloride Level 100, Carbon Dioxide Level 25, Anion Gap 14, Blood Urea Nitrogen 12, Creatinine 1.04, Estimat Glomerular Filtration Rate > 60, BUN/Creatinine Ratio 12, Glucose Level 126H, Calcium Level 9.6, B-Type Natriuretic Peptide 159.7H 03/25/19 05:26: Glucometer 146H Microbiology 03/24/19 C. difficile GDH Antigen & Toxins - Final, Complete 03/23/19 Urine Culture - Final, Complete NO GROWTH Laboratory Tests 03/24/19 05:35 03/25/19 05:15 A/P: Assessment: Ac systolic and diastolic CHF Minimal troponin elevation, likely type 2 HI due to CHF Echocardiogram of 03-23-19 showed LVEF 45-50%. Grade 1 diastolic dysfunction. LA severely dilated. Mild MR. AoV sclerosis with mild regurg. 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 Jo February 2011 - pt reports it is followed by Dr. Gamble and he has had it checked recently Reports h/o CAD with stent placement in the early at [facility] in [place], [place] - reports his primary loom overhauler is Dr. Gamble at [facility] Reports h/o AAA repair with graft placement by Dr. Bojorquez at [facility] in [place], [place] in the s or Paroxysmal a-fib which he reports was diagnosed 4 years ago. He states he refuses OAC of any kind other than ASA HTN HLP DM Type 2 GERD Hiatal hernia H/O traumatic brain injury from [place] Plan: * Ok to d/c on current cardiac regimen * I have asked him to f/u with Dr Gamble, his loom overhauler, within the next 1- 2 weeks. He states he will comply JEFRFEY BARRAZA MD FACP [facility] Mar 25, 2019 09:28
[2019-03-25] MEDS ORDERED: FURO-124 PO (11:00)
--- NOTE | 2019-03-25 11:53 | Diagnostic Imaging Report ---
INDICATION: Elevated troponin Portable chest 11:41 a.m. FINDINGS: There is a dual-chamber pacemaker. Heart size and pulmonary vascularity are normal. Lungs are clear. There are no effusions or pneumothoraces. IMPRESSION: Negative chest. Dictated by: Dictated on workstation # [id number]
[2019-03-25 12:00] VITALS: BP 140/58
--- NOTE | 2019-03-25 13:12 | NUR ---
CM/SS. Patient returning to established placement with [facility] under Medicare skilled orders. Physician did not document skilled order in EMR but he asked that SNF call him for those orders. Faxed orders to [facility], prepared packet to accompany patient. Contacted patient's sister, Janine Jones, to update of discharge. Unit RN aware that SNF transport is set up for 1530, facility understands to bring O2 and wheelchair. Janine shared with teletypewriter installer that patient's and only child (daughter) approx 7 years ago within a few months of each other. This was apparently life-changing for patient and a reason why he required placement. 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
[2019-03-25 16:26] VITALS: BP 140/58
--- NOTE | 2019-03-30 07:31 | Discharge Summary ---
Diagnosis/Chief Complaint Date of Admission Mar 22, 2019 at 17:40 Date of Discharge Mar 25, 2019 at 16:16 Discharge Diagnosis Failure with hypoxemia. Digestive heart failure. Gastroenteritis. Nausea and vomiting. Diarrhea. CAD. History of proximal atrial fibrillation. Elevated BNP. Elevated troponin. PR type II. Hypomagnesemia. COPD. Diabetes. Hypertension Reason Hospital Visit [facility]. Patient had epigastric pain, vomiting, diarrhea, and nauseousness. Patient brought out to the emergency room. Chest x-ray shows bilateral pleural effusion. Large hiatal hernia. Congestive heart failure. BNP elevated. Patient states he hurts down below Discharge Summary Consultations Cardiology. Pulmonology Discharge Physical Examination Allergies: Coded Allergies: amoxicillin (Verified Allergy, Unknown, 10/09/17) Vitals & I&Os Vital Signs Date Time Temp Pulse Resp B/P (MAP) Pulse Ox O2 Delivery O2 Flow Rate FiO2 03/25/19 16:26 72 20 140/58 94 Nasal Cannula 2.00 03/25/19 12:00 98.6 Hospital Course Labs (last 24 hrs) Laboratory Tests 03/22/19 15:41: White Blood Count 7.1, Red Blood Count 4.15L, Hemoglobin 12.8L, Hematocrit 38L, Mean Corpuscular Volume 92, Mean Corpuscular Hemoglobin 31, Mean Corpuscular Hemoglobin Concent 33, Red Cell Distribution Width 13.9, Platelet Count 210, Mean Platelet Volume 9.0, Neutrophils (%) (Auto) 70, Lymphocytes (%) (Auto) 20, Monocytes (%) (Auto) 8, Eosinophils (%) (Auto) 2, Basophils (%) (Auto) 1, Neutrophils # (Auto) 5.0, Lymphocytes # (Auto) 1.4, Monocytes # (Auto) 0.6, Eosinophils # (Auto) 0.2, Basophils # (Auto) 0.0, Sodium Level 139, Potassium Level 3.6, Chloride Level 102, Carbon Dioxide Level 26, Anion Gap 11, Blood Urea Nitrogen 7, Creatinine 0.81, Estimat Glomerular Filtration Rate > 60, BUN/Creatinine Ratio 9, Glucose Level 140H, Calcium Level 9.6, Corrected Calcium 9.4, Total Bilirubin 0.7, Aspartate Amino Transf (AST/SGOT) 16, Alanine Aminotransferase (ALT/SGPT) 20, Alkaline Phosphatase 97, Troponin I 0.048H, Total Protein 6.8, Albumin 4.2, Lipase 14 03/22/19 15:47: Prothrombin Time 13.2, INR Comment 1.0, Activated Partial Thromboplast Time 25, Magnesium Level 1.5L, B-Type Natriuretic Peptide 1023.3H 03/22/19 16:08: Urine Color YELLOW, Urine Clarity CLEAR, Urine pH 7, Urine Specific [place] 1.010L, Urine Protein NEGATIVE, Urine Glucose (UA) NEGATIVE, Urine Ketones 2+H, Urine Nitrite NEGATIVE, Urine Bilirubin NEGATIVE, Urine Urobilinogen NORMAL, Urine Leukocyte Esterase NEGATIVE, Urine RBC (Auto) NEGATIVE, Urine RBC NONE, Urine WBC RARE, Urine Squamous Epithelial Cells NONE, Urine Crystals NONE, Urine Bacteria NEGATIVE, Urine Casts NONE, Urine Mucus NEGATIVE, Urine Culture Indicated NO 03/22/19 17:40: Lab Scanned Report Referred Lab Report 03/22/19 20:39: Glucometer 225H 03/22/19 23:43: Troponin I 0.078H 03/23/19 03:10: White Blood Count 6.2, Red Blood Count 3.97L, Hemoglobin 12.1L, Hematocrit 37L, Mean Corpuscular Volume 93, Mean Corpuscular Hemoglobin 31, Mean Corpuscular Hemoglobin Concent 33, Red Cell Distribution Width 14.0, Platelet Count 188, Mean Platelet Volume 9.1, Neutrophils (%) (Auto) 63, Lymphocytes (%) (Auto) 20, Monocytes (%) (Auto) 12, Eosinophils (%) (Auto) 4, Basophils (%) (Auto) 1, Neutrophils # (Auto) 3.9, Lymphocytes # (Auto) 1.3, Monocytes # (Auto) 0.7, Eosinophils # (Auto) 0.3, Basophils # (Auto) 0.1, Sodium Level 140, Potassium Level 3.3L, Chloride Level 102, Carbon Dioxide Level 27, Anion Gap 11, Blood Urea Nitrogen 7, Creatinine 0.84, Estimat Glomerular Filtration Rate > 60, BUN/Creatinine Ratio 8, Glucose Level 113H, Calcium Level 9.1, Corrected Calcium 9.3, Phosphorus Level 3.3, Magnesium Level 2.1, Total Bilirubin 0.8, Aspartate Amino Transf (AST/SGOT) 16, Alanine Aminotransferase (ALT/SGPT) 19, Alkaline Phosphatase 87, Total Protein 6.5, Albumin 3.8 03/23/19 12:26: Glucometer 136H 03/23/19 16:03: Glucometer 168H 03/23/19 18:24: Urine Color REDH, Urine Clarity BLOODYH, Urine pH 8, Urine Specific [place] 1.0 10L, Urine Protein 3+H, Urine Glucose (UA) NEGATIVE, Urine Ketones 2+H, Urine Nitrite NEGATIVE, Urine Bilirubin NEGATIVE, Urine Urobilinogen NORMAL, Urine Leukocyte Esterase 2+H, Urine RBC (Auto) 5+H, Urine RBC TNTCH, Urine WBC 5-10H, Urine Crystals NONE, Urine Bacteria FEWH, Urine Casts NONE, Urine Mucus NEGATIVE, Urine Culture Indicated YES 03/23/19 20:58: Glucometer 132H 03/24/19 05:24: Glucometer 118H 03/24/19 05:35: White Blood Count 6.5, Red Blood Count 4.21L, Hemoglobin 13.0L, Hematocrit 39L, Mean Corpuscular Volume 92, Mean Corpuscular Hemoglobin 31, Mean Corpuscular Hemoglobin Concent 34, Red Cell Distribution Width 13.9, Platelet Count 218, Mean Platelet Volume 9.0, Sodium Level 139, Potassium Level 3.4L, Chloride Level 100, Carbon Dioxide Level 28, Anion Gap 11, Blood Urea Nitrogen 9, Creatinine 1.02, Estimat Glomerular Filtration Rate > 60, BUN/Creatinine Ratio 9, Glucose Level 125H, Calcium Level 9.6, Corrected Calcium 9.5, Magnesium Level 1.9, Total Bilirubin 0.7, Aspartate Amino Transf (AST/SGOT) 20, Alanine Aminotransferase (ALT/SGPT) 20, Alkaline Phosphatase 88, B-Type Natriuretic Peptide 1104.5H, Total Protein 7.0, Albumin 4.1, Triglycerides Level 109, Cholesterol Level 154, LDL Cholesterol Direct 115, VLDL Cholesterol 22, HDL Cholesterol 30L, Thyroid Stimulating Hormone (TSH) 2.03 03/24/19 10:42: Glucometer 179H 03/24/19 15:55: Glucometer 136H 03/24/19 20:57: Glucometer 153H 03/25/19 05:15: White Blood Count 6.0, Red Blood Count 4.36, Hemoglobin 13.2L, Hematocrit 40, Mean Corpuscular Volume 93, Mean Corpuscular Hemoglobin 30, Mean Corpuscular Hemoglobin Concent 33, Red Cell Distribution Width 14.1, Platelet Count 212, Mean Platelet Volume 9.8, Sodium Level 139, Potassium Level 3.6, Chloride Level 100, Carbon Dioxide Level 25, Anion Gap 14, Blood Urea Nitrogen 12, Creatinine 1.04, Estimat Glomerular Filtration Rate > 60, BUN/Creatinine Ratio 12, Glucose Level 126H, Calcium Level 9.6, B-Type Natriuretic Peptide 159.7H 03/25/19 05:26: Glucometer 146H 03/25/19 11:13: Glucometer 183H Microbiology 03/24/19 C. difficile GDH Antigen & Toxins - Final, Complete 03/23/19 Urine Culture - Final, Complete NO GROWTH Laboratory Tests 03/22/19 15:41 03/23/19 03:10 03/24/19 05:35 03/25/19 05:15 Pending Labs Microbiology Date/Time Source Procedure Growth Status 03/24/19 08:00 Stool C. difficile GDH Antigen & Toxins - Final Complete 03/23/19 18:24 Urine Clean Catch Urine Culture - Final NO GROWTH Complete Laboratory Tests 03/22/19 15:41: White Blood Count 7.1, Red Blood Count 4.15, Hemoglobin 12.8, Hematocrit 38, Mean Corpuscular Volume 92, Mean Corpuscular Hemoglobin 31, Mean Corpuscular Hemoglobin Concent 33, Red Cell Distribution Width 13.9, Platelet Count 210, Mean Platelet Volume 9.0, Neutrophils (%) (Auto) 70, Lymphocytes (%) (Auto) 20, Monocytes (%) (Auto) 8, Eosinophils (%) (Auto) 2, Basophils (%) (Auto) 1, Neutrophils # (Auto) 5.0, Lymphocytes # (Auto) 1.4, Monocytes # (Auto) 0.6, Eosinophils # (Auto) 0.2, Basophils # (Auto) 0.0, Sodium Level 139, Potassium Level 3.6, Chloride Level 102, Carbon Dioxide Level 26, Anion Gap 11, Blood Urea Nitrogen 7, Creatinine 0.81, Estimat Glomerular Filtration Rate > 60, BUN/Creatinine Ratio 9, Glucose Level 140, Calcium Level 9.6, Corrected Calcium 9.4, Total Bilirubin 0.7, Aspartate Amino Transf (AST/SGOT) 16, Alanine Aminotransferase (ALT/SGPT) 20, Alkaline Phosphatase 97, Troponin I 0.048, Total Protein 6.8, Albumin 4.2, Lipase 14 03/22/19 15:47: Prothrombin Time 13.2, INR Comment 1.0, Activated Partial Thromboplast Time 25, Magnesium Level 1.5, B-Type Natriuretic Peptide 1023.3 03/22/19 16:08: Urine Color YELLOW, Urine Clarity CLEAR, Urine pH 7, Urine Specific [place] 1.010, Urine Protein NEGATIVE, Urine Glucose (UA) NEGATIVE, Urine Ketones 2+, Urine Nitrite NEGATIVE, Urine Bilirubin NEGATIVE, Urine Urobilinogen NORMAL, Urine Leukocyte Esterase NEGATIVE, Urine RBC (Auto) NEGATIVE, Urine RBC NONE, Urine WBC RARE, Urine Squamous Epithelial Cells NONE, Urine Crystals NONE, Urine Bacteria NEGATIVE, Urine Casts NONE, Urine Mucus NEGATIVE, Urine Culture Indicated NO 03/22/19 17:40: Lab Scanned Report Referred Lab Report 03/22/19 20:39: Glucometer 225 03/22/19 23:43: Troponin I 0.078 03/23/19 03:10: White Blood Count 6.2, Red Blood Count 3.97, Hemoglobin 12.1, Hematocrit 37, Mean Corpuscular Volume 93, Mean Corpuscular Hemoglobin 31, Mean Corpuscular Hem oglobin Concent 33, Red Cell Distribution Width 14.0, Platelet Count 188, Mean Platelet Volume 9.1, Neutrophils (%) (Auto) 63, Lymphocytes (%) (Auto) 20, Monocytes (%) (Auto) 12, Eosinophils (%) (Auto) 4, Basophils (%) (Auto) 1, Neutrophils # (Auto) 3.9, Lymphocytes # (Auto) 1.3, Monocytes # (Auto) 0.7, Eosinophils # (Auto) 0.3, Basophils # (Auto) 0.1, Sodium Level 140, Potassium Level 3.3, Chloride Level 102, Carbon Dioxide Level 27, Anion Gap 11, Blood Urea Nitrogen 7, Creatinine 0.84, Estimat Glomerular Filtration Rate > 60, BUN/Creatinine Ratio 8, Glucose Level 113, Calcium Level 9.1, Corrected Calcium 9.3, Phosphorus Level 3.3, Magnesium Level 2.1, Total Bilirubin 0.8, Aspartate Amino Transf (AST/SGOT) 16, Alanine Aminotransferase (ALT/SGPT) 19, Alkaline Phosphatase 87, Total Protein 6.5, Albumin 3.8 03/23/19 12:26: Glucometer 136 03/23/19 16:03: Glucometer 168 03/23/19 18:24: Urine Color RED, Urine Clarity BLOODY, Urine pH 8, Urine Specific [place] 1.010, Urine Protein 3+, Urine Glucose (UA) NEGATIVE, Urine Ketones 2+, Urine Nitrite NEGATIVE, Urine Bilirubin NEGATIVE, Urine Urobilinogen NORMAL, Urine Leukocyte Esterase 2+, Urine RBC (Auto) 5+, Urine RBC TNTC, Urine WBC 5-10, Urine Crystals NONE, Urine Bacteria FEW, Urine Casts NONE, Urine Mucus NEGATIVE, Urine Culture Indicated YES 03/23/19 20:58: Glucometer 132 03/24/19 05:24: Glucometer 118 03/24/19 05:35: White Blood Count 6.5, Red Blood Count 4.21, Hemoglobin 13.0, Hematocrit 39, Mean Corpuscular Volume 92, Mean Corpuscular Hemoglobin 31, Mean Corpuscular Hemoglobin Concent 34, Red Cell Distribution Width 13.9, Platelet Count 218, Mean Platelet Volume 9.0, Sodium Level 139, Potassium Level 3.4, Chloride Level 100, Carbon Dioxide Level 28, Anion Gap 11, Blood Urea Nitrogen 9, Creatinine 1.02, Estimat Glomerular Filtration Rate > 60, BUN/Creatinine Ratio 9, Glucose Level 125, Calcium Level 9.6, Corrected Calcium 9.5, Magnesium Level 1.9, Total Bilirubin 0.7, Aspartate Amino Transf (AST/SGOT) 20, Alanine Aminotransferase (ALT/SGPT) 20, Alkaline Phosphatase 88, B-Type Natriuretic Peptide 1104.5, Total Protein 7.0, Albumin 4.1, Triglycerides Level 109, Cholesterol Level 154, LDL Cholesterol Direct 115, VLDL Cholesterol 22, HDL Cholesterol 30, Thyroid Stimulating Hormone (TSH) 2.03 03/24/19 10:42: Glucometer 179 03/24/19 15:55: Glucometer 136 03/24/19 20:57: Glucometer 153 03/25/19 05:15: White Blood Count 6.0, Red Blood Count 4.36, Hemoglobin 13.2, Hematocrit 40, Mean Corpuscular Volume 93, Mean Corpuscular Hemoglobin 30, Mean Corpuscular Hemoglobin Concent 33, Red Cell Distribution Width 14.1, Platelet Count 212, Mean Platelet Volume 9.8, Sodium Level 139, Potassium Level 3.6, Chloride Level 100, Carbon Dioxide Level 25, Anion Gap 14, Blood Urea Nitrogen 12, Creatinine 1.04, Estimat Glomerular Filtration Rate > 60, BUN/Creatinine Ratio 12, Glucose Level 126, Calcium Level 9.6, B-Type Natriuretic Peptide 159.7 03/25/19 05:26: Glucometer 146 03/25/19 11:13: Glucometer 183 Discussion & Recommendations Patient discharged feeling better. [facility] to [facility] Home Medications: Active Scripts Active Lasix (Furosemide) 40 Mg Tablet 40 Mg PO DAILY 30 Days Reported Systane 0.3-0.4% Eye Drops (Propylene Glycol/Peg 400) 15 Ml Drops 1 Drop OU BID Sotalol (Sotalol HCl) 80 Mg Tablet 80 Mg PO BID HOLD FOR DBP<100 OR PULSE <60 Mirtazapine 7.5 Mg Tablet 7.5 Mg PO HS Ondansetron Odt (Ondansetron) 4 Mg Tab.rapdis 4 Mg PO Q4H PRN Gabapentin 600 Mg Tablet 600 Mg PO TID Metformin HCl 500 Mg Tablet 500 Mg PO BID Lumigan (Bimatoprost) 2.5 Ml Drops 1 Drop OU HS Januvia (Sitagliptin Phosphate) 100 Mg Tablet 100 Mg PO DAILY Fluticasone Propionate 16 Gm [place].susp 2 Sprays NS DAILY PRN Albuterol Sulfate 2.5 Mg/3 Ml Vial.neb 2.5 Mg NEB QID Albuterol Sulfate 2.5 Mg/3 Ml Vial.neb 2.5 Mg NEB Q6H PRN Vitamin B-12 (Cyanocobalamin (Vitamin B-12)) 1,000 Mcg Tab.subl 1,000 Mcg SL DAILY Tylenol Extra Strength (Acetaminophen) 500 Mg Tablet 1,000 Mg PO Q4H PRN Omeprazole 40 Mg Capsule.dr 40 Mg PO BID Melatonin 3 Mg Tablet 3 Mg PO HS Lipitor (Atorvastatin Calcium) 10 Mg Tablet 10 Mg PO HS Flomax (Tamsulosin HCl) 0.4 Mg Cap 0.4 Mg PO HS Carafate (Sucralfate) 1 Gm Tablet 1 Gm PO QID Instructions to patient/family Please see electronic discharge instructions given to patient. Clinical Quality Measures DVT/VTE Risk/Contraindication: Risk Factor Score Per Nursin RFS Level Per Nursing on Admit: 4+=Very High Contraindications-Pharm: Other *list below* DEANA ALFONSO DO Mar 30, 2019 07:31
== END 2019-03-25 16:16 | DRG 281 ==
LOC: EDUNIT# 14:59 → ER 15:00 → ICU 17:40 → 4TH 03-23 14:30
PROVIDERS: ADMIT Family Medicine; ATTEND Internal Medicine
DX: I11.0 Hypertensive heart disease with heart failure (principal); I50.41 Acute combined systolic (congestive) and diastolic (congestive) heart failure; I21.A1 Myocardial infarction type 2; N39.0 Urinary tract infection, site not specified; R06.03 Acute respiratory distress; R09.02 Hypoxemia; K52.9 Noninfective gastroenteritis and colitis, unspecified; I25.10 Atherosclerotic heart disease of native coronary artery without angina pectoris; I48.0 Paroxysmal atrial fibrillation; I10 Essential (primary) hypertension; J44.9 Chronic obstructive pulmonary disease, unspecified; E11.9 Type 2 diabetes mellitus without complications; E78.00 Pure hypercholesterolemia, unspecified; K21.9 Gastro-esophageal reflux disease without esophagitis; K44.9 Diaphragmatic hernia without obstruction or gangrene; I08.0 Rheumatic disorders of both mitral and aortic valves; I27.20 Pulmonary hypertension, unspecified; R31.9 Hematuria, unspecified; F01.50 Vascular dementia, unspecified severity, without behavioral disturbance, psychotic disturbance, mood disturbance, and anxiety; N40.0 Benign prostatic hyperplasia without lower urinary tract symptoms; E86.9 Volume depletion, unspecified; G89.29 Other chronic pain; R53.1 Weakness; F41.9 Anxiety disorder, unspecified; F32.9 Major depressive disorder, single episode, unspecified; Z95.0 Presence of cardiac pacemaker; Z95.5 Presence of coronary angioplasty implant and graft; Z87.820 Personal history of traumatic brain injury; Z86.73 Personal history of transient ischemic attack (TIA), and cerebral infarction without residual deficits; Z79.84 Long term (current) use of oral hypoglycemic drugs
CPT/HCPCS: 36415; 71045; 71260; 74177; 80048; 80053; 80061; 81000; 82962; 83690; 83735; 83880; 84100; 84443; 84484; 85025; 85027; 85610; 85730; 87088; 87324; 87449; 93005; 93041; 93306; 94640; 94760

== ENCOUNTER → 2019-05-08 | Outpatient (CLI) | payer MEDICARE, MEDICAID ==
[~2019-05-08] MED LIST changes: +ALBU2.5V4 NEB; +BIMA2.5D4 OU; +DICL100G18 TD; +FLUT16SP22 NS; +FURO-124 PO; +GBPN600T PO; +METF-397 PO; +MIRT7.5T8 PO; +ONDA4TAB11 PO; +PROP15DR OU; +SOTA80TA62 PO
--- NOTE | 2019-05-08 17:55 | Diagnostic Imaging Report ---
EXAMINATION: PA and lateral chest at 11:37 a.m. INDICATION: Difficulty breathing. FINDINGS: This exam is less than optimal as the patient is rotated. Allowing for this technical factor, the heart size is within normal limits and stable when compared to the prior exam of 03/25/2019. The left-sided pacemaker seen previously is again evident and no different. The lungs are generally clear. There is no sign of failure, pneumonia, or pleural effusion to indicate an acute abnormality. The mediastinum is not widened. The hiatal hernia evident on the prior study is again visualized and no different. The osseous structures are intact. Surgical screws are seen overlying the right humeral head. IMPRESSION: There is no evidence for an acute cardiopulmonary abnormality on this suboptimal exam. Dictated by: Dictated on workstation # [id number]
== END ==
LOC: RAD 11:22
PROVIDERS: ATTEND Family Medicine
DX: J18.9 Pneumonia, unspecified organism (principal); Z95.0 Presence of cardiac pacemaker
CPT/HCPCS: 71046

== ENCOUNTER 2019-06-25 20:56 | Outpatient (CLI) | payer MEDICARE, MEDICAID | END 2019-06-26 07:00 | disposition home or self-care (01) | LOC: SLEEP 20:56 | PROVIDERS: ATTEND Family Medicine | DX: G47.33 Obstructive sleep apnea (adult) (pediatric) (principal); G47.36 Sleep related hypoventilation in conditions classified elsewhere; I10 Essential (primary) hypertension; Z86.73 Personal history of transient ischemic attack (TIA), and cerebral infarction without residual deficits | CPT/HCPCS: 95810 ==

== ENCOUNTER → 2019-10-16 | Outpatient (CLI) | payer MEDICARE, MEDICAID ==
[~2019-10-16] MED LIST changes: -MELA3TAB PO; +MELA3TAB65 PO; +OMEP40CA27 PO; -OMEP40CA36 PO; -TAMS0.4C98 PO; +TMSL.4C PO
== END ==
LOC: CARD 09:49
PROVIDERS: ATTEND Internal Medicine Cardiovascular Disease
DX: I08.0 Rheumatic disorders of both mitral and aortic valves (principal); I48.0 Paroxysmal atrial fibrillation
CPT/HCPCS: 93306

== ENCOUNTER → 2020-02-29 | Outpatient (CLI) | payer MEDICARE, MEDICAID ==
[~2020-02-29] MED LIST changes: +MELA3TAB39 PO; -MELA3TAB65 PO
== END ==
LOC: CARD 08:28
PROVIDERS: ATTEND Internal Medicine Cardiovascular Disease
DX: I48.0 Paroxysmal atrial fibrillation (principal); I51.7 Cardiomegaly; I34.0 Nonrheumatic mitral (valve) insufficiency
CPT/HCPCS: 93306

== ENCOUNTER → 2020-04-18 | Outpatient (CLI) | payer MEDICARE, MEDICAID | LOC: LABNPT 06:43 | PROVIDERS: ATTEND Nurse Practitioner Family | DX: Z53.9 Procedure and treatment not carried out, unspecified reason (principal) ==

== ENCOUNTER → 2020-07-20 | Outpatient (CLI) | payer MEDICARE, MEDICAID ==
[~2020-07-20] MED LIST changes: +ALBU18HF2 INH; +BISA5TAB8 PO; +BUDE10.22 INH; +CYAN-41 PO; +FURO40TA4 PO; +GUAI100L13 PO; +MAGN400O7 PO; +MINE3.5O2 OU; +MIRT15TA6 PO; +OXYM30SP25 NS; +PROP10DR2 OU
--- NOTE | 2020-07-20 12:34 | Diagnostic Imaging Report ---
INDICATION: Neck pain. Time of exam 12:10 PM Curvature and alignment of the cervical spine is normal. There is degenerative disc disease C5-C6 and C6-C7 levels with disc space narrowing and marginal osteophyte formation. No fracture is seen. The prevertebral tissues are normal. Odontoid appears intact. IMPRESSION: Lower cervical spondylosis. No acute bony abnormality is detected. Dictated by: Dictated on workstation # [id number]
== END ==
LOC: RAD 11:33
PROVIDERS: ATTEND Family Medicine
DX: M47.812 Spondylosis without myelopathy or radiculopathy, cervical region (principal); W19.XXXA Unspecified fall, initial encounter
CPT/HCPCS: 72040

== ENCOUNTER 2020-08-05 10:31 | Emergency (ER) | payer MEDICARE, MEDICAID ==
[~2020-08-05] VITALS: Ht 185.5 cm; Wt 104.3 kg
--- NOTE | 2020-08-05 11:04 | ED General ---
General Stated Complaint: BLACK STOOL Source of Information: Patient, Skilled Nursing Records Exam Limitations: No Limitations History of Present Illness Date Seen by Provider: Aug 05, 2020 Time Seen by Provider: 11:02 Initial Comments To ER with c/o dark stools and concern for GI bleed. He is from [facility] and [facility]. Only blood thinner is a baby aspirin. He reports feeling generally weak. States he did drink some pepto Bismol yesterday but Im not sure if this is true as I dont see it on his medication list. He deneis abdominal pain. Timing/Duration: 1-2 Days Severity: Moderate Associated Systoms: Denies Symptoms Allergies and Home Medications Allergies Coded Allergies: amoxicillin (Verified Allergy, Unknown, 10/09/17) Home Medications Acetaminophen 500 Mg Tablet, 1,000 MG PO Q4H PRN for PAIN-MILD OR TEMPATURE, ( Reported) Albuterol Sulfate 18 Gm Hfa.aer.ad, 2 PUFF INH Q6H PRN for COPD, (Reported) Atorvastatin Calcium 10 Mg Tablet, 10 MG PO HS, (Reported) Bimatoprost 2.5 Ml Drops, 1 DROP OU BID, (Reported) Bisacodyl 5 Mg Tablet.dr, 5 MG PO DAILY PRN for CONSTIPATION-4TH LINE, (Reported) Budesonide/Formoterol Fumarate 10.2 Gm Hfa.aer.ad, 2 PUFF INH BID, (Reported) Cyanocobalamin (Vitamin B-12) 1,000 Mcg Tablet, 1,000 MCG PO DAILY, (Reported) Fluticasone Propionate 16 Gm [place].susp, 2 SPRAYS NS DAILY PRN for CONGESTION, (Reported) Furosemide 40 Mg Tablet, 40 MG PO DAILY, (Reported) Gabapentin 600 Mg Tablet, 600 MG PO TID, (Reported) Guaifenesin 100 Mg/5 Ml Liquid, 10 ML PO Q4H PRN for COUGH, (Reported) Magnesium Hydroxide 400 Mg/5 Ml Oral.susp, 30 ML PO DAILY PRN for CONSTIPATION- 7TH LINE, (Reported) Melatonin 3 Mg Tablet, 3 MG PO HS, (Reported) Metformin HCl 500 Mg Tablet, 500 MG PO BID, (Reported) Mineral Oil/Petrolatum,White 3.5 Gm Oint...g., 1 APPLIC OU HS, (Reported) Mirtazapine 15 Mg Tablet, 7.5 MG PO HS, (Reported) Omeprazole 40 Mg Capsule.dr, 40 MG PO DAILY, (Reported) Ondansetron 4 Mg Tab.rapdis, 4 MG PO Q4H PRN for NAUSEA/VOMITING-1ST LINE, (Reported) Oxymetazoline HCl 30 Ml [place], 1 SPRAY NS HS, (Reported) SPRAY IN LEFT NOSTRIL Propylene Glycol/Peg 400 10 Ml Drops, 1 DROP OU BID, (Reported) Sitagliptin Phosphate 100 Mg Tablet, 100 MG PO DAILY, (Reported) Sotalol HCl 80 Mg Tablet, 80 MG PO BID, (Reported) HOLD FOR DBP <100 OR PULSE <60. NOTIFY PHYSICIAN IF HELD FOR 3 CONSECUTIVE DAYS Tamsulosin HCl 0.4 Mg Cap, 0.4 MG PO HS, (Reported) Patient Home Medication List Home Medication List Reviewed: Yes Review of Systems Review of Systems Constitutional: see HPI, weakness EENTM: see HPI Respiratory: no symptoms reported Cardiovascular: no symptoms reported Gastrointestinal: melena Genitourinary: no symptoms reported Musculoskeletal: no symptoms reported Skin: no symptoms reported Psychiatric/Neurological: No Symptoms Reported Hematologic/Lymphatic: No Symptoms Reported Immunological/Allergic: no symptoms reported Past Nhdacep-Zehyfb-Szayvs Hx Patient Social History Type Used: Cigarettes 2nd Hand Smoke Exposure: Yes Recent Hopitalizations: No Immunizations Up To Date Date of Influenza Vaccine: Sep 09, 2017 Seasonal Allergies Seasonal Allergies: No Past Medical History Surgeries: Yes Pacemaker Respiratory: Yes (O2 AT AT NIGHT) COPD Currently Using CPAP: No Currently Using BIPAP: No Cardiac: Yes Coronary Artery Disease, High Cholesterol, Hypertension Neurological: Yes Dementia, Stroke, TIA Genitourinary: Yes Benign Prostatic Hyperpl Gastrointestinal: Yes Gastrointestinal Bleed, Hiatal Hernia Musculoskeletal: Yes (CHRONIC PAIN; GENERALIZED WEAKNESS; UNSTEADY GAIT) Chronic Back Pain Endocrine: Yes Diabetes, Non-Insulin dep HEENT: Yes Loss of Vision: Right Hearing Impairment: Hard of Hearing Cancer: No Psychosocial: Yes Anxiety, Depression Integumentary: No Recent Skin Changes Blood Disorders: No Adverse Reaction/Blood Tranf: No Family Medical History Unknown family medical history No Pertinent Family Hx Physical Exam Vital Signs Vital Signs - First Documented 08/05/20 10:51 Temp 35.6 Pulse 65 Resp 18 B/P (MAP) 138/86 (103) Pulse Ox 95 O2 Delivery Room Air Capillary Refill : Height, Weight, BMI Height: 6'1.00" Weight: 226lbs. 7.0oz. 102.238433sb; 29.75 BMI Method:Stated General Appearance: No Apparent Distress, WD/WN, Chronically ill Eyes: Bilateral Eye Normal Inspection, Bilateral Eye PERRL, Bilateral Eye EOMI Neck: Full Range of Motion, Normal Inspection Respiratory: Normal Breath Sounds, No Accessory Muscle Use, No Respiratory Distress Cardiovascular: Regular Rate, Rhythm, Normal Peripheral Pulses Gastrointestinal: Normal Bowel Sounds, Non Tender, Soft Extremity: Normal Capillary Refill, Normal Inspection Neurologic/Psychiatric: Alert Skin: Normal Color, Warm/Dry Comments has a liquid stool sample with him from [facility]. Bedside occult blood test is negative. Progress/Results/Core Measures Suspected Sepsis SIRS Temperature: Pulse: Respiratory Rate: Blood Pressure / Mean: Results/Orders Lab Results My Orders Medications Given in ED Vital Signs/I&O Capillary Refill : Departure Communication (Admissions) 1151-given his intermittent dyspnea and malaise, nonspecific symptoms an elderly I did add a troponin which is a little bump. He denies chest pain. I'd like to keep him for a 2 hour repeat troponin. He denies any chest pain or shortness of breath but he does complain that he has been unable to sleep much lately and would like something to help him sleep. Again, he has a history of dementia and I'm not sure how accurate this is. 1354-repeat troponin is unchanged. Patient denies any chest pain or shortness of breath. He was referred to cardiothoracic surgery in May of this year due to severe multivessel disease possible need for CABG. That was deemed inappropriate given his dementia. There would be no benefit to staying here, he can go home and continue his antiplatelet medication and return for any concerns. Impression Primary Impression: Dark stools Additional Impressions: Dementia Weakness Disposition: HOME, SELF-CARE Condition: Stable Departure-Patient Inst. Decision time for Depature: 13:55 Referrals: DEANA ALFONSO DO (PCP/Family) Primary Care Physician Patient Instructions: No Instuctions Given Add. Discharge Instructions: 1. Continue current medications return to ER for any concerns. follow up with dr alfonso next week. Copy Copies To 1: DEANA ALFONSO PETER J APRN Aug 05, 2020 11:04
[2020-08-05 11:06] LABS: BASOPHILS % (AUTO) 0 % (0-10); EOSINOPHILS % (AUTO) 1 % (0-10); HEMATOCRIT 37 % (40-54); HEMOGLOBIN 12.3 g/dL (13.3-17.7); LYMPHOCYTES # (AUTO) 0.9 10^3/uL (1.0-4.0); LYMPHOCYTES % (AUTO) 16 % (12-44); MEAN CORPUSCULAR HEMOGLOBIN 31 pg (25-34); MEAN CORPUSCULAR HGB CONC 33 g/dL (32-36); MEAN CORPUSCULAR VOLUME 94 fL (80-99); MEAN PLATELET VOLUME 8.9 fL (9.0-12.2); MONOCYTES # (AUTO) 0.5 10^3/uL (0.0-1.0); MONOCYTES % (AUTO) 9 % (0-12); NEUTROPHILS # (AUTO) 4.3 10^3/uL (1.8-7.8); NEUTROPHILS % (AUTO) 74 % (42-75); PLATELET COUNT 195 10^3/uL (130-400); WHITE BLOOD COUNT 5.8 10^3/uL (4.3-11.0)
[2020-08-05 11:20] LABS: INR 1.1 (0.8-1.4); PROTHROMBIN TIME PATIENT 14.1 SEC (12.2-14.7)
[2020-08-05 11:28] LABS: ALANINE AMINOTRANSFERASE 31 U/L (0-55); ALBUMIN 4.2 GM/DL (3.2-4.5); ALKALINE PHOSPHATASE 86 U/L (40-136); BILIRUBIN,TOTAL 0.7 MG/DL (0.1-1.0); BUN/CREATININE RATIO 17; CALCIUM 9.2 MG/DL (8.5-10.1); CARBON DIOXIDE 27 MMOL/L (21-32); CHLORIDE 96 MMOL/L (98-107); CREATININE SERUM 1.03 MG/DL (0.60-1.30); GFR ESTIMATED > 60; GLUCOSE 156 MG/DL (70-105); POTASSIUM 3.1 MMOL/L (3.6-5.0); SODIUM 139 MMOL/L (135-145); TOTAL PROTEIN 7.9 GM/DL (6.4-8.2)
[2020-08-05] MEDS ORDERED: NS IV 500 ML 500 ML ONE (11:55)
[2020-08-05] MEDS ORDERED: NS IV 500 ML 500 ML IV SCH (12:00)
[2020-08-05] MEDS ORDERED: diphenhydrAMINE 50 MG/ML INJ (BENADRYL) IVP ONE (12:00)
--- NOTE | 2020-08-05 13:00 | NUR ---
Repeat troponin sent to lab at this time.
[2020-08-05 14:30] VITALS: BP 113/74
== END 2020-08-05 14:30 | disposition home or self-care (01) ==
LOC: EDUNIT# 10:31 → ER 10:34
DX: K92.1 Melena (principal); F03.90 Unspecified dementia, unspecified severity, without behavioral disturbance, psychotic disturbance, mood disturbance, and anxiety; R53.1 Weakness; J44.9 Chronic obstructive pulmonary disease, unspecified; E78.00 Pure hypercholesterolemia, unspecified; E11.9 Type 2 diabetes mellitus without complications; I10 Essential (primary) hypertension; F32.9 Major depressive disorder, single episode, unspecified; F41.9 Anxiety disorder, unspecified; Z95.0 Presence of cardiac pacemaker; Z86.73 Personal history of transient ischemic attack (TIA), and cerebral infarction without residual deficits; Z77.22 Contact with and (suspected) exposure to environmental tobacco smoke (acute) (chronic); Z79.84 Long term (current) use of oral hypoglycemic drugs; Z88.1 Allergy status to other antibiotic agents
CPT/HCPCS: 36415; 80053; 82274; 83880; 84484; 85025; 85610

== ENCOUNTER → 2020-08-06 | Outpatient (CLI) | payer MEDICARE, MEDICAID, OTHER | LOC: GIR 16:02 | PROVIDERS: ATTEND Family Medicine | DX: U07.1 COVID-19 (principal) | CPT/HCPCS: 87635 ==

== ENCOUNTER 2020-10-23 19:13 | Emergency (ER) | payer MEDICARE, MEDICAID ==
[~2020-10-23] VITALS: Ht 177 cm; Wt 90.0 kg
[2020-10-23 19:35] LABS: BASOPHILS # (AUTO) 0.1 10^3/uL (0.0-0.1); BASOPHILS % (AUTO) 1 % (0-10); EOSINOPHILS # (AUTO) 0.4 10^3/uL (0.0-0.3); EOSINOPHILS % (AUTO) 4 % (0-10); HEMATOCRIT 39 % (40-54); HEMOGLOBIN 12.4 g/dL (13.3-17.7); LYMPHOCYTES # (AUTO) 2.5 10^3/uL (1.0-4.0); LYMPHOCYTES % (AUTO) 26 % (12-44); MEAN CORPUSCULAR HEMOGLOBIN 30 pg (25-34); MEAN CORPUSCULAR HGB CONC 32 g/dL (32-36); MEAN CORPUSCULAR VOLUME 95 fL (80-99); MEAN PLATELET VOLUME 9.8 fL (9.0-12.2); MONOCYTES # (AUTO) 0.9 10^3/uL (0.0-1.0); MONOCYTES % (AUTO) 9 % (0-12); NEUTROPHILS # (AUTO) 5.7 10^3/uL (1.8-7.8); NEUTROPHILS % (AUTO) 59 % (42-75); PLATELET COUNT 259 10^3/uL (130-400); WHITE BLOOD COUNT 9.7 10^3/uL (4.3-11.0)
--- NOTE | 2020-10-23 19:36 | ED Abdominal Pain ---
General Stated Complaint: CONSTIPATION Source of Information: Patient, [facility]sp Records History of Present Illness Date Seen by Provider: Oct 23, 2020 Time Seen by Provider: 19:18 Initial Comments PT ARRIVES VIA POV FROM [facility] C/O ABDOMINAL PAIN --STATES HE HAS "SHOOTING PAINS" ALL OVER HIS ABDOMEN STATES NO BM FOR 5-6 DAYS NO RELIEF WITH COLACE, BISACODYL, MAG CITRATE AND MILK OF MAGNESIA. PT HAS REFUSED SUPPOSITORIES OR ENEMAS, PER SENIOR CARE STAFF PT DENIES NAUSEA OR VOMITING PT ATE BREAKFAST, BUT DID NOT HAVE AN APPETITE AT LUNCH OR DINNER PT IS DRINKING FLUIDS WITHOUT DIFFICULTY PT DENIES ANY DIFFICULTY URINATING. NO FEVER PT STATES HE HAS HAD ABDOMINAL AORTIC ANEURYSM REPAIR HAS HAD CHOLECYSTECTOMY PCP: DR. ALFONSO Allergies and Home Medications Allergies Coded Allergies: amoxicillin (Verified Allergy, Unknown, 10/09/17) Home Medications Acetaminophen 500 Mg Tablet, 1,000 MG PO Q4H PRN for PAIN-MILD OR TEMPATURE, (Reported) Albuterol Sulfate 18 Gm Hfa.aer.ad, 2 PUFF INH Q6H PRN for COPD, (Reported) Atorvastatin Calcium 10 Mg Tablet, 10 MG PO HS, (Reported) Bimatoprost 2.5 Ml Drops, 1 DROP OU BID, (Reported) Bisacodyl 5 Mg Tablet.dr, 5 MG PO DAILY PRN for CONSTIPATION-4TH LINE, (Reported) Bisacodyl 10 Mg Supp.rect, 10 MG RC PRN Prescribed by: JETT SORTO on 10/23/202020 Budesonide/Formoterol Fumarate 10.2 Gm Hfa.aer.ad, 2 PUFF INH BID, (Reported) Cyanocobalamin (Vitamin B-12) 1,000 Mcg Tablet, 1,000 MCG PO DAILY, (Reported) Fluticasone Propionate 16 Gm [place].susp, 2 SPRAYS NS DAILY PRN for CONGESTION, (Reported) Furosemide 40 Mg Tablet, 40 MG PO DAILY, (Reported) Gabapentin 600 Mg Tablet, 600 MG PO TID, (Reported) Guaifenesin 100 Mg/5 Ml Liquid, 10 ML PO Q4H PRN for COUGH, (Reported) Magnesium Hydroxide 400 Mg/5 Ml Oral.susp, 30 ML PO DAILY PRN for CONSTIPATION- 7TH LINE, (Reported) Melatonin 3 Mg Tablet, 3 MG PO HS, (Reported) Metformin HCl 500 Mg Tablet, 500 MG PO BID, (Reported) Mineral Oil/Petrolatum,White 3.5 Gm Oint...g., 1 APPLIC OU HS, (Reported) Mirtazapine 15 Mg Tablet, 7.5 MG PO HS, (Reported) Na Phos,M-B/Na Phos,Di-Ba 133 Ml Enema, 133 ML RC PRN Prescribed by: JETT SORTO on 10/23/202020 Omeprazole 40 Mg Capsule.dr, 40 MG PO DAILY, (Reported) Ondansetron 4 Mg Tab.rapdis, 4 MG PO Q4H PRN for NAUSEA/VOMITING-1ST LINE, (Reported) Oxymetazoline HCl 30 Ml [place], 1 SPRAY NS HS, (Reported) SPRAY IN LEFT NOSTRIL Polyethylene Glycol 3350 17 Gm Powd.pack, 17 GM PO DAILY PRN Prescribed by: JETT SORTO on 10/23/202020 Propylene Glycol/Peg 400 10 Ml Drops, 1 DROP OU BID, (Reported) Sitagliptin Phosphate 100 Mg Tablet, 100 MG PO DAILY, (Reported) Sotalol HCl 80 Mg Tablet, 80 MG PO BID, (Reported) HOLD FOR DBP <100 OR PULSE <60. NOTIFY PHYSICIAN IF HELD FOR 3 CONSECUTIVE DAYS Tamsulosin HCl 0.4 Mg Cap, 0.4 MG PO HS, (Reported) Patient Home Medication List Home Medication List Reviewed: Yes Review of Systems Review of Systems Constitutional: No fever; other (DECREASED APPETITE) Respiratory: No Symptoms Reported Cardiovascular: No Symptoms Reported Gastrointestinal: See HPI, Abdominal Pain, Constipated; Denies Diarrhea, Denies Nausea; Poor Appetite; Denies Vomiting Genitourinary: No Symptoms Reported Past Nbqmpxj-Xzoqjp-Egzzuo Hx Past Med/Social Hx: Reviewed and Corrections made Patient Social History Type Used: Cigarettes 2nd Hand Smoke Exposure: Yes Recent Hopitalizations: No Immunizations Up To Date Date of Influenza Vaccine: Sep 09, 2017 Seasonal Allergies Seasonal Allergies: No Past Medical History Surgeries: Yes Abdominal, Gallbladder, Orthopedic, Pacemaker, Vascular Surgery Respiratory: Yes (O2 AT HS;PULMONARY HTN;PLEURAL EFFUSION;COVID-19 PNEUMONIA 07/2020) Pneumonia, COPD Currently Using CPAP: No Currently Using BIPAP: No Cardiac: Yes (PACEMAKER;AAA REPAIR;NSTEMI) Aneurysm, Coronary Artery Disease, Heart Attack, High Cholesterol, Hypertension Neurological: Yes (VASCULAR DEMENTIA) Dementia, Stroke, TIA Genitourinary: Yes Benign Prostatic Hyperpl, Bladder Infection Gastrointestinal: Yes Gastroesophageal Reflux, Gastrointestinal Bleed, Hiatal Hernia Musculoskeletal: Yes (CHRONIC PAIN; GENERALIZED WEAKNESS; UNSTEADY GAIT;L4 LAMINECTOMY) Chronic Back Pain Endocrine: Yes Diabetes, Non-Insulin dep HEENT: Yes Glaucoma Loss of Vision: Right Hearing Impairment: Hard of Hearing Cancer: No Psychosocial: Yes (SUICIDAL IDEATION; ) Sleep Difficulties, Anxiety, Depression Integumentary: No Blood Disorders: No Adverse Reaction/Blood Tranf: No Family Medical History Unknown family medical history No Pertinent Family Hx PAST SURGICAL HISTORY: -PACEMAKER -ABDOMINAL AORTIC ANEURYSM REPAIR -L4 LAMINECTOMY -CHOLECYSTECTOMY Physical Exam Vital Signs Vital Signs - First Documented 10/23/20 10/23/20 19:20 20:30 Temp 36.9 Pulse 77 Resp 18 B/P (MAP) 138/72 (94) Pulse Ox 96 O2 Delivery Room Air Capillary Refill : Height/Weight/BMI Height: 6'1.00" Weight: 226lbs. 7.0oz. 102.482089jy; 30.00 BMI Method:Stated General Appearance: WD/WN, no apparent distress Respiratory: normal breath sounds, no respiratory distress, no accessory muscle use Cardiovascular: regular rate, rhythm, no murmur Gastrointestinal: normal bowel sounds, soft; No distended, No guarding, No rebound; tenderness (MIDL DIFFUSE LOWER ABDOMINAL TENDERNESS) Extremities: no pedal edema Back: no CVA tenderness Neurologic/Psychiatric: no motor/sensory deficits, alert, normal mood/affect, other (OREINTED TO PERSON, PLACE, SITUATION, AND ABLE TO GIVE MUCH OF PAST MEDICAL HISTORY) Skin: normal color, warm/dry Progress/Results/Core Measures Results/Orders Lab Results Laboratory Tests Test 10/23/20 19:25 Range/Units White Blood Count 9.7 4.3-11.0 10^3/uL Red Blood Count 4.11 L 4.30-5.52 10^6/uL Hemoglobin 12.4 L 13.3-17.7 g/dL Hematocrit 39 L 40-54 % Mean Corpuscular Volume 95 80-99 fL Mean Corpuscular Hemoglobin 30 25-34 pg Mean Corpuscular Hemoglobin Concent 32 32-36 g/dL Red Cell Distribution Width 14.7 H 10.0-14.5 % Platelet Count 259 130-400 10^3/uL Mean Platelet Volume 9.8 9.0-12.2 fL Immature Granulocyte % (Auto) 0 % Neutrophils (%) (Auto) 59 42-75 % Lymphocytes (%) (Auto) 26 12-44 % Monocytes (%) (Auto) 9 0-12 % Eosinophils (%) (Auto) 4 0-10 % Basophils (%) (Auto) 1 0-10 % Neutrophils # (Auto) 5.7 1.8-7.8 10^3/uL Lymphocytes # (Auto) 2.5 1.0-4.0 10^3/uL Monocytes # (Auto) 0.9 0.0-1.0 10^3/uL Eosinophils # (Auto) 0.4 H 0.0-0.3 10^3/uL Basophils # (Auto) 0.1 0.0-0.1 10^3/uL Immature Granulocyte # (Auto) 0.0 0.0-0.1 10^3/uL Sodium Level 139 135-145 MMOL/L Potassium Level 4.9 3.6-5.0 MMOL/L Chloride Level 99 98-107 MMOL/L Carbon Dioxide Level 28 21-32 MMOL/L Anion Gap 12 5-14 MMOL/L Blood Urea Nitrogen 11 7-18 MG/DL Creatinine 0.98 0.60-1.30 MG/DL Estimat Glomerular Filtration Rate > 60 BUN/Creatinine Ratio 11 Glucose Level 160 H 70-105 MG/DL Calcium Level 9.6 8.5-10.1 MG/DL Corrected Calcium 9.4 8.5-10.1 MG/DL Total Bilirubin 0.3 0.1-1.0 MG/DL Aspartate Amino Transf (AST/SGOT) 27 5-34 U/L Alanine Aminotransferase (ALT/SGPT) 26 0-55 U/L Alkaline Phosphatase 90 40-136 U/L Total Protein 8.1 6.4-8.2 GM/DL Albumin 4.3 3.2-4.5 GM/DL My Orders Orders - JETT SORTO DO Ed Iv/Invasive Line Start (10/23/20 19:18) Monitor-Rhythm Ecg Trace Only (10/23/20 19:18) Acute Abd Series (10/23/20 19:18) Cbc With Automated Diff (10/23/20 19:18) Comprehensive Metabolic Panel (10/23/20 19:18) Ua Culture If Indicated (10/23/20 19:18) Ct Abdomen/Pelvis Wo (10/23/20 19:26) Vital Signs/I&O 10/23/20 10/23/20 19:20 20:30 Temp 36.9 36.0 Pulse 77 66 Resp 18 18 B/P (MAP) 138/72 (94) 143/89 Pulse Ox 96 O2 Delivery Room Air Room Air Progress Progress Note : Progress Note UNEVENTFUL ER STAY. SPOKE WITH PT AND RN AT [facility]. PT IS NOW AGREEABLE TO ENEMAS AND SUPPOSITORIES. WILL ALSO START DAILY MIRALAX. Diagnostic Imaging Comments ABDOMEN XRAYS--PER RADIOLOGIST REPORT AT 2002 FINDINGS: The lung volumes are normal. No focal consolidation is seen. Scattered interstitial markings are seen in the lungs, likely representing chronic fibrotic changes. No large pleural effusion or pneumothorax is seen. The cardiomediastinal silhouette is prominent. There is calcified aortic atherosclerotic plaque. Left pectoral pacemaker is in place. No acute osseous abnormality is seen. No evidence of bowel obstruction or large collection of free intraperitoneal air. A moderate amount of stool is seen throughout the colon. IMPRESSION: 1. No acute pleuroparenchymal process. 2. Moderate amount of stool in the colon, likely representing constipation. 3. Cardiomegaly. CT ABDOMEN/PELVIS--PER RADIOLOGIST REPORT AT 2002 IMPRESSION: 1. Moderate amount of stool throughout the colon, consistent with a history of constipation. No bowel obstruction, free fluid or free air. 2. 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 No periaortic inflammatory change is seen to suggest impending rupture. 3. Moderate hiatal hernia. 4. Cardiomegaly. Reviewed: Reviewed by Me Departure Impression Primary Impression: Constipation Additional Impression: Obstipation Disposition: 03 XFER [facility] Condition: Stable Departure-Patient Inst. Referrals: DEANA ALFONSO DO (PCP/Family) Primary Care Physician Patient Instructions: Constipation, Adult (DC) Add. Discharge Instructions: CLEAR LIQUIDS--WATER, BROTH, JELLO, GATORADE NO FOOD UNTIL STOOLS ARE CLEAR FLEET'S ENEMAS AND DULCOLAX SUPPOSITORIES UNTIL STOOLS ARE CLEAR BEGIN TAKING MIRALAX DAILY--INCREASE DOSE NEEDED TO KEEP STOOLS SOFT FOLLOW UP WITH DR. GELLENDER NEEDED Scripts Bisacodyl (Dulcolax) 10 Mg Supp.rect 10 MG RC PRN, #10 SUPP.RECT Prov: JETT SORTO DO 10/23/20 Na Phos,M-B/Na Phos,Di-Ba (Fleet Enema) 133 Ml Enema 133 ML RC PRN, #5 EA Prov: JETT SORTO DO 10/23/20 Polyethylene Glycol 3350 (Miralax) 17 Gm Powd.pack 17 GM PO DAILY PRN, #1 EACH Prov: JETT SORTO DO 10/23/20 JETT SORTO DO Oct 23, 2020 19:36
[2020-10-23 19:47] LABS: ALBUMIN 4.3 GM/DL (3.2-4.5); CHLORIDE 99 MMOL/L (98-107); POTASSIUM 4.9 MMOL/L (3.6-5.0); SODIUM 139 MMOL/L (135-145)
[2020-10-23 19:48] LABS: CALCIUM 9.6 MG/DL (8.5-10.1)
[2020-10-23 19:49] LABS: GLUCOSE 160 MG/DL (70-105); TOTAL PROTEIN 8.1 GM/DL (6.4-8.2)
[2020-10-23 19:50] LABS: CARBON DIOXIDE 28 MMOL/L (21-32)
[2020-10-23 19:51] LABS: BILIRUBIN,TOTAL 0.3 MG/DL (0.1-1.0)
[2020-10-23 19:53] LABS: ALKALINE PHOSPHATASE 90 U/L (40-136); CREATININE SERUM 0.98 MG/DL (0.60-1.30); GFR ESTIMATED > 60
[2020-10-23 19:54] LABS: BUN/CREATININE RATIO 11
[2020-10-23 19:56] LABS: ALANINE AMINOTRANSFERASE 26 U/L (0-55)
--- NOTE | 2020-10-23 20:01 | Diagnostic Imaging Report ---
PROCEDURE: CT abdomen and pelvis without contrast. TECHNIQUE: Multiple contiguous axial images were obtained through the abdomen and pelvis without the use of intravenous contrast. Auto Exposure Controls were utilized during the CT exam to meet ALARA standards for radiation dose reduction. INDICATION: Abdominal pain. Constipation. COMPARISON: 03/22/2019. FINDINGS: The heart size is enlarged. Basilar atelectasis/scarring is noted, bilaterally. A moderate hiatal hernia is present. Hepatic cyst is seen in the right hepatic lobe, stable compared to the prior exam. The gallbladder is surgically absent. The spleen, pancreas, adrenal glands and kidneys have a normal appearance. There is no pathologically enlarged mesenteric or retroperitoneal adenopathy. The bowel loops are nondilated. A moderate amount of stool is seen throughout the colon. There is no free fluid or free air. No acute osseous abnormality. Laminectomy is noted at L4. There is calcified aortic and iliac atherosclerotic plaque. A focal saccular aneurysm is seen at the bifurcation of the iliac arteries measuring 2.2 cm, previously measuring 2.2 cm. No periaortic inflammatory changes are seen. The urinary bladder is nondistended. There is no free air, loculated collection, or adenopathy in the pelvis. IMPRESSION: 1. Moderate amount of stool throughout the colon, consistent with a history of constipation. No bowel obstruction, free fluid or free air. 2. 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 No periaortic inflammatory change is seen to suggest impending rupture. 3. Moderate hiatal hernia. 4. Cardiomegaly. Dictated by: Dictated on workstation # [id number]
--- NOTE | 2020-10-23 20:02 | Diagnostic Imaging Report ---
PATIENT HISTORY: Abdominal pain. Constipation. TECHNIQUE: Four views of the chest and abdomen were obtained. COMPARISON: 06/01/2020. FINDINGS: The lung volumes are normal. No focal consolidation is seen. Scattered interstitial markings are seen in the lungs, likely representing chronic fibrotic changes. No large pleural effusion or pneumothorax is seen. The cardiomediastinal silhouette is prominent. There is calcified aortic atherosclerotic plaque. Left pectoral pacemaker is in place. No acute osseous abnormality is seen. No evidence of bowel obstruction or large collection of free intraperitoneal air. A moderate amount of stool is seen throughout the colon. IMPRESSION: 1. No acute pleuroparenchymal process. 2. Moderate amount of stool in the colon, likely representing constipation. 3. Cardiomegaly. Dictated by: Dictated on workstation # [id number]
[2020-10-23] MEDS ORDERED: POLY17PO6 PO (20:21)
[2020-10-23] MEDS ORDERED: NA P133E22 RC (20:21)
[2020-10-23] MEDS ORDERED: BISA10SU58 RC (20:21)
[2020-10-23 20:30] VITALS: BP 143/89
== END 2020-10-23 20:30 ==
LOC: EDUNIT# 19:13 → ER 19:15
DX: K59.00 Constipation, unspecified (principal); I25.2 Old myocardial infarction; J44.9 Chronic obstructive pulmonary disease, unspecified; K21.9 Gastro-esophageal reflux disease without esophagitis; E78.00 Pure hypercholesterolemia, unspecified; N40.0 Benign prostatic hyperplasia without lower urinary tract symptoms; F32.9 Major depressive disorder, single episode, unspecified; F41.9 Anxiety disorder, unspecified; E11.9 Type 2 diabetes mellitus without complications; H40.9 Unspecified glaucoma; Z86.73 Personal history of transient ischemic attack (TIA), and cerebral infarction without residual deficits; Z95.0 Presence of cardiac pacemaker; Z77.22 Contact with and (suspected) exposure to environmental tobacco smoke (acute) (chronic); Z88.1 Allergy status to other antibiotic agents; Z79.84 Long term (current) use of oral hypoglycemic drugs
CPT/HCPCS: 36415; 74022; 74176; 80053; 85025

== ENCOUNTER 2020-11-30 05:38 | Outpatient (RCR) | payer MEDICARE, MEDICAID ==
[~2020-11-30] VITALS: Ht 190.5 cm; Wt 95.9 kg
[~2020-11-30 05:38] MED LIST changes: +BISA10SU58 RC; +NA P133E22 RC; +POLY17PO6 PO
[2020-11-30] MEDS ORDERED: ASPI-999 PO (15:09)
[2020-12-06] MEDS ORDERED: PANT40TA2 PO (13:43)
== END 2020-12-01 11:48 | disposition home or self-care (01) ==
LOC: PREOP 05:38
PROVIDERS: ATTEND Surgery
DX: Z01.818 Encounter for other preprocedural examination (principal)

== ENCOUNTER 2020-12-06 11:39 | Day surgery (SDC) | payer MEDICARE, MEDICAID ==
[~2020-12-06] VITALS: Ht 182 cm; Wt 96.0 kg
[~2020-12-06 11:39] MED LIST changes: +ASPI-999 PO; +LACTATED RINGERS 1,000 ML IV ONE
[2020-12-06] MEDS ORDERED: LACTATED RINGERS 1,000 ML IV STA (11:43)
[2020-12-06] MEDS ORDERED: HURRICAINE EXT TUBE (BENZOCAINE) XX PRN (11:45)
--- NOTE | 2020-12-06 12:01 | Progress Note-Pre Operative ---
Pre-Operative Progress Note H&P Reviewed The H&P was reviewed, patient examined and no changes noted. Date Seen by Provider: Dec 06, 2020 Time Seen by Provider: 12:01 Date H&P Reviewed: Dec 06, 2020 Time H&P Reviewed: 12:01 Pre-Operative Diagnosis: epigastric abdominal pain, n/v VERA HOOPER DO Dec 06, 2020 12:01
[2020-12-06 12:08] VITALS: BP 116/87
[2020-12-06] MEDS ORDERED: proPOfol 200 MG/20 ML (DIPRIVAN) VIAL IV ONE (13:04)
[2020-12-06] MEDS ORDERED: HURRICAINE EXT TUBE (BENZOCAINE) ONE (13:22)
--- NOTE | 2020-12-06 13:40 | Anesthesia-General Post-Op ---
MAC Patient Condition Mental Status/LOC: Same as Preop Cardiovascular: Satisfactory Nausea/Vomiting: Absent Respiratory: Satisfactory Pain: Controlled Complications: Absent Post Op Complications Complications None Follow Up Care/Instructions Patient Instructions None needed. Anesthesiology Discharge Order Discharge Order Patient is doing well, no complaints, stable vital signs, no apparent adverse anesthesia problems. No complications reported per nursing. JUSTYNA MCGINNIS CRNA Dec 06, 2020 13:40
--- NOTE | 2020-12-06 13:41 | Progress Note-Post Operative ---
Post-Operative Progess Note Surgeon (s)/Shipyard Painter Apprentice (s) Surgeon VERA HOOPER DO Shipyard Painter Apprentice: na Pre-Operative Diagnosis epigastric abdominal pain, n/v Post-Operative Diagnosis hiatal hernia, gastritis Procedure & Operative Findings Date of Procedure 12/06/20 Procedure Performed/Findings egd c biopsy Anesthesia Type per senior consultant Estimated Blood Loss Estimated blood loss (mL): none Specimens/Packing Specimens Removed antrum VERA HOOPER DO Dec 06, 2020 13:41
[2020-12-06] MEDS ORDERED: PANT40TA2 PO (13:43)
--- NOTE | 2020-12-06 13:43 | Discharge Inst-Simple/Standard ---
Discharge Inst-Standard Discharge Medications New, Converted or Re-Newed RX: Transmitted to Pharmacy Patient Instructions/Follow Up Plan of Care/Instructions/FU: 2-3 weeks iam Activity as Tolerated: Yes Discharge Diet: Regular Diet VERA HOOPER DO Dec 06, 2020 13:43
[2020-12-06 13:45] VITALS: BP 90/50
[2020-12-06 13:50] VITALS: BP 93/54
[2020-12-06 14:32] VITALS: BP 115/58
[2020-12-06 14:33] VITALS: BP 90/52
--- NOTE | 2020-12-06 15:37 | OPERATIVE REPORT ---
DATE OF SERVICE: 12/06/2020 PREOPERATIVE DIAGNOSES: Epigastric abdominal pain, nausea and vomiting. POSTOPERATIVE DIAGNOSES: Hiatal hernia and gastritis. PROCEDURES PERFORMED: EGD with biopsy. SURGEON: Vera Wilkes DO. ANESTHESIA: Per WILL CALL ORDER CLERK. ESTIMATED BLOOD LOSS: None. COMPLICATIONS: None. INDICATIONS FOR PROCEDURE: The patient is an 80-year-old male with nausea, vomiting, epigastric abdominal pain. He understands risks and benefits of the procedure and wished to proceed with the procedure. Consent was signed in the chart. DESCRIPTION OF PROCEDURE: The patient was taken to the endoscopy suite and placed in a left lateral recumbent position. Timeout was performed. Scope was inserted in the mouth, down the esophagus, stomach and into the duodenum without difficulty. There were no polyps, masses or ulcerations within the duodenum. Scope was slowly retracted back into the stomach, where it was further insufflated. Erythematous changes were present. Biopsy of the antrum was obtained. No polyps, masses or ulcerations. Scope was retroflexed noting a hiatal hernia, no other pathology. Scope was returned to its normal position, slowly withdrawn to distal esophagus. No polyps, masses or ulcerations, no erythematous changes. Scope was then slowly retracted back until completely removed. The patient tolerated procedure well without any complications and taken to the recovery room in a stable condition. RECOMMENDATIONS: The patient stopped omeprazole and placed on 40 mg daily of Protonix. Await biopsy results. Further recommendations pending those results. Job ID: [id number] DocumentID: [id number] Dictated Date: 12/06/2020 13:46:01 Target Trimmer Date: 12/06/2020 15:36:56 Dictated By: VERA WILKES DO
== END 2020-12-06 14:30 | disposition home or self-care (01) ==
LOC: ENDO 11:39
PROVIDERS: ATTEND Surgery
DX: K29.70 Gastritis, unspecified, without bleeding (principal); K21.9 Gastro-esophageal reflux disease without esophagitis; K43.2 Incisional hernia without obstruction or gangrene; G47.33 Obstructive sleep apnea (adult) (pediatric); K31.89 Other diseases of stomach and duodenum; I10 Essential (primary) hypertension; J44.9 Chronic obstructive pulmonary disease, unspecified; E11.9 Type 2 diabetes mellitus without complications; I25.10 Atherosclerotic heart disease of native coronary artery without angina pectoris; F01.50 Vascular dementia, unspecified severity, without behavioral disturbance, psychotic disturbance, mood disturbance, and anxiety; F32.9 Major depressive disorder, single episode, unspecified; F41.9 Anxiety disorder, unspecified; Z88.1 Allergy status to other antibiotic agents; Z79.899 Other long term (current) drug therapy; Z79.84 Long term (current) use of oral hypoglycemic drugs; Z87.891 Personal history of nicotine dependence; Z86.73 Personal history of transient ischemic attack (TIA), and cerebral infarction without residual deficits; Z95.0 Presence of cardiac pacemaker
CPT/HCPCS: 82962; 88305

== ENCOUNTER 2021-07-13 05:43 | Outpatient (CLI) | payer MEDICARE, MEDICAID ==
[~2021-07-13] VITALS: Ht 182.9 cm
[~2021-07-13 05:43] MED LIST changes: -LACTATED RINGERS 1,000 ML IV ONE; +MIRT-68 PO; -MIRT15TA6 PO; -OMEP40CA27 PO; +OMEP40CA6 PO; +PANT40TA2 PO
[2021-07-14] MEDS ORDERED: PRAS10TA10 PO (15:03)
[2021-07-14] MEDS ORDERED: TRM50T PO (15:03)
[2021-07-14] MEDS ORDERED: PANT40TA2 PO (15:03)
[2021-07-14] MEDS ORDERED: TMSL.4C PO (15:03)
[2021-07-14] MEDS ORDERED: TRAM50TA3 PO (15:03)
[2021-07-14] MEDS ORDERED: ALPR0.254 PO (15:03)
[2021-07-14] MEDS ORDERED: LOSA25TA41 PO (15:03)
[2021-07-14] MEDS ORDERED: MIRT7.5T8 PO (15:03)
[2021-07-14] MEDS ORDERED: ZOLP5TAB7 PO (15:03)
[2021-07-14] MEDS ORDERED: LOPE2TAB34 PO (15:03)
[2021-07-14] MEDS ORDERED: ONDA4TAB11 PO (15:03)
[2021-07-14] MEDS ORDERED: DOCU100C37 PO (15:03)
== END 2021-07-14 15:14 | disposition home or self-care (01) ==
LOC: PREOP 05:43
PROVIDERS: ATTEND Surgery
DX: Z01.818 Encounter for other preprocedural examination (principal)

== ENCOUNTER 2021-07-20 08:14 | Day surgery (SDC) | payer MEDICARE, MEDICAID ==
[~2021-07-20] VITALS: Ht 182 cm; Wt 100.0 kg
[2021-07-20] VITALS (11 sets, daily range): BP systolic 126–157; BP diastolic 66–98
[~2021-07-20 08:14] MED LIST changes: +ALPR0.254 PO; +DOCU100C37 PO; +LOPE2TAB34 PO; +LOSA25TA41 PO; +PRAS10TA10 PO; +TRAM50TA3 PO; +TRM50T PO; +ZOLP5TAB7 PO
--- OUTSIDE RECORDS SUMMARY | 2021-07-20 08:17 | XMS REPORT | Clinical Summary ---
Author Author [facility] Organization [facility] Address Unknown Phone Unavailable Care Team Providers Care Academic Success Coordinator Name Role Phone Andres Trent MD PCP Joaquim Juan MD Unavailable Source Comments Some departments are not documenting in the electronic medical record. If you d o not see the information that you expected, contact Release of Information in [facility] Information Management department at [phone] for further assistan ce in locating additional records.[facility] Allergies No Known Active Allergies Medications End Date Status Medication Sig Dispensed Refills Start Date Active gabapentin (NEURONTIN) Take 300 mg 0 100 mg PO capsule by mouth Daily. bedtime Active fexofenadine(+) (GREGORIO) Take 60 mg by 0 60 mg PO tablet mouth Daily. Active LISINOPRIL PO Take 20 mg by 0 mouth Daily. Active dicyclomine (BENTYL) 20 Take 20 mg by 0 mg PO tablet mouth Three Times Daily. Active TRAMADOL HCL (TRAMADOL Take 50 mg by 0 PO) mouth Four Times Daily. Active alprazolam (XANAX) 0.25 Take 1 mg by 0 mg PO tablet mouth Four Times Daily. Active SIMVASTATIN PO Take 20 mg by 0 mouth Daily. Active Problems Not on file Family History Medical History Relation Name Comments Cancer Brother SPLENIC CANCER Relation Name Status Comments Brother Social History Date Tobacco Use Types Packs/Day Years Used Current Every Day Smoker Cigarettes 1 40 Comments Alcohol Use Standard Drinks/Week No 0 (1 standard drink = 0.6 o z pure alcohol) Sex Assigned at Date Recorded Not on file Last Filed Vital Signs Reading Time Taken Comments Vital Sign 127/78 06/08/2010 10:50 AM CDT Blood Pressure 76 06/08/2010 10:50 AM CDT Pulse 36.8 C (98.2 F) 06/08/2010 9:12 AM CDT Temperature - - Respiratory Rate 96% 06/08/2010 10:50 AM CDT Oxygen Saturation - - Inhaled Oxygen Concentration 107 kg (236 lb) 06/08/2010 9:12 AM CDT Weight 185.4 cm (6' 1") 06/08/2010 9:12 AM CDT Height 31.14 06/08/2010 9:12 AM CDT Body Mass Index Plan of Treatment Health Maintenance Due Date Last Done Comments DTAP/TDAP VACCINES (1 - 02/20/1956 Tdap) PHYSICAL (COMPREHENSIVE) 02/20/1956 EXAM SHINGLES RECOMBINANT 02/20/1988 VACCINE (1 of 2) PNEUMONIA (PPSV23) 2003 VACCINE (1 of 1 - PPSV23) INFLUENZA VACCINE 04/23/2021 Results Not on filefrom Last 3 Months
[2021-07-20] MEDS ORDERED: LIDOCAINE/EPI 1%-1:100,000 (XYLOCAINE) 20ML ONE (08:38)
--- NOTE | 2021-07-20 08:58 | Progress Note-Pre Operative ---
Pre-Operative Progress Note H&P Reviewed The H&P was reviewed, patient examined and no changes noted. Date Seen by Provider: Jul 20, 2021 Time Seen by Provider: 08:58 Date H&P Reviewed: Jul 20, 2021 Time H&P Reviewed: 08:58 Pre-Operative Diagnosis: incisional hernia VERA HOOPER DO Jul 20, 2021 08:58
[2021-07-20] MEDS ORDERED: CLINDAMYCIN 600 MG/50 ML IVPB 50 ML IV ONE (09:00)
[2021-07-20] MEDS ORDERED: ONDANSETRON 4 MG/2 ML (SDV) Z0FRAN ONE ×2 (09:12→09:41)
[2021-07-20] MEDS: LACTATED RINGERS 1,000 ML IV PRN ×3 (09:14→10:36)
[2021-07-20] MEDS ORDERED: ONDANSETRON 4 MG/2 ML (SDV) Z0FRAN IV ONE (09:15)
[2021-07-20] MEDS ORDERED: fentaNYL INJ 100 MCG/2 ML AMP ONE (09:41)
[2021-07-20] MEDS ORDERED: SEVOFLURANE (ULTANE) 15 ML INHAL SOLN ONE ×2 (09:41→09:58)
[2021-07-20] MEDS ORDERED: proPOfol 200 MG/20 ML (DIPRIVAN) VIAL IV ONE (09:41)
[2021-07-20] MEDS ORDERED: ROCURONIUM 10 MG/ML 5 ML SYRINGE IV ONE (09:41)
[2021-07-20] MEDS ORDERED: LIDOCAINE PF 2% 5 ML (XYLOCAINE) VIAL ONE (09:41)
[2021-07-20] MEDS ORDERED: SUCCINYLCHOLINE INJ 100 MG/5 ML SYR/VIAL ONE (09:57)
[2021-07-20] MEDS ORDERED: PHENYLEPHRINE 100 MCG/ML 10 ML (ANESTHESIA) SYR ONE (09:57)
--- NOTE | 2021-07-20 10:38 | Progress Note-Post Operative ---
Post-Operative Progess Note Surgeon (s)/Psychology Physician (s) Surgeon VERA HOOPER DO Psychology Physician: Dr. Newberry to assist in retraction dissection and closure. Pre-Operative Diagnosis incisional hernia Post-Operative Diagnosis incisional hernias Procedure & Operative Findings Date of Procedure 07/20/21 Procedure Performed/Findings PROCEDURE: Laparoscopic incarcerated incisional hernia repair with mesh. COMPLICATIONS: None. INDICATIONS: The patient is a 81, male with an incisional hernia, which has continued to increase in size and cause discomfort. The patient was explained the risk and benefits of the procedure and wished to proceed with the procedure. Consent was signed on the chart. DESCRIPTION OF PROCEDURE: The patient was taken into the operating suite, prepped and draped in sterile fashion. Surgical pause was performed. Local anesthetic was infiltrated in left upper quadrant. A 15 blade scalpel was used to make a small skin incision. Cautery was used to dissect down to the fascia, which was then scored and divided the muscle, went through the posterior sheath and a balloon trocar was inserted into the abdomen. The abdomen was then insufflated. Multiple incisional hernia. A 5 mm trocar was placed in the left lower quadrant and ligasure was used to take down adhesions and reduce hernia contents. Then a 5 mm trocar was placed in right upper quadrant. Echo Ventralight [id number] mesh was then inserted in the abdomen grabbed through the stab incision. The balloon was inflated on the mesh. Circumferential tacks were placed with a SecureStrap Tacker. The balloon was then removed and inner crown was created as well. The mesh was tacked with pressure being decreased. The 12 mm fascial defect was then closed using 0 Vicryl. The abdomen was then desufflated,the trocars were removed. The skin was then closed using 4-0 Monocryl in a running subcuticular fashion. The abdomen was washed and dried and Skin Affix was placed over the incisions. The patient tolerated procedure well without any complications. She was taken to recovery room in stable condition. Anesthesia Type general Estimated Blood Loss Estimated blood loss (mL): minimal Specimens/Packing Specimens Removed VERA Vazquez DO Jul 20, 2021 10:38
[2021-07-20] MEDS ORDERED: ACHD5005 PO (10:39)
[2021-07-20] MEDS ORDERED: DOCU-143 PO (10:39)
--- NOTE | 2021-07-20 10:40 | Discharge Inst-Simple/Standard ---
Discharge Inst-Standard Discharge Medications New, Converted or Re-Newed RX: Transmitted to Pharmacy Patient Instructions/Follow Up Plan of Care/Instructions/FU: 2-3 weeks Chung Activity as Tolerated: No Discharge Diet: Regular Diet Other Inst to Patient Follow up Appt: Make appointment for 2-3 week. Instructions: No lifting greater than 10 pounds. No strenuous activity. May shower in 24 hours, no tub bath or soaking. Use incentive spirometer at home as directed. No Smoking Skin/Wound Care: You have special glue over your incision that will fall off on it's own. Symptoms to Report: Appetite Changes, Extremity Discoloration, Numbness/Tingling, Swelling Increas ed, Bleeding Excessive, Eyesight Changes, Pain Increased, Urine Color Change, Constipation(Persistent), Fever over 101 degree F, Pain/Pressure in chest, Urinating Difficulty, Cough Up/Vomit Blood, Heart Beat Irreg/Pounding, Pain/Pressure in jaw, Vaginal Bleeding Increase, Cramps in feet or legs, Lightheadedness, Pain/Pressure in shoulder, Diarrhea(Persistent), Memory Changes Suddenly, Questions/Concerns, Weight gain consecutive days, Dizziness/Fainting, Nausea/Vomiting, Shortness of Breath, Weight gain over 2 pounds If questions or concerns contact your physician Or seek help at emergency department. VERA HOOPER DO Jul 20, 2021 10:40
[2021-07-20] MEDS ORDERED: morphine INJ 10 MG/ML 1ML (SYR OR VIAL) IVP ONE (11:00)
[2021-07-20] MEDS ORDERED: ONDANSETRON 4 MG/2 ML (SDV) Z0FRAN IVP PRN (11:00)
[2021-07-20] MEDS ORDERED: fentaNYL INJ 100 MCG/2 ML AMP IVP ONE (11:00)
[2021-07-20] MEDS ORDERED: MEPERIDINE (DEMEROL) INJ 50 MG/ML IVP ONE (11:00)
--- NOTE | 2021-07-20 12:16 | Anesthesia-General Post-Op ---
General Patient Condition Mental Status/LOC: Same as Preop Cardiovascular: Satisfactory Nausea/Vomiting: Absent Respiratory: Satisfactory Pain: Controlled Complications: Absent Post Op Complications Complications None Follow Up Care/Instructions Patient Instructions None needed. Anesthesia/Patient Condition Patient Condition Patient is doing well, no complaints, stable vital signs, no apparent adverse anesthesia problems. No complications reported per nursing. JUSTYNA MCGINNIS CRNA Jul 20, 2021 12:16
[2021-07-20] MEDS ORDERED: HYDROcodone/APAP 5 MG/325 MG (LORTAB) TAB PO ONE (12:30)
[2021-07-20] MEDS ORDERED: HYDROcodone/APAP 5 MG/325 MG (LORTAB) TAB ONE (12:37)
== END 2021-07-20 13:20 | disposition home or self-care (01) ==
LOC: SDC 08:14
PROVIDERS: ATTEND Surgery
DX: K43.0 Incisional hernia with obstruction, without gangrene (principal); G47.33 Obstructive sleep apnea (adult) (pediatric); I10 Essential (primary) hypertension; I25.10 Atherosclerotic heart disease of native coronary artery without angina pectoris; E78.5 Hyperlipidemia, unspecified; J44.9 Chronic obstructive pulmonary disease, unspecified; E11.9 Type 2 diabetes mellitus without complications; N40.0 Benign prostatic hyperplasia without lower urinary tract symptoms; K21.9 Gastro-esophageal reflux disease without esophagitis; H40.9 Unspecified glaucoma; Z87.891 Personal history of nicotine dependence; Z95.1 Presence of aortocoronary bypass graft; Z99.81 Dependence on supplemental oxygen; Z79.899 Other long term (current) drug therapy; Z79.02 Long term (current) use of antithrombotics/antiplatelets; Z79.82 Long term (current) use of aspirin; Z79.84 Long term (current) use of oral hypoglycemic drugs; Z88.1 Allergy status to other antibiotic agents
CPT/HCPCS: 49655; 82947; 87081; C1781

== ENCOUNTER 2021-11-03 08:41 | Outpatient (CLI) | payer MEDICARE, MEDICAID ==
[~2021-11-03] VITALS: Ht 182 cm; Wt 100.0 kg
[~2021-11-03 08:41] MED LIST changes: +ACHD5005 PO; +DOCU-143 PO
[2021-11-03] MEDS ORDERED: DOXE6TAB5 PO (11:05)
[2021-11-03] MEDS ORDERED: CARB-270 OP (11:05)
[2021-11-03] MEDS ORDERED: SODI30SP2 NS (11:05)
[2021-11-03] MEDS ORDERED: OLME20TA24 PO (11:05)
== END 2021-11-03 11:14 | disposition home or self-care (01) ==
LOC: PREOP 08:41
PROVIDERS: ATTEND Surgery
DX: Z01.818 Encounter for other preprocedural examination (principal)

== ENCOUNTER 2021-11-17 10:25 | Day surgery (SDC) | payer MEDICARE, MEDICAID ==
[~2021-11-17] VITALS: Ht 182 cm; Wt 100.0 kg
[~2021-11-17 10:25] MED LIST changes: +CARB-270 OP; +DOXE6TAB5 PO; +OLME20TA24 PO; +SODI30SP2 NS
[2021-11-17] MEDS ORDERED: LACTATED RINGERS 1,000 ML IV ONE (10:29)
[2021-11-17] MEDS ORDERED: LACTATED RINGERS 1,000 ML IV STA (10:29)
[2021-11-17 10:45] VITALS: BP 149/82
[2021-11-17] MEDS ORDERED: ONDANSETRON 4 MG/2 ML (SDV) Z0FRAN ONE (10:47)
[2021-11-17] MEDS ORDERED: ONDANSETRON 4 MG/2 ML (SDV) Z0FRAN IVP ONE (11:15)
--- NOTE | 2021-11-17 12:09 | Progress Note-Pre Operative ---
Pre-Operative Progress Note H&P Reviewed The H&P was reviewed, patient examined and no changes noted. Date Seen by Provider: Nov 17, 2021 Time Seen by Provider: 12:08 Date H&P Reviewed: Nov 17, 2021 Time H&P Reviewed: 12:08 Pre-Operative Diagnosis: occult +stool, constipation VERA HOOPER DO Nov 17, 2021 12:09
[2021-11-17] MEDS ORDERED: PROPOFOL INJECTION 50 ML IV ONE (12:44)
--- NOTE | 2021-11-17 13:23 | Progress Note-Post Operative ---
Post-Operative Progess Note Surgeon (s)/Hemodialysis Patient Care Specialist (s) Surgeon VERA HOOPER DO Hemodialysis Patient Care Specialist: na Pre-Operative Diagnosis occult +stool, constipation Post-Operative Diagnosis colon polyps, internal hemorrhoids Procedure & Operative Findings Date of Procedure 11/17/21 Procedure Performed/Findings colonoscopy c hot bx polypectomy x 5 and snare polypectomy x 5 Anesthesia Type per yard clerk Estimated Blood Loss Estimated blood loss (mL): none Specimens/Packing Specimens Removed colon polyps VERA HOOPER DO Nov 17, 2021 13:23
--- NOTE | 2021-11-17 13:24 | Anesthesia-General Post-Op ---
MAC Patient Condition Mental Status/LOC: Same as Preop Cardiovascular: Satisfactory Nausea/Vomiting: Absent Respiratory: Satisfactory Pain: Controlled Complications: Absent Post Op Complications Complications None Follow Up Care/Instructions Patient Instructions None needed. Anesthesiology Discharge Order Discharge Order Patient is doing well, no complaints, stable vital signs, no apparent adverse anesthesia problems. No complications reported per nursing. NGA BUNCH CRNA Nov 17, 2021 13:24
[2021-11-17 13:25] VITALS: BP 93/51
--- NOTE | 2021-11-17 13:25 | Discharge Inst-Simple/Standard ---
Discharge Inst-Standard Patient Instructions/Follow Up Plan of Care/Instructions/FU: 2 weeks iam Activity as Tolerated: Yes Discharge Diet: Regular Diet (high fiber) VERA HOOPER DO Nov 17, 2021 13:25
[2021-11-17 13:31] VITALS: BP 108/59
[2021-11-17 14:25] VITALS: BP 142/93
--- NOTE | 2021-11-17 18:19 | OPERATIVE REPORT ---
DATE OF SERVICE: 11/17/2021 PREOPERATIVE DIAGNOSES: Occult positive stool and constipation. POSTOPERATIVE DIAGNOSES: Colon polyps and internal hemorrhoids. PROCEDURES PERFORMED: Colonoscopy with hot biopsy polypectomy x5 and snare polypectomy x5. SURGEON: Vera Wilkes DO. ANESTHESIA: Per CARDIAC RN. ESTIMATED BLOOD LOSS: None. COMPLICATIONS: None. INDICATIONS OF PROCEDURE: The patient is an 81-year-old male with occult positive stools and constipation issues. He understands the risks and benefits of the procedure and wishes to proceed. Consent was signed in the chart. DESCRIPTION OF PROCEDURE: The patient was taken to the endoscopy suite and placed in the left recumbent position. A timeout was performed. Digital rectal exam was performed. No palpable polyps, masses or ulcerations. Some internal hemorrhoidal disease. Scope was inserted in the rectum and advanced all the way to cecum with minimal difficulty. Prep was adequate with irrigation and suction. Scope was then slowly retracted back. The polyp in the cecum was slightly erythematous and a hot biopsy polypectomy was performed. Scope was then continuously retracted back in the ascending colon, three small polyps were present, which hot biopsy polypectomies were performed. Scope was then continuously retracted back into the transverse colon where five larger polyps were present, which snare polypectomies were performed. Scope was then continuously and slowly retracted back. No polyps, masses or ulcerations in the descending colon. In the sigmoid colon, another small polyp was present, which hot biopsy polypectomy was performed. Scope was slowly retracted back into the rectum, where it was also retroflexed noting some internal hemorrhoidal disease. No other pathology. Scope was returned to its normal position, slowly withdrawn until completely removed. The patient tolerated the procedure well without any complications. He was taken to the recovery room in stable condition. RECOMMENDATIONS: The patient will follow up on biopsy results. Due to morbidity, the patient will be recommended repeat colonoscopy on as needed basis. Any issues be seen at that time. The patient will follow up in the office in two weeks to discuss pathology results. Job ID: [id number] DocumentID: [id number] Dictated Date: 11/17/2021 13:27:42 Doubler Operator Date: 11/17/2021 18:19:24 Dictated By: VERA WILKES DO
== END 2021-11-17 14:25 ==
LOC: ENDO 10:25
PROVIDERS: ATTEND Surgery
DX: R19.5 Other fecal abnormalities (principal); K63.5 Polyp of colon; D12.2 Benign neoplasm of ascending colon; D12.3 Benign neoplasm of transverse colon; K59.00 Constipation, unspecified; K64.8 Other hemorrhoids; Z87.891 Personal history of nicotine dependence
CPT/HCPCS: 88305

== ENCOUNTER → 2022-04-26 | Outpatient (CLI) | payer MEDICARE, MEDICAID ==
[~2022-04-26] MED LIST changes: +BARIUM for suspension 96% w/w (Vanilla Silq Medium Density) PO ONE; +BARIUM for suspension 98% w/w (Vanilla Silq High Density) PO ONE
--- NOTE | 2022-04-26 11:00 | Diagnostic Imaging Report ---
INDICATION: Constipation for the last year as well as abdominal pain and nausea. The overall study is significantly limited due to patient inability to stand and immobility. Therefore, the esophageal portion of the study was not performed. The patient does have a large hiatal hernia. Stomach is normal in configuration. The duodenal bulb is without deformity. There appears to be prompt emptying into the small bowel loops. IMPRESSION: Large hiatal hernia. No other significant abnormality is seen. Dictated by: Dictated on workstation # [id number]
--- NOTE | 2022-04-26 11:19 | Diagnostic Imaging Report ---
INDICATION: Constipation for one year as well as abdominal pain and nausea. FINDINGS: There is a large hiatal hernia. Stomach is normal in configuration. Small bowel has normal caliber. There appears to be normal progression of contrast through the small bowel without evidence of obstruction. The fold pattern is unremarkable. IMPRESSION: Large hiatal hernia. Small bowel study is otherwise unremarkable. Dictated by: Dictated on workstation # [id number]
== END ==
LOC: RAD 08:00
PROVIDERS: ATTEND Surgery
DX: K44.9 Diaphragmatic hernia without obstruction or gangrene (principal); K59.00 Constipation, unspecified; K21.9 Gastro-esophageal reflux disease without esophagitis
CPT/HCPCS: 74246; 74248